=== PATIENT | female | born 1935 | race Caucasian/White ===

== ENCOUNTER 2024-07-15 11:15 | Emergency (ER) | payer MEDICARE, MEDICAID, SELFPAY ==
[2024-07-15 11:18] VITALS: BP 133/66; PULSE 74; PULSE 88; RESP 16; TEMP 36.8; O2SAT 75; O2SAT 94; BMI 16.6
--- NOTE | 2024-07-15 11:25 | EKG_ITS ---
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
--- NOTE | 2024-07-15 11:25 | PC.NURSE ---
PT HX OF COPD ON 2L O2 AT HOME BASELINE. PCP CALLED AMBULANCE DUE TO PTS O2 DROPPING TO 75% ON ROOM AIR. EMS OPLAVED ON 6L AND WAS ABLE TO GET O2 UP TO 97%. PT DOES HAVE WET COUGH.
--- NOTE | 2024-07-15 11:41 | XR_ITS ---
Examination: AP chest single view TECHNIQUE: AP portable upright chest single view Exam date and time: July 15, 2024 11:28 AM INDICATIONS: Onset chest pain today. FINDINGS: Significant hyperexpansion Normal heart size Accentuation bronchovascular markings No lobar pneumonia or pulmonary edema Prominent osteopenia IMPRESSION: COPD Bronchitis pattern
--- NOTE | 2024-07-15 11:43 | PD.EDSOB ---
ED SOB =RME/HPI General Chief Complaint: Shortness of Breath/Dyspnea Stated Complaint: SOB Time Seen by Provider: 07/15/24 11:34 Arrival date/time: 07/15/24 11:15 RME / HPI RME / HPI Narrative: 88-year-old female patient with significant history of COPD, hypertension, was brought in by EMS for evaluation regarding shortness of breath. Onset of symptoms for the last 3 to 4 days as worsening cough, shortness of breath, severity moderate. Patient usually uses 2 L nasal cannula oxygen supplementation as needed. Patient was seen in the clinic today and was noted to have O2 sat of 76. Patient was given albuterol breathing treatment by EMS on the way to the emergency room. Positive exposure to flulike symptoms last week. Denies any chest pain. Denies any fever. Denies any other complaints no medications taken prior to arrival. Related Data Home Medications ?Medication ?Instructions ?Recorded ?Confirmed alprazolam 1 mg tablet (Xanax) 1 mg PO BID PRN Anxiety ##0 03/06/13 07/02/21 alendronate 70 mg tablet 70 mg PO QWEEK 07/02/21 07/02/21 budesonide-formoterol HFA 160 2 puff inhalation BID 07/02/21 07/02/21 mcg-4.5 mcg/actuation aerosol inhaler (Symbicort) calcium 600 mg (as 1 tab PO QDAY 07/02/21 07/02/21 carbonate)-vitamin D3 10 mcg (400 unit) tablet carvedilol 25 mg tablet 25 mg PO BID 07/02/21 07/02/21 loratadine 10 mg tablet 10 mg PO QDAY 07/02/21 07/02/21 montelukast 10 mg tablet 10 mg PO QDAY 07/02/21 07/02/21 tiotropium bromide 18 mcg capsule 1 cap inhalation QDAY 07/02/21 07/02/21 with inhalation device (Spiriva with HandiHaler) Previous Rx's ?Medication ?Instructions ?Recorded pantoprazole 40 mg tablet,delayed 40 mg PO QDAY #30 tabs 07/25/23 release (Protonix) albuterol sulfate 90 mcg/actuation 2 inh inhalation QID PRN shortness 07/15/24 breath activated powder of breath or wheezing #1 ea inhaler,sensor (Proair Digihaler) prednisone 50 mg tablet 50 mg PO QDAY #7 tabs 07/15/24 Allergies Allergy/AdvReac Type Severity Reaction Status Date / Time codeine Allergy Mild Vomiting Verified 07/15/24 11:24 Review of Systems Review of Systems Narrative Review of Systems: Review of system reviewed and within normal limits except mentioned in HPI ED Exam Narrative Physical exam: VITAL SIGNS: Reviewed. GENERAL APPEARANCE: Alert and interactive, follows commands, no acute distress, HEAD AND FACE: Non-traumatic. ENT: PERRL, pink conjunctivitis, eyelid no trauma, Mucous membrane moist. NECK: Supple, nontender, no nuchal rigidity. CHEST: No tenderness, no crepitus, no paradoxical movement, no retractions. LUNGS: Symmetric, + rales, no wheezing, + ronchi, no stridor, decreased breath sounds bilaterally. HEART: Regular rate, regular rhythm, no murmur, no gallops. ABDOMEN: Soft, positive bowel sounds, nondistended, no guarding, nontender, no rebound, no masses, RECTAL: Deferred. GENITAL: Deferred. NEUROLOGICAL: Gross motor function intact sensory function intact, Appropriate for age. MUSCULOSKELETAL: low back nontender, full range of motion. EXTREMITIES: Nontender, full range of motion. SKIN: Color pink, dry, no rash, no lacerations, no abrasions, no contusions. LYMPHATICS: Deferred. Course Quality Measures none Orders Category Date Time Status EKG (ED ONLY) *Do not use* NOW Care 07/15/24 11:25 Completed EKG (ED ONLY) *Do not use* NOW Care 07/15/24 11:41 Active EKG (ED Only) Stat Exams 07/15/24 11:25 Draft EKG (ED Only) Stat Exams 07/15/24 11:41 Ordered XR chest 1V Stat Exams 07/15/24 11:41 Completed B-Type Natriuretic Peptide Stat Lab 07/15/24 11:50 Completed Blood Culture (Lab) Stat Lab 07/15/24 11:47 Received C-Reactive Protein Stat Lab 07/15/24 11:50 Completed CBC Stat Lab 07/15/24 11:50 Completed Comprehensive Metabolic Panel Stat Lab 07/15/24 11:50 Completed Lactate (Lactic Acid) Stat Lab 07/15/24 11:50 Completed Partial Thromboplastin Time Stat Lab 07/15/24 11:50 Completed Procalcitonin Stat Lab 07/15/24 11:50 Completed Prothrombin Time with INR Stat Lab 07/15/24 11:50 Completed Troponin I Stat Lab 07/15/24 11:50 Completed VBG [Venous Blood Gas] Stat Lab 07/15/24 11:50 Completed Albuterol/Ipratr Rt Lorena [Duoneb Rt Lorena] Med 07/15/24 11:42 Discontinued 3 ml INH X1 ONE MethylPREDNISolone.* [SoluMEDROL Inj] Med 07/15/24 11:43 Discontinued 125 mg IVP X1 ONE Vital Signs Vital signs: Vital Signs Temperature 98.2 F 07/15/24 11:18 Pulse Rate 88 07/15/24 11:18 Respiratory Rate 16 07/15/24 11:18 Blood Pressure 133/66 H 07/15/24 11:18 Pulse Oximetry (%) 94 L 07/15/24 11:18 Oxygen Delivery Method Nasal Cannula 07/15/24 11:18 Oxygen Flow Rate 2 07/15/24 11:18 Shortness of Breath / Dyspnea MDM Narrative MDM Narrative:: 88-year-old female patient with significant history of COPD, hypertension, was brought in by EMS for evaluation regarding shortness of breath. Onset of symptoms for the last 3 to 4 days as worsening cough, shortness of breath, severity moderate. Patient usually uses 2 L nasal cannula oxygen supplementation as needed. Patient was seen in the clinic today and was noted to have O2 sat of 76. Patient was given albuterol breathing treatment by EMS on the way to the emergency room. Positive exposure to flulike symptoms last week. Denies any chest pain. Denies any fever. Denies any other complaints no medications taken prior to arrival. Patient data External records reviewed:: EMS form Clinical information provided by:: patient and EMS Social determinants that could affect healthcare access:: none Patient has the following chronic illnesses:: Hypertension, COPD How is presenting disease/condition affected by chronic disease/condition?: exacerbated by Evaluation data The following diagnostics were reviewed and interpreted by me:: lab results, radiology exam(s) and EKG tracing(s) Lab and/or radiology exams considered but not ordered:: None Interpretation Summary: EKG as interpreted by me showed atrial fibrillation, ventricular rate of 91 bpm, no ST segment elevation or depression noted. Laboratory work came back unremarkable. Her chest x-ray also showed no infiltrates no pneumothorax no hemothorax seen for COPD pattern. Medications / Prescriptions Medications or Prescriptions considered but not ordered:: None Medication administrations:: Medication Administration History Discontinued Medications Albuterol/Ipratropium (Albuterol/Ipratropium (Duoneb) Rt [place]ore[place] 3 Ml Nebu) 3 ml INH X1 ONE Stop: 07/15/24 11:43 Methylprednisolone Sodium Succinate (Methylprednisolone Sod Succ 62.5 Mg/Ml 2ml Vial) 125 mg IVP X1 ONE Stop: 07/15/24 11:44 Last Admin: 07/15/24 12:54 Dose: 125 mg Documented By: KASHIF Solu-Medrol IV and DuoNeb breathing treatment Consultations Consultation(s) initiated? (list below): No Diagnosis Shortness of Breath Differential Diagnosis: acute exacerbation of chronic obstructive airways disease, congestive heart failure and community acquired pneumonia Most likely diagnosis given after review of the tests above:: Acute exacerbation of COPD Admission Indicated Admission indicated?: not indicated Explain why admission is indicated or not indicated:: Stable for discharge. Patient is satting 96% on 2 L. Patient is using oxygen at home 17/03. Admission Request Was there a request for admission?: No Disposition Plan Disposition Plan: Discharge Discharge Attestation Discharge Attestation: The patient and all family members were given an opportunity to ask questions and understood the discharge instructions. Discharge instructions specifically effects, indications for sooner follow up or return to the emergency department, and the expected course of current diagnosis. Patient condition: Stable Discharge Plan Plan Patient Disposition: HOME (Self Care) Disposition Comment: Stable Prescriptions/Referrals Prescriptions/Med Rec: New prednisone 50 mg tablet 50 mg PO QDAY Qty: 7 0RF Proair Digihaler 90 mcg/actuation aero powdr breath act w/sensor 2 inh inhalation QID PRN (Reason: shortness of breath or wheezing) Qty: 1 0RF No Action alprazolam [Xanax] 1 MG tablet 1 mg PO BID PRN (Reason: Anxiety) Qty: 0 carvedilol 25 mg tablet 25 mg PO BID alendronate 70 mg tablet 70 mg PO QWEEK montelukast 10 mg tablet 10 mg PO QDAY loratadine 10 mg tablet 10 mg PO QDAY Spiriva with HandiHaler 18 mcg capsule, w/inhalation device 1 cap INHALATION QDAY calcium carbonate-vitamin D3 600 mg(1,500mg) -400 unit tablet 1 tab PO QDAY budesonide-formoterol [Symbicort] 160-4.5 mcg/actuation HFA aerosol inhaler 2 puff INHALATION BID pantoprazole [Protonix] 40 mg tablet,delayed release (DR/EC) 40 mg PO QDAY Qty: 30 0RF Referrals: No Primary/Family,Physician [Primary Care Provider] - In 1 week Problem List Clinical Impression: Acute exacerbation of chronic obstructive airways disease Patient/Caregiver Discharge Instructions Discharge Activity: activity as tolerated Education Materials: COPD: Coping with Fatigue Additional Instructions: Thank you for the opportunity for serving you today. You are stable for discharged . You are advised to: Follow-up with your PCP in 1 to 2 days Return to ED for worsening of symptoms Take medication as prescribed Print Language: Estonian Stand Alone Forms: Karen Award Info., Patient Portal Info Letter PA/SHY Supervising Physician GEE/SHY Supervising Physician: MD Misty
[2024-07-15 11:59] LABS: Base Excess, Venous 12 (-3-3); Lactate (Lactic Acid) 1.1 mMol/L (0.4-2.0); O2 Saturation, Venous 46 % (96-97); PCO2, Venous 74 mmHg (36-56); PO2, Venous 25 mmHg (15-58); pH, Venous 7.35 (7.33-7.66)
[2024-07-15 12:01] LABS: Basophils # (Auto) 0.1 Thou/mm3 (0.0-0.2); Basophils % (Auto) 1 % (0-2.5); Eosinophils % (Auto) 0 % (0-10); Hematocrit 40.9 % (36.0-46.0); Hemoglobin 12.4 g/dL (12.0-16.0); Immature Granulocytes % (Auto) 0 % (0-0); Immature Granulocytes Auto 0.02 Thou/mm3 (0.00-0.00); Lymphocytes % (Auto) 15 % (10-50); Mean Corpuscular HGB Conc 30.3 g/dl (31.0-37.0); Mean Corpuscular Hemoglobin 26.7 pg (25.0-35.0); Mean Corpuscular Volume 88 fL (80-100); Monocytes # (Auto) 0.5 Thou/mm3 (0.0-0.8); Monocytes % (Auto) 7 % (0-12); Neutrophils # (Auto) 5.2 Thou/mm3 (1.8-7.7); Neutrophils % (Auto) 77 % (37-80); Nucleated Red Blood Cell % 0 /100 WBC (0); Platelet Count 264 Thou/mm3 (140-440); RDW Standard Deviation 45.6 fL (36.4-46.3); Red Blood Count 4.64 Miln/mm3 (4.00-5.20); White Blood Count 6.7 Thou/mm3 (3.6-11.0)
[2024-07-15 12:15] LABS: Partial Thromboplastin Time 24.1 Seconds (22.0-36.0); Prothrombin Time 11.2 Seconds (9.0-12.2)
[2024-07-15 12:17] LABS: B-Type Natriuretic Peptide 218 pg/mL (0-100)
[2024-07-15 12:33] LABS: Alanine Aminotransferase 11 U/L (10-49); Albumin, Serum 4.3 gm/dL (3.4-4.8); Albumin/Globulin Ratio 1.5 (1.2-2.2); Alkaline Phosphatase 121 U/L (46-116); Anion Gap 2 (7-16); Aspartate Amino Transferase 21 U/L (0-34); BUN/Creatinine Ratio 13 Ratio (12-20); Bilirubin,Total 0.9 mg/dL (0.3-1.2); Blood Urea Nitrogen 12 mg/dL (9-23); C-Reactive Protein 1.3 mg/dL (0.0-0.9); Calcium 10.3 mg/dL (8.3-10.6); Calcium (Corrected) 10.3 mg/dL (8.5-10.1); Carbon Dioxide 37.6 mMol/L (20.0-31.0); Chloride 98 mMol/L (98-107); Creatinine (Component) 0.9 mg/dL (0.6-1.3); Estimated Creatinine Clearance 27.8 mL/min (>60); Globulin 2.8 gm/dL (2.3-3.5); Glucose 106 mg/dL (74-106); Osmolality,Calculated 275 (275-295); Potassium 4.3 mMol/L (3.4-5.1); Procalcitonin 0.91 ng/ml (0.0-0.49); Sodium 138 mMol/L (136-145); Total Protein 7.1 gm/dL (5.7-8.2); Troponin I < 0.020 ng/mL (0.0-0.045); eGFR > 60 See Note
[2024-07-15] MEDS: MethylPREDNISolone SOD SUCC 62.5 MG/ML 2ML VIAL 125 MG IVP (12:54)
== END 2024-07-15 17:00 | disposition home or self-care (01) ==
PROVIDERS: Nurse Practitioner Family; Emergency Provider Emergency Medicine
DX: J44.1 Chronic obstructive pulmonary disease with (acute) exacerbation (principal); I48.91 Unspecified atrial fibrillation; I10 Essential (primary) hypertension; Z79.51 Long term (current) use of inhaled steroids
CPT/HCPCS: 36415; 71045; 80053; 82803; 83605; 83880; 84145; 84484; 85025; 85610; 85730; 86140; 87040; 93005; 96374; 99284; J2919

== ENCOUNTER → 2024-09-29 | Outpatient (CLI) | payer MEDICARE, MEDICAID, SELFPAY ==
--- NOTE | 2024-09-29 10:30 | XR_ITS ---
Examination: MRI brain without intravenous contrast. Date and time of exam: September 29, 2024 1146 hours INDICATIONS: Psychosis with dementia months Technique: Multiple axial and sagittal images of the brain obtained. Siemens high-resolution 1.5 Heather short bore scanners utilized. Sagittal sections, T1-weighted, TR 500, TE 14, are performed. Axial sections proton-density and T2-weighted have been obtained. Inversion recovery axial images, TR 9, 260, TE 111, TI 2500. Diffusion weighted images, axial sections, TR 4800, TE 128, B value 1000 Axial sections, ADC map, TR 4800, TE 128 Findings: Enlargement of the sella turcica is not present. The optic chiasm and infundibular are not remarkable. Prepontine and interpeduncular cisterns are not enlarged. There is no localized enlargement of the medulla or remberto. Fourth ventricle and cerebellar tonsils appear normal in position. No subacute area of hemorrhage density is seen. Mass in the cerebellopontine angle region is not evident. Globes symmetrical. Orbital musculature including medial lateral rectus muscles do not exhibit abnormality. Diffusion-weighted images demonstrate no focus of restricted diffusion. Increased white matter signal prominent Mass effect upon the ventricular system is not identified. Impression: Negative for acute hemorrhage, mass effect or midline shift Moderate atrophy Prominent chronic microvascular white matter change
== END | disposition home or self-care (01) ==
PROVIDERS: PCP Family Medicine; Referring Provider Nurse Practitioner Family; Visit Provider Nurse Practitioner Family
DX: G93.9 Disorder of brain, unspecified (principal); R90.82 White matter disease, unspecified
CPT/HCPCS: 70551

== ENCOUNTER → 2024-11-10 | Outpatient (CLI) | payer MEDICARE, MEDICAID, SELFPAY ==
[2024-11-10 09:56] LABS: Basophils # (Auto) 0.1 Thou/mm3 (0.0-0.2); Basophils % (Auto) 2 % (0-2.5); Eosinophils # (Auto) 0.1 Thou/mm3 (0.0-0.5); Eosinophils % (Auto) 2 % (0-10); Hematocrit 41.4 % (36.0-46.0); Hemoglobin 12.5 g/dL (12.0-16.0); Immature Granulocytes % (Auto) 0 % (0-0); Immature Granulocytes Auto 0.01 Thou/mm3 (0.00-0.00); Lymphocytes # (Auto) 1.7 Thou/mm3 (1.0-4.8); Lymphocytes % (Auto) 29 % (10-50); Mean Corpuscular HGB Conc 30.2 g/dl (31.0-37.0); Mean Corpuscular Volume 83 fL (80-100); Monocytes # (Auto) 0.4 Thou/mm3 (0.0-0.8); Monocytes % (Auto) 8 % (0-12); Neutrophils # (Auto) 3.3 Thou/mm3 (1.8-7.7); Neutrophils % (Auto) 59 % (37-80); Nucleated Red Blood Cell % 0 /100 WBC (0); Platelet Count 275 Thou/mm3 (140-440); White Blood Count 5.7 Thou/mm3 (3.6-11.0)
[2024-11-10 10:03] LABS: Glucose Estimated Average 108 mg/dL (80-131); Hemoglobin A1C 5.4 % Hgb (4.8-6.0)
[2024-11-10 10:20] LABS: Folate 13.92 ng/mL (>5.38); Vitamin B12 > 2000 pg/mL (211-911); Vitamin D 25 Hydroxy Total 39.1 ng/mL (7.3-40.2)
[2024-11-10 10:29] LABS: Alanine Aminotransferase 8 U/L (10-49); Albumin, Serum 4.4 gm/dL (3.4-4.8); Albumin/Globulin Ratio 1.7 (1.2-2.2); Alkaline Phosphatase 137 U/L (46-116); Anion Gap 8 (7-16); Aspartate Amino Transferase 27 U/L (0-34); BUN/Creatinine Ratio 13 Ratio (12-20); Bilirubin,Total 0.8 mg/dL (0.3-1.2); Blood Urea Nitrogen 13 mg/dL (9-23); Calcium 10.3 mg/dL (8.3-10.6); Calcium (Corrected) 10.3 mg/dL (8.5-10.1); Carbon Dioxide 32.3 mMol/L (20.0-31.0); Cardiac Risk Estimate 2.2 RATIO (3.7-5.6); Chloride 101 mMol/L (98-107); Cholesterol 166 mg/dL (132-200); Globulin 2.6 gm/dL (2.3-3.5); Glucose 106 mg/dL (74-106); HDL Cholesterol 74 mg/dL (40-60); LDL Cholesterol,Calculated 77 mg/dL (0-130); Magnesium 2.3 mg/dL (1.6-2.6); Osmolality,Calculated 281 (275-295); Potassium 4.8 mMol/L (3.4-5.1); Sodium 141 mMol/L (136-145); Thyroid Stimulating Hormone 2.86 uIU/mL (0.55-4.78); Triglycerides 73 mg/dL (30-150); eGFR 55 See Note
[2024-11-10 11:13] LABS: Syphilis Nonreactive (Nonreactive)
[2024-11-17 07:21] LABS: Vitamin B1 (Thiamine)* 23 nmol/L (8-30); Vitamin B6, Plasma* 19.2 ng/mL (2.1-21.7)
== END | disposition home or self-care (01) ==
LOC: COPL 08:34
PROVIDERS: PCP Family Medicine; Referring Provider Psychiatry & Neurology Neurology; Visit Provider Nurse Practitioner Family
DX: E78.5 Hyperlipidemia, unspecified (principal); E83.52 Hypercalcemia; F03.90 Unspecified dementia, unspecified severity, without behavioral disturbance, psychotic disturbance, mood disturbance, and anxiety; F41.9 Anxiety disorder, unspecified; I10 Essential (primary) hypertension; R41.3 Other amnesia; R89.1 Abnormal level of hormones in specimens from other organs, systems and tissues
CPT/HCPCS: 36415; 80053; 80061; 80307; 82306; 82607; 82746; 83036; 83735; 83880; 84207; 84425; 84443; 85025; 86703; 86780

== ENCOUNTER → 2025-05-09 | Outpatient (CLI) | payer MEDICARE, MEDICAID, SELFPAY ==
[2025-05-09 11:56] LABS: Collection Type, Urine Clean Catch
[2025-05-09 12:20] LABS: Basophils # (Auto) 0.1 Thou/mm3 (0.0-0.2); Basophils % (Auto) 2 % (0-2.5); Eosinophils # (Auto) 0.1 Thou/mm3 (0.0-0.5); Eosinophils % (Auto) 3 % (0-10); Hematocrit 39.6 % (36.0-46.0); Hemoglobin 11.9 g/dL (12.0-16.0); Immature Granulocytes Auto 0.01 Thou/mm3 (0.00-0.00); Lymphocytes # (Auto) 1.5 Thou/mm3 (1.0-4.8); Lymphocytes % (Auto) 29 % (10-50); Mean Corpuscular HGB Conc 30.1 g/dl (31.0-37.0); Mean Corpuscular Hemoglobin 26.3 pg (25.0-35.0); Mean Corpuscular Volume 88 fL (80-100); Monocytes # (Auto) 0.5 Thou/mm3 (0.0-0.8); Monocytes % (Auto) 10 % (0-12); Neutrophils # (Auto) 3.1 Thou/mm3 (1.8-7.7); Neutrophils % (Auto) 58 % (37-80); Nucleated Red Blood Cell # 0.00 Thou/mm3 (0.00-0.00); Nucleated Red Blood Cell % 0 /100 WBC (0); Platelet Count 268 Thou/mm3 (140-440); RDW Standard Deviation 47.4 fL (36.4-46.3); Red Blood Count 4.52 Miln/mm3 (4.00-5.20); White Blood Count 5.3 Thou/mm3 (3.6-11.0)
[2025-05-09 12:29] LABS: Bilirubin,Urine Negative (Negative); Blood,Urine Negative (Negative); Clarity,Urine Clear (Clear/Hazy); Color,Urine Yellow (Lt Yel-Yel); Culture Indicated,Urine Not Indicated; Glucose, Urine Negative (Negative); Ketones,Urine Negative (Negative); Leukocyte Esterase,Urine Negative (Negative); Nitrite,Urine Negative (Negative); PH,Urine 6.0 (5.0-7.0); Protein,Urine Negative (Neg - Trace); RBC,Urine 1 /hpf (0-3); Specific Gravity,Urine 1.025 (1.001-1.035); Squamous Epithelial Cell,Urine 2 /hpf (0-5); Urobilinogen,Urine Negative mg/dL (0.0-1.0); WBC,Urine 2 /hpf (0-5)
[2025-05-09 12:37] LABS: Alanine Aminotransferase 10 U/L (10-49); Albumin, Serum 4.2 gm/dL (3.4-4.8); Albumin/Globulin Ratio 1.8 (1.2-2.2); Alkaline Phosphatase 88 U/L (46-116); Anion Gap 7 (7-16); Aspartate Amino Transferase 26 U/L (0-34); BUN/Creatinine Ratio 10 Ratio (12-20); Bilirubin,Total 0.6 mg/dL (0.3-1.2); Blood Urea Nitrogen 9 mg/dL (9-23); C-Reactive Protein < 0.5 mg/dL (0.0-0.9); Calcium 10.7 mg/dL (8.3-10.6); Calcium (Corrected) 10.7 mg/dL (8.5-10.1); Carbon Dioxide 35.6 mMol/L (20.0-31.0); Cardiac Risk Estimate 2.2 RATIO (3.7-5.6); Chloride 101 mMol/L (98-107); Cholesterol 159 mg/dL (132-200); Creatinine (Component) 0.9 mg/dL (0.6-1.3); Globulin 2.3 gm/dL (2.3-3.5); Glucose 116 mg/dL (74-106); HDL Cholesterol 71 mg/dL (40-60); LDL Cholesterol,Calculated 73 mg/dL (0-130); Magnesium 2.4 mg/dL (1.6-2.6); Osmolality,Calculated 286 (275-295); Potassium 4.1 mMol/L (3.4-5.1); Sodium 144 mMol/L (136-145); Total Protein 6.5 gm/dL (5.7-8.2); Triglycerides 75 mg/dL (30-150); eGFR > 60 See Note
== END | disposition home or self-care (01) ==
LOC: COPL 11:24
PROVIDERS: PCP Family Medicine; Referring Provider Nurse Practitioner Family; Visit Provider Nurse Practitioner Family
DX: E78.5 Hyperlipidemia, unspecified (principal); I12.9 Hypertensive chronic kidney disease with stage 1 through stage 4 chronic kidney disease, or unspecified chronic kidney disease; N18.9 Chronic kidney disease, unspecified; M81.0 Age-related osteoporosis without current pathological fracture; R89.1 Abnormal level of hormones in specimens from other organs, systems and tissues
CPT/HCPCS: 36415; 80053; 80061; 81001; 82306; 83735; 83880; 85025; 86140

== ENCOUNTER → 2025-05-25 | Outpatient (CLI) | payer MEDICARE, MEDICAID, SELFPAY ==
[2025-05-25 12:21] LABS: Parathyroid Hormone Intact 190.9 pg/ml (18.5-88.0)
[2025-05-25 12:25] LABS: Vitamin D 25 Hydroxy Total 35.7 ng/mL (7.3-40.2)
[2025-05-25 12:36] LABS: Anion Gap 9 (7-16); BUN/Creatinine Ratio 11 Ratio (12-20); Blood Urea Nitrogen 10 mg/dL (9-23); Calcium 10.3 mg/dL (8.3-10.6); Carbon Dioxide 34.3 mMol/L (20.0-31.0); Chloride 100 mMol/L (98-107); Creatinine (Component) 0.9 mg/dL (0.6-1.3); Glucose 111 mg/dL (74-106); Osmolality,Calculated 284 (275-295); Potassium 4.1 mMol/L (3.4-5.1); Sodium 143 mMol/L (136-145); eGFR > 60 See Note
== END | disposition home or self-care (01) ==
PROVIDERS: PCP Nurse Practitioner Family; Referring Provider Nurse Practitioner Family; Visit Provider Nurse Practitioner Family
DX: E83.52 Hypercalcemia (principal)
CPT/HCPCS: 36415; 80048; 82306; 83970

== ENCOUNTER → 2025-06-08 | Outpatient (CLI) | payer MEDICARE, MEDICAID, SELFPAY ==
--- NOTE | 2025-06-08 10:13 | XR_ITS ---
Examination: Wrist, right 3 views Technique: Wrist AP, oblique, lateral 3 views Date and time of exam: June 08, 2025, 1020 hours INDICATIONS: Cyst on the ulnar side of the right wrist over a year FINDINGS: Severe osteopenia Mild to moderate narrowing radiocarpal intercarpal carpometacarpal joints. No erosive arthritis. No fracture. No avascular necrosis. IMPRESSION: Severe osteopenia Mild to moderate narrowing radiocarpal intercarpal and carpometacarpal joints
--- NOTE | 2025-06-08 10:13 | XR_ITS ---
Examination: Hand, right 3 views Technique: Hand AP, oblique, lateral 3 views Date and time of exam: June 08, 2025, 1002 hours INDICATIONS: Palpable mass on the ulnar side of the wrist 1 year FINDINGS: Severe osteopenia. No fracture Mild to moderate diffuse narrowing joints of the wrist and hand No erosive arthritis IMPRESSION: Severe osteopenia Mild to moderate diffuse narrowing joints of the wrist and hand
[2025-06-08 12:49] LABS: Parathyroid Hormone Intact 175.5 pg/ml (18.5-88.0)
[2025-06-08 13:01] LABS: Calcium 10.5 mg/dL (8.3-10.6); Thyroid Stimulating Hormone 2.38 uIU/mL (0.55-4.78)
[2025-06-08 16:40] LABS: Free T4 (Free Thyroxine) 1.18 ng/dL (0.89-1.76)
== END | disposition home or self-care (01) ==
LOC: CDIM 10:03
PROVIDERS: PCP Family Medicine; Referring Provider Nurse Practitioner Family; Visit Provider Nurse Practitioner Gerontology
DX: M85.88 Other specified disorders of bone density and structure, other site (principal); M25.831 Other specified joint disorders, right wrist; M25.841 Other specified joint disorders, right hand; E21.3 Hyperparathyroidism, unspecified
CPT/HCPCS: 36415; 73110; 73130; 82310; 83970; 84439; 84443

== ENCOUNTER → 2025-06-13 | Outpatient (CLI) | payer MEDICARE, MEDICAID, SELFPAY ==
--- NOTE | 2025-06-13 | XR_ITS ---
Examination: Abdomen sonogram, Limited Date and time of exam: June 13, 2025, 1124 hours INDICATIONS: Onset left lower abdominal pain beginning 1 year ago Technique: Real-time adkins scale transabdominal sonographic images of the upper abdomen obtained. Findings: No cystic or solid mass at the area of concern in the left lower abdomen IMPRESSION: Negative study
--- NOTE | 2025-06-13 11:30 | XR_ITS ---
EXAMINATION: Ultrasound soft tissue extremity right wrist TECHNIQUE: Grayscale sonographic images soft tissue right wrist Date and time: June 13, 2025, 1120 hours INDICATIONS: Palpable wrist lump and pain several years. FINDINGS: Solid mass in the right wrist at the area of concern 2.9 x 0.6 x 2.7 cm IMPRESSION: Soft tissue mass isoechoic at the area of concern in the wrist 2.9 x 0.6 x 2.7 cm which may represent lipoma, consider 6-month follow-up ultrasound soft tissue wrist
== END | disposition home or self-care (01) ==
PROVIDERS: PCP Family Medicine; Referring Provider Nurse Practitioner Family; Visit Provider Nurse Practitioner Family
DX: R22.31 Localized swelling, mass and lump, right upper limb (principal); R10.9 Unspecified abdominal pain
CPT/HCPCS: 76705; 76882

== ENCOUNTER → 2025-06-23 | Outpatient (CLI) | payer MEDICARE, MEDICAID, SELFPAY ==
--- NOTE | 2025-06-23 10:52 | XR_ITS ---
Examination: CT abdomen without intravenous contrast. Coronal 2-D reconstructions. Sagittal 2-D reconstructions. Date and time of exam: May 27, 2025, 1104 hours, comparison July 25, 2023 INDICATIONS: Epigastric mass or lump in the abdomen 1 week CTDI: vol (mGy): 3.14 DLP: (mGycm): 97 Technique: Axial images of the abdomen have been obtained, 3 mm slice thickness, without intravenous contrast 2-D sagittal coronal reconstructions Low dose protocols were performed. One or more of the following dose reduction techniques were used; automated exposure control, adjustment of the mA and/or KV according to patient size, use of iterative reconstruction technique. Findings: No focal liver or splenic lesion No definite pancreatic mass No renal or ureteral calculi, no hydronephrosis No gallstones Heavy abdominal aortic calcification Abundant stool throughout the colon Colonic diverticulosis, no diverticulitis Partial visualization 3.5 cm posterior right pelvic cyst IMPRESSION: Limited noncontrast study of the abdomen No renal or ureteral calculi, no hydronephrosis Abundant stool throughout the colon, no obstruction Colonic diverticulosis, no diverticulitis Recommend pelvic sonography to assess 3.5 cm posterior right pelvic cyst
--- NOTE | 2025-06-23 10:52 | XR_ITS ---
EXAMINATION: Lumbar spine 3 views TECHNIQUE: AP lateral, lateral lower lumbar spine 3 views Date and time: June 23, 2025, 1114 hours INDICATIONS: Low back pain several years. FINDINGS: Severe osteopenia Lumbar dextroscoliosis 15 degrees Grade 1 anterolisthesis L4 on L5, L3 on L2 Diffuse lumbar degenerative disc disease, advanced at L2-L3, L3-L4, L5-S1 Prominent facet arthropathy IMPRESSION: Diffuse lumbar degenerative disc disease, advanced at L2-L3, L3-L4, L5-S1 with spinal stenosis
== END | disposition home or self-care (01) ==
PROVIDERS: PCP Nurse Practitioner Family; Referring Provider Nurse Practitioner Family; Visit Provider Nurse Practitioner Family
DX: M51.360 Other intervertebral disc degeneration, lumbar region with discogenic back pain only (principal); M51.370 Other intervertebral disc degeneration, lumbosacral region with discogenic back pain only; M48.07 Spinal stenosis, lumbosacral region; K59.00 Constipation, unspecified; K57.30 Diverticulosis of large intestine without perforation or abscess without bleeding
CPT/HCPCS: 72100; 74150

== ENCOUNTER → 2025-07-13 | Outpatient (CLI) | payer MEDICARE, MEDICAID, SELFPAY ==
--- NOTE | 2025-07-13 13:11 | XR_ITS ---
Examination: Pelvic ultrasound, transabdominal, complete Technique: Transabdominal ultrasound of the pelvis performed using grayscale imaging Date and time of exam: July 13, 2025, 1326 hours INDICATIONS: Pelvic pain and swelling beginning 1 year ago FINDINGS: Uterus 6.6 cm free fluid in the endometrium Endometrial stripe 11 mm No solid uterine mass Calcifications throughout the uterus Right ovary 5.1 cm arterial flow, 4.7 x 3.0 cm cyst Left ovary 7.7 cm arterial flow, solid left adnexal mass 7 6.7 cm IMPRESSION: Recommend MRI pelvis follow-up pre and postcontrast to assess solid left ovarian mass 6.7 x 4.5 x 4.9 cm, differential including ovarian tumor
--- NOTE | 2025-07-13 13:18 | XR_ITS ---
Examination: CT abdomen and pelvis without contrast. Coronal 3-D reconstructions. Sagittal 2-D reconstructions. Date and time of exam: July 13, 2025: 1352 hours, comparison June 23, 2025 INDICATIONS: Mid abdominal pain beginning 2 days ago CTDI: vol (mGy): 4.40 DLP: (mGycm): 204 Technique: Axial images of the abdomen have been obtained, 3 mm slice thickness Intravenous contrast material has not been administered. Low dose protocols were performed. One or more of the following dose reduction techniques were used; automated exposure control, adjustment of the mA and/or KV according to patient size, use of iterative reconstruction technique. Findings: No visualized liver or splenic lesion Gallbladder not visualized No extrahepatic biliary tract dilatation No pancreatic mass No renal or ureteral calculi, no hydronephrosis No bowel obstruction Normal appendix Colonic diverticulosis, no diverticulitis 3.7 cm right pelvic cyst Urinary bladder intact Atrophic uterus Severe osteopenia with advanced disc narrowing L2-L3, L3-L4, L5-S1 IMPRESSION: Recommend pelvic sonography to assess 3.7 cm right pelvic cyst
--- NOTE | 2025-07-13 13:45 | XR_ITS ---
EXAMINATION: PA lateral chest 2 views TECHNIQUE: Upright PA lateral chest 2 views Date and time: July 13, 2025, 1430 hours INDICATIONS: Chronic shortness of breath COPD diagnosis FINDINGS: Prominent hyperexpansion. Opacity right upper lobe suspicious for early pneumonia Prominent central pulmonary arteries Severe osteopenia Normal heart size IMPRESSION: COPD with significant hyperexpansion Suspicious for early pneumonia in the right upper lobe
[2025-07-13 15:15] LABS: Basophils # (Auto) 0.1 Thou/mm3 (0.0-0.2); Basophils % (Auto) 2 % (0-2.5); Eosinophils # (Auto) 0.6 Thou/mm3 (0.0-0.5); Eosinophils % (Auto) 7 % (0-10); Hematocrit 40.1 % (36.0-46.0); Hemoglobin 11.9 g/dL (12.0-16.0); Immature Granulocytes Auto 0.03 Thou/mm3 (0.00-0.00); Lymphocytes # (Auto) 1.3 Thou/mm3 (1.0-4.8); Lymphocytes % (Auto) 15 % (10-50); Mean Corpuscular HGB Conc 29.7 g/dl (31.0-37.0); Mean Corpuscular Hemoglobin 25.7 pg (25.0-35.0); Mean Corpuscular Volume 87 fL (80-100); Monocytes # (Auto) 0.9 Thou/mm3 (0.0-0.8); Monocytes % (Auto) 10 % (0-12); Neutrophils # (Auto) 5.9 Thou/mm3 (1.8-7.7); Neutrophils % (Auto) 66 % (37-80); Nucleated Red Blood Cell # 0.00 Thou/mm3 (0.00-0.00); Nucleated Red Blood Cell % 0 /100 WBC (0); Platelet Count 460 Thou/mm3 (140-440); RDW Standard Deviation 45.5 fL (36.4-46.3); Red Blood Count 4.63 Miln/mm3 (4.00-5.20); White Blood Count 8.9 Thou/mm3 (3.6-11.0)
[2025-07-13 15:42] LABS: Alanine Aminotransferase < 7 U/L (10-49); Albumin, Serum 4.6 gm/dL (3.4-4.8); Albumin/Globulin Ratio 1.8 (1.2-2.2); Alkaline Phosphatase 119 U/L (46-116); Anion Gap 10 (7-16); Aspartate Amino Transferase 22 U/L (0-34); BUN/Creatinine Ratio 13 Ratio (12-20); Bilirubin,Total 0.4 mg/dL (0.3-1.2); Blood Urea Nitrogen 10 mg/dL (9-23); Calcium 10.2 mg/dL (8.3-10.6); Calcium (Corrected) 10.2 mg/dL (8.5-10.1); Carbon Dioxide 35.1 mMol/L (20.0-31.0); Chloride 98 mMol/L (98-107); Creatinine (Component) 0.8 mg/dL (0.6-1.3); Globulin 2.6 gm/dL (2.3-3.5); Glucose 111 mg/dL (74-106); Lipase 30 U/L (12-53); Osmolality,Calculated 284 (275-295); Potassium 3.3 mMol/L (3.4-5.1); Sodium 143 mMol/L (136-145); Total Protein 7.2 gm/dL (5.7-8.2); eGFR > 60 See Note
== END | disposition home or self-care (01) ==
LOC: CCTX 12:55
PROVIDERS: PCP Nurse Practitioner Family; Referring Provider Nurse Practitioner Family; Visit Provider Nurse Practitioner Family
DX: R19.00 Intra-abdominal and pelvic swelling, mass and lump, unspecified site (principal); N83.8 Other noninflammatory disorders of ovary, fallopian tube and broad ligament; J44.9 Chronic obstructive pulmonary disease, unspecified
CPT/HCPCS: 36415; 71046; 74176; 76856; 80053; 83690; 85025

== ENCOUNTER 2025-07-25 12:53 | Emergency (ER) | payer MEDICARE, MEDICAID, SELFPAY ==
[2025-07-25 12:57] VITALS: BP 125/73; PULSE 70; RESP 18; TEMP 36.3; O2SAT 96
[2025-07-25 13:07] VITALS: PULSE 88; O2SAT 96
--- NOTE | 2025-07-25 13:13 | EKG_ITS ---
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1935 Requested By: ED Temporary Provider Order Number: [id number] Reading MD: ED Temporary Provider Measurements Intervals [place] Rate: 72 P: 88 MS: 294 QRS: 68 QRSD: 93 T: 46 QT: 390 QTc: 427 Interpretive Statements SINUS RHYTHM WITH FIRST DEGREE AV BLOCK ANTERIOR MYOCARDIAL INFARCTION , PROBABLY OLD [40+ ms Q WAVE AND/OR ST/T ABNORMALITY IN V3/V4] POSSIBLE INFERIOR MYOCARDIAL INFARCTION , PROBABLY OLD [30 ms Q WAVE IN II/aVF] Compared to ECG 07/15/2024 11:34:14 First degree AV block now present Atrial fibrillation no longer present Myocardial infarct finding still present /store/S0/[id number]/[id number]
--- NOTE | 2025-07-25 13:23 | XR_ITS ---
EXAMINATION: AP chest single view TECHNIQUE: AP portable semiupright chest single view Date and time: July 25, 2025, 1337 hours, comparison July 13, 2025 INDICATION: Shortness of breath today. FINDINGS: Normal heart size Mild to moderate vascular congestion. No interval pneumonia or pulmonary edema Prominent osteopenia IMPRESSION: Mild to moderate vascular congestion
--- NOTE | 2025-07-25 13:23 | EDNOTE_ITS ---
<Statement entered by Ila You MD - 07/25/25 17:15> As co-signing physician, I was present and available for consult prn. I concur with the plan and care as documented by the midlevel provider. ED General RME/HPI General Chief complaint: Weakness Stated complaint: WEAKNESS Time Seen by Provider: 07/25/25 13:17 Arrival date/time: 07/25/25 12:53 CC: Weakness HPI patient presents to the ER via EMS with generalized weakness. Patient states her son called the ambulance. Patient is noted to be mildly tachypneic with anterior retractions while speaking to me. The patient states she no longer smoke. EMS report that she uses oxygen at nighttime however the patient states she does not use oxygen initial assessment the patient's oxygen saturations were 97% on room air. Patient currently denies chest pain. Related Data Home Medications ?Medication ?Instructions ?Recorded ?Confirmed alprazolam 1 mg tablet (Xanax) 1 mg PO BID PRN Anxiety ##0 03/06/13 07/02/21 alendronate 70 mg tablet 70 mg PO QWEEK 07/02/2104/14 budesonide-formoterol HFA 160 2 puff inhalation BID 07/02/21 mcg-4.5 mcg/actuation aerosol inhaler (Symbicort) calcium 600 mg (as 1 tab PO QDAY 07/02/2107/02 carbonate)-vitamin D3 10 mcg (400 unit) tablet carvedilol 25 mg tablet 25 mg PO BID 07/02/21 loratadine 10 mg tablet 10 mg PO QDAY 07/02/2107/02 montelukast 10 mg tablet 10 mg PO QDAY 07/02/2107/02 tiotropium bromide 18 mcg capsule 1 cap inhalation QDA Y 07/02/21 07/02/21 with inhalation device (Spiriva with HandiHaler) Previous Rx's ?Medication ?Instructions ?Recorded pantoprazole 40 mg tablet,delayed 40 mg PO QDAY #30 ta bs 07/25/23 release (Protonix) albuterol sulfate 90 mcg/actuation 2 inh inhalation QI D PRN shortness 07/15/24 breath activated powder of breath or wheezing #1 ea inhaler,sensor (Proair Digihaler) prednisone 50 mg tablet 50 mg PO QDAY #7 tabs Allergies Allergy/AdvReac Type Severity Reaction Status Date / Time codeine Allergy Mild Vomiting Verified 07/15/24 11:24 Review of Systems Review of Systems Narrative Review of Systems: GEN: No fever, no chills, no weight loss EYES: No discharge, no visual changes, no pain HEENT: No ear pain, no congestion, no sore throat PULM: No shortness of breath, no cough, no congestion CV: No chest pain, no dyspnea on exertion, no palpitations GI: No nausea, no vomiting, no diarrhea, no pain, no constipation : No frequency, no urgency, no dysuria MUSC/SKEL: No joint pain, no back pain SKIN: No rash PSYCH: No hallucinations, no depression HEME/LYMPH: No easy bleeding or bruising tendencies NEURO: + weakness, no headache Past Medical History Past Medical History CARDIAC: Positive Hypertension; Negative Cardiac Disorders or Congestive Heart Failure RESPIRATORY: Positive Asthma; Negative Chronic Obstructive Pulmonary Disease (COPD) GENITOURINARY: Negative Renal Disease ENDOCRINE: Negative Diabetes Mellitus Type 1 or Diabetes Mellitus Type 2 HEMATOLOGIC: Negative Sickle Cell Disease Social History SMOKING STATUS: Unknown if ever smoked SECOND HAND EXPOSURE: Yes ED Exam Narrative Physical exam: [General: Thin borderline emaciated appears not in any acute distress Head normocephalic HEENT: Eyes pupils are PERRLA EOMs are intact mouth [place] dry membranes uvula is midline swallow symmetrical phonation is normal. Hard of hearing. All other subsystems of HEENT are within acceptable limits Neck is supple nontender Chest equal chest rise nontender to palpation subtle base of neck retractions. Respiratory: Clear to auscultation no wheezes crackles or rubs CV: Rate rhythm is regular no murmurs rubs or clicks Abdomen is soft nontender no masses positive bowel sounds all 4 quadrants Back: No CVA tenderness no spinous process tenderness from cervical spine thoracic and lumbar spine Skin: Intact no petechiae rash induration ulceration or crepitus Extremities: Moving all extremity against resistance cap refill less than 2 seconds neurosensory intact Neuro: Awake alert oriented x2, person and place, Glascow coma 15 no focal deficits] Course Course Course Narrative: Patient remained stable on 2 L nasal cannula oxygen saturations of 96%. Review the laboratory results show that the patient has no acute finding requires emergent or immediate intervention. Sodium is mildly elevated no other acute finding other than she is positive for benzos. This may contribute to her fatigue or weakness. Chest x-ray shows the patient has some vascular congestion. But no pneumonia. Patient will be discharged home for weakness. Quality Measures none Orders Category Date Time Status EKG (ED ONLY) *Do not use* NOW Care 07/25/25 13:13 Completed In and Out Catheter X1 Care 07/25/25 13:29 Completed EKG (ED Only) Stat Exams 07/25/25 13:13 Draft XR chest 1V Stat Exams 07/25/25 13:23 Completed B-Type Natriuretic Peptide Stat Lab 07/25/25 13:56 Completed CBC Stat Lab 07/25/25 13:56 Completed Comprehensive Metabolic Panel Stat Lab 07/25/25 13:56 Completed Drug Screen,Urine Stat Lab 07/25/25 13:35 Completed LDH (Lactate Dehydrogenase) Stat Lab 07/25/25 13:56 Completed Magnesium Stat Lab 07/25/25 13:56 Completed Partial Thromboplastin Time Stat Lab 07/25/25 13:56 Completed Prothrombin Time with INR Stat Lab 07/25/25 13:56 Completed Troponin I Stat Lab 07/25/25 13:56 Completed Urinalysis, C/S if Indicated Stat Lab 07/25/25 13:35 Completed Vital Signs Vital signs: Vital Signs Temperature 97.4 F 07/25/25 12:57 Pulse Rate 70 07/25/25 12:57 Respiratory Rate 18 07/25/25 12:57 Blood Pressure 125/73 07/25/25 12:57 Pulse Oximetry (%) 96 07/25/25 12:57 Oxygen Delivery Method Nasal Cannula 07/25/25 12:57 Oxygen Flow Rate 4 07/25/25 12:57 Discharge Plan Plan Patient Disposition: HOME (Self Care) Patient condition on transfer: Stable Prescriptions/Referrals Prescriptions/Med Rec: No Action alprazolam [Xanax] 1 MG tablet 1 mg PO BID PRN (Reason: Anxiety) Qty: 0 carvedilol 25 mg tablet 25 mg PO BID alendronate 70 mg tablet 70 mg PO QWEEK montelukast 10 mg tablet 10 mg PO QDAY loratadine 10 mg tablet 10 mg PO QDAY Spiriva with HandiHaler 18 mcg capsule, w/inhalation device 1 cap INHALATION QDAY calcium carbonate-vitamin D3 600 mg(1,500mg) -400 unit tablet 1 tab PO QDAY budesonide-formoterol [Symbicort] 160-4.5 mcg/actuation HFA aerosol inhaler 2 puff INHALATION BID pantoprazole [Protonix] 40 mg tablet,delayed release (DR/EC) 40 mg PO QDAY Qty: 30 0RF prednisone 50 mg tablet 50 mg PO QDAY Qty: 7 0RF Proair Digihaler 90 mcg/actuation aero powdr breath act w/sensor 2 inh inhalation QID PRN (Reason: shortness of breath or wheezing) Qty: 1 0RF Ref[facility]: [facility] Cornell[facility]MD [Primary Care Provider, Family Practice] - In 1 week Problem List Clinical Impression: Weakness Patient/Caregiver Discharge Instructions Other Activity Instructions:: Hold off on the Xanax. Follow-up with your primary care doctor. If there is a worsening of symptoms in spite of this intervention return to the emergency room meetly for further evaluation. Education Materials: ED Weakness (Uncertain Cause) Print Language: Zimbabwean Stand Alone Forms: Source Audio Award Info., Patient Portal Info Letter PA/RIG MANAGER Supervising Physician PA/RIG MANAGER Supervising Physician: Eliezer Bond ENP [facility] Clinical Information Provided by: patient and EMS [facility] and [facility] Meds/Rx considered, not ordered None Labs/Rad/Tests considered, not ordered None Chronic Illness/Social Conditions which may negatively complicate care or outcome(s)-explain: COPD EKG Interpretation EKG #1: EKG Interpretation: EKG performed at 1320 shows a ventricular rate of 72 IA interval 294 QRS of 93 QTc of 413 sinus rhythm first-degree block. Labs Labs: interpreted by ms Lab(s) Interpretation(s): CBC shows no acute leukocytosis anemia or thrombocytopenia Coags within acceptable notes Sodium of 147 CO2 of 37.7 gap of 8 BUN of 8 glucose of 120 no other electrolyte imbalances renal impairment transaminitis or T. bili elevation Troponin is negative BNP is 309. Urine shows 1+ protein no other acute finding UDS shows patient is benzo positive.. Imaging Imaging interpretation: interpreted by ms Imaging Interpretation(s): Mild to moderate vascular congestion.
[2025-07-25 13:32] VITALS: TEMP 36.6
[2025-07-25 13:41] LABS: Collection Type, Urine Clean Catch
--- NOTE | 2025-07-25 13:48 | PC.NURSE ---
XRAY AT BEDSIDE OBTAINING IMAGES.
--- NOTE | 2025-07-25 14:06 | PC.NURSE ---
PT LISY RODRIGUEZ CELL#[phone]. STATES IF POSSIBLE TO CALL WHEN WE HAVE ANY UPDATES
[2025-07-25 14:18] LABS: Basophils # (Auto) 0.1 Thou/mm3 (0.0-0.2); Basophils % (Auto) 1 % (0-2.5); Eosinophils # (Auto) 0.1 Thou/mm3 (0.0-0.5); Eosinophils % (Auto) 1 % (0-10); Hematocrit 36.3 % (36.0-46.0); Hemoglobin 10.3 g/dL (12.0-16.0); Immature Granulocytes Auto 0.04 Thou/mm3 (0.00-0.00); Lymphocytes # (Auto) 0.6 Thou/mm3 (1.0-4.8); Lymphocytes % (Auto) 7 % (10-50); Mean Corpuscular HGB Conc 28.4 g/dl (31.0-37.0); Mean Corpuscular Hemoglobin 24.9 pg (25.0-35.0); Mean Corpuscular Volume 88 fL (80-100); Monocytes # (Auto) 0.9 Thou/mm3 (0.0-0.8); Monocytes % (Auto) 10 % (0-12); Neutrophils # (Auto) 7.8 Thou/mm3 (1.8-7.7); Neutrophils % (Auto) 82 % (37-80); Nucleated Red Blood Cell # 0.00 Thou/mm3 (0.00-0.00); Nucleated Red Blood Cell % 0 /100 WBC (0); Platelet Count 363 Thou/mm3 (140-440); RDW Standard Deviation 48.3 fL (36.4-46.3); Red Blood Count 4.13 Miln/mm3 (4.00-5.20); White Blood Count 9.6 Thou/mm3 (3.6-11.0)
[2025-07-25 14:29] LABS: Bilirubin,Urine Negative (Negative); Blood,Urine Trace (Negative); Clarity,Urine Clear (Clear/Hazy); Color,Urine Yellow (Lt Yel-Yel); Culture Indicated,Urine Not Indicated; Glucose, Urine Negative (Negative); Ketones,Urine Trace (Negative); Leukocyte Esterase,Urine Negative (Negative); Nitrite,Urine Negative (Negative); PH,Urine 5.5 (5.0-7.0); Protein,Urine 1+ (Neg - Trace); RBC,Urine 2 /hpf (0-3); Specific Gravity,Urine 1.022 (1.001-1.035); Squamous Epithelial Cell,Urine < 1 /hpf (0-5); Urobilinogen,Urine 2.0 mg/dL (0.0-1.0); WBC,Urine 1 /hpf (0-5)
[2025-07-25 14:33] LABS: INR 1.1 (0.9-1.3); Partial Thromboplastin Time 27.2 Seconds (22.0-36.0); Prothrombin Time 11.5 Seconds (9.0-12.2)
[2025-07-25 14:38] LABS: Alanine Aminotransferase < 7 U/L (10-49); Albumin, Serum 3.6 gm/dL (3.4-4.8); Albumin/Globulin Ratio 1.3 (1.2-2.2); Alkaline Phosphatase 93 U/L (46-116); Anion Gap 8 (7-16); Aspartate Amino Transferase 15 U/L (0-34); BUN/Creatinine Ratio 11 Ratio (12-20); Bilirubin,Total 0.3 mg/dL (0.3-1.2); Blood Urea Nitrogen 8 mg/dL (9-23); Calcium 9.8 mg/dL (8.3-10.6); Calcium (Corrected) 10.1 mg/dL (8.5-10.1); Carbon Dioxide 37.9 mMol/L (20.0-31.0); Chloride 101 mMol/L (98-107); Creatinine (Component) 0.7 mg/dL (0.6-1.3); Globulin 2.8 gm/dL (2.3-3.5); Glucose 120 mg/dL (74-106); LDH (Lactate Dehydrogenase) 178 U/L (120-246); Magnesium 2.1 mg/dL (1.6-2.6); Osmolality,Calculated 291 (275-295); Potassium 4.2 mMol/L (3.4-5.1); Sodium 147 mMol/L (136-145); Total Protein 6.4 gm/dL (5.7-8.2); Troponin I < 0.020 ng/mL (0.0-0.045); eGFR > 60 See Note
[2025-07-25 14:42] LABS: B-Type Natriuretic Peptide 309 pg/mL (0-100)
[2025-07-25 14:45] LABS: Amphetamine/Methamp Scrn,U Negative (Negative); Barbiturate Screen,Urine Negative (Negative); Benzodiazepines Screen,Urine Positive (Negative); Benzoylecgonine Screen, Ur Negative (Negative); Fentanyl Screen,Urine Negative (Negative); Opiate Screen,Urine Negative (Negative); THC Screen,Urine Negative (Negative)
[2025-07-25 15:25] VITALS: BP 123/56; PULSE 69; RESP 19; TEMP 36.9; O2SAT 95
[2025-07-25 17:06] VITALS: BP 121/60; PULSE 64; RESP 20; O2SAT 97
== END 2025-07-25 17:07 | disposition home or self-care (01) ==
PROVIDERS: Registered Nurse General Practice; Emergency Provider Emergency Medicine; PCP Family Medicine
DX: R53.1 Weakness (principal); R09.89 Other specified symptoms and signs involving the circulatory and respiratory systems; I44.0 Atrioventricular block, first degree; I10 Essential (primary) hypertension
CPT/HCPCS: 36415; 51701; 71045; 80053; 80307; 81001; 83615; 83735; 83880; 84484; 85025; 85610; 85730; 93005; 99283

== ENCOUNTER 2025-07-28 13:05 | Inpatient (IN) | payer MEDICARE, MEDICAID, SELFPAY ==
[2025-07-28] VITALS (9 sets, daily range): BP systolic 108–143; BP diastolic 47–66; PULSE 76–104; RESP 16–18; TEMP 36.9–38.3; O2SAT 86–100; BMI 17.9
--- NOTE | 2025-07-28 13:07 | EKG_ITS ---
[facility] Test Date: 2025-07-28 Pat Name: SUELLEN OLIVAS Department: Room: - Gender: Female Roofer Apprentice: : 1935 Requested By: Eliezer Arriola Order Number: [id number] Reading MD: Eliezer Arriola Measurements Intervals [place] Rate: 88 P: 85 FL: 305 QRS: 33 QRSD: 87 T: 39 QT: 341 QTc: 414 Interpretive Statements SINUS RHYTHM WITH FIRST DEGREE AV BLOCK WITH FREQUENT SUPRAVENTRICULAR PREMATURE COMPLEXES PROBABLE INFERIOR MYOCARDIAL INFARCTION , PROBABLY OLD [35 ms Q WAVE IN II/aVF] Compared to ECG 07/25/2025 13:20:07 No significant changes /store/S0/[id number].pdf
--- NOTE | 2025-07-28 14:21 | EDNOTE_ITS ---
ED General RME/HPI General Chief complaint: Nausea/Vomiting/Diarrhea Stated complaint: DIARRHEA Time Seen by Provider: 07/28/25 13:07 Arrival date/time: 07/28/25 13:05 CC: Weakness and diarrhea HPI patient has had diarrhea for 1 week was seen by her son who is checking in on her. Patient lives by herself, patient requires oxygen for COPD. EMS reports mildly tachycardic. Also report that the patient recently finished antibiotics for pneumonia. Patient is awake alert somewhat slow and responding to questions. But answering all questions appropriately. Has no physical pain including chest pain. Related Data Home Medications ?Medication ?Instructions ?Recorded ?Confirmed alprazolam 1 mg tablet (Xanax) 1 mg PO BID PRN Anxiety ##0 03/06/13 07/02/21 alendronate 70 mg tablet 70 mg PO QWEEK 07/02/2104/14 budesonide-formoterol HFA 160 2 puff inhalation BID 07/02/21 mcg-4.5 mcg/actuation aerosol inhaler (Symbicort) calcium 600 mg (as 1 tab PO QDAY 07/02/2107/02 carbonate)-vitamin D3 10 mcg (400 unit) tablet carvedilol 25 mg tablet 25 mg PO BID 07/02/21 loratadine 10 mg tablet 10 mg PO QDAY 07/02/2107/02 montelukast 10 mg tablet 10 mg PO QDAY 07/02/2107/02 tiotropium bromide 18 mcg capsule 1 cap inhalation QDA Y 07/02/21 07/02/21 with inhalation device (Spiriva with HandiHaler) Previous Rx's ?Medication ?Instructions ?Recorded pantoprazole 40 mg tablet,delayed 40 mg PO QDAY #30 ta bs 07/25/23 release (Protonix) albuterol sulfate 90 mcg/actuation 2 inh inhalation QI D PRN shortness 07/15/24 breath activated powder of breath or wheezing #1 ea inhaler,sensor (Proair Digihaler) prednisone 50 mg tablet 50 mg PO QDAY #7 tabs Allergies Allergy/AdvReac Type Severity Reaction Status Date / Time codeine Allergy Mild Vomiting Verified 07/28/25 13:14 Review of Systems Review of Systems Narrative Review of Systems: GEN: No fever, no chills, no weight loss EYES: No discharge, no visual changes, no pain HEENT: No ear pain, no congestion, no sore throat PULM: No shortness of breath, no cough, no congestion CV: No chest pain, no dyspnea on exertion, no palpitations GI: No nausea, no vomiting, + diarrhea, no pain, no constipation : No frequency, no urgency, no dysuria MUSC/SKEL: No joint pain, no back pain SKIN: No rash PSYCH: No hallucinations, no depression HEME/LYMPH: No easy bleeding or bruising tendencies NEURO: No weakness, no headache Past Medical History Past Medical History CARDIAC: Positive Hypertension; Negative Cardiac Disorders or Congestive Heart Failure RESPIRATORY: Positive Asthma; Negative Chronic Obstructive Pulmonary Disease (COPD) GENITOURINARY: Negative Renal Disease ENDOCRINE: Negative Diabetes Mellitus Type 1 or Diabetes Mellitus Type 2 HEMATOLOGIC: Negative Sickle Cell Disease Social History SMOKING STATUS: Current some day smoker SECOND HAND EXPOSURE: Yes ED Exam Narrative Physical exam: [General: Thin but not emaciated not in any acute distress Head normocephalic HEENT: Eyes pupils are PERRLA EOMs are intact mouth is pink and dry swallow symmetrical phonation is normal. All other subsystems of HEENT are within acceptable limits Neck is supple nontender no JVD no LAD no edema Chest equal chest rise nontender to palpation Respiratory: Clear to auscultation no wheezes crackles or rubs CV: Rate rhythm is regular no murmurs rubs or clicks Abdomen is soft nontender no masses positive bowel sounds all 4 quadrants Back: No CVA tenderness no spinous process tenderness from cervical spine thoracic and lumbar spine Skin: Intact no petechiae rash induration ulceration or crepitus Extremities: Moving all extremity against resistance cap refill less than 2 seconds neurosensory intact Neuro: Awake alert oriented x2, person and place, Glascow coma 15 no focal deficits] Course Course Course Narrative: Patient's case clinical findings laboratory results and imaging discussed with resident for Dr. Chong, who is requesting an additional liter LR. 2226 I was informed the patient will be admitted for dehydration diarrhea Quality Measures none Orders Category Date Time Status COVID-19 Screening Questionnaire NOW Care 07/28/25 22:08 Active Golf Cart Assembler STAT Care 07/28/25 16:34 Active Continuous Pulse Oximetry STAT Care 07/28/25 16:34 Completed Decision to Admit X1 Care 07/28/25 22:08 Active EKG (ED ONLY) *Do not use* NOW Care 07/28/25 13:07 Completed Brower [Urinary Catheter] QS Care 07/28/25 20:23 Active In and Out Catheter X1PRN Care 07/28/25 16:34 Completed Insert IV NOW Care 07/28/25 16:34 Active NPO STAT Care 07/28/25 16:34 Active Strict Intake and Output Routine Care 07/28/25 16:[address] chest abdomen pelvis wo Stat Exams 07/28/25 16:35 Completed EKG (ED Only) Stat Exams 07/28/25 13:07 Draft B-Type Natriuretic Peptide Stat Lab 07/28/25 14:50 Completed Blood Culture (Lab) Stat Lab 07/28/25 17:00 Received CBC Stat Lab 07/28/25 14:50 Completed Comprehensive Metabolic Panel Stat Lab 07/28/25 14:50 Completed Drug Screen,Urine Stat Lab 07/28/25 16:20 Completed LDH (Lactate Dehydrogenase) Stat Lab 07/28/25 16:55 Completed Lactate (Lactic Acid) Stat Lab 07/28/25 16:55 Completed Lipase Stat Lab 07/28/25 14:50 Completed Magnesium Stat Lab 07/28/25 14:50 Completed Magnesium Stat Lab 07/28/25 16:55 Completed Partial Thromboplastin Time Stat Lab 07/28/25 14:50 Completed Phosphorous Stat Lab 07/28/25 16:55 Completed Procalcitonin Stat Lab 07/28/25 16:55 Completed Prothrombin Time with INR Stat Lab 07/28/25 14:50 Completed Troponin I Stat Lab 07/28/25 16:55 Completed Urinalysis, C/S if Indicated Stat Lab 07/28/25 16:20 Completed c diff [Clostridium Difficile PCR] Stat Lab 07/28/25 16:20 Received Acetaminophen Ivpb [Ofirmev Inj] 60 ml Med 07/28/25 16:45 Discontinued IV X1 POTASSIUM CHL 10 mEq IVPB [Kcl Ivpb] Med 07/28/25 21:08 Active 10 meq in 100 ml IV Q1H Ringers Lactated 1000 ml [Lactated Ringers] 1,000 ml Med 07/28/25 15:25 Discontinued IV 999 mls/hr Ringers Lactated 1000 ml [Lactated Ringers] 1,000 ml Med 07/28/25 22:07 Active IV 999 mls/hr Ringers Lactated 500 ml [Lactated Ringers] 500 ml Med 07/28/25 16:35 Discontinued IV 999 mls/hr Sodium Chloride 0.9% 1000 ml [Ns] 1,000 ml Med 07/28/25 16:41 Active IV 85 mls/hr Oxygen Delivery NOW RT 07/28/25 16:34 Active Vital Signs Vital signs: Vital Signs Temperature 99.8 F 07/28/25 13:06 Pulse Rate 93 07/28/25 13:06 Respiratory Rate 16 07/28/25 13:06 Blood Pressure 117/66 07/28/25 13:06 Pulse Oximetry (%) 91 L 07/28/25 13:06 Discharge Plan Plan Patient Disposition: Other Care w/in Hosp (SDC/FRACISCO) Patient condition on transfer: Stable Prescriptions/Referrals Prescriptions/Med Rec: No Action alprazolam [Xanax] 1 MG tablet 1 mg PO BID PRN (Reason: Anxiety) Qty: 0 carvedilol 25 mg tablet 25 mg PO BID alendronate 70 mg tablet 70 mg PO QWEEK montelukast 10 mg tablet 10 mg PO QDAY loratadine 10 mg tablet 10 mg PO QDAY Spiriva with HandiHaler 18 mcg capsule, w/inhalation device 1 cap INHALATION QDAY calcium carbonate-vitamin D3 600 mg(1,500mg) -400 unit tablet 1 tab PO QDAY budesonide-formoterol [Symbicort] 160-4.5 mcg/actuation HFA aerosol inhaler 2 puff INHALATION BID pantoprazole [Protonix] 40 mg tablet,delayed release (DR/EC) 40 mg PO QDAY Qty: 30 0RF prednisone 50 mg tablet 50 mg PO QDAY Qty: 7 0RF Proair Digihaler 90 mcg/actuation aero powdr breath act w/sensor 2 inh inhalation QID PRN (Reason: shortness of breath or wheezing) Qty: 1 0RF Referrals: No Primary/Family,Physician [Primary Care Provider] - In 1 week Problem List Clinical Impression: Diarrhea, Leukocytosis, Dehydration Patient/Caregiver Discharge Instructions Print Language: Macedonian Stand Alone Forms: Karen Award Info., Patient Portal Info Letter PA/PRIMARY CARE PHYSICIAN Supervising Physician PA/PRIMARY CARE PHYSICIAN Supervising Physician: Eliezer Bond ENP [facility] Clinical Information Provided by: patient and EMS [facility] Medical Records additional comments: COPD with supplemental oxygen hypertension. Meds/Rx considered, not ordered None Labs/Rad/Tests considered, not ordered None Chronic Illness/Social Conditions Explain: COPD EKG Interpretation EKG #1: EKG Interpretation: EKG performed at 1345 shows a ventricular rate of 88 FL interval 305 QRS of 8 7 QTc of 387 this is sinus rhythm first-degree block poor quality EKG with significant artifact in most leads. Labs Labs: interpreted by me Lab(s) Interpretation(s): CBC shows leukocytosis of 18.68 hemoglobin of 10.5 platelets of 375 Coags within acceptable limits CMP shows sodium 148 potassium 3.2 glucose of 114 phosphorus of 2.2 no transaminitis T. bili is normal. LDH 294 troponin is 0.026 BNP 295. Pro-Darrel 068. Urine shows 1+ protein 1+ ketones yeast is present. UDS is positive for benzos. Imaging Imaging interpretation: interpreted by me Medication Administration(s) Medication Administration History Sodium Chloride (Ns) 1,000 mls @ 85 mls/hr IV .[id number] TANNER Stop: 08/27/25 16:40 Last Admin: 07/28/25 17:34 Dose: 85 mls/hr Documented By: MIGUEL Potassium Chloride (Kcl Ivpb) 10 meq in 100 mls @ 100 mls/hr IV Q1H TANNER Stop: 07/29/25 01:07 Last Admin: 07/28/25 21:51 Dose: 100 mls/hr Documented By: MIGUEL Lactated Ringer's (Lactated Ringers) 1,000 mls @ 999 mls/hr IV .Q1H1M ONE Stop: 07/28/25 23:07 Discontinued Medications Lactated Ringer's (Lactated Ringers) 1,000 mls @ 999 mls/hr IV .Q1H1M ONE Stop: 07/28/25 16:25 Last Infusion: 07/28/25 17:15 Dose: Infused Documented By: Admin: 07/28/25 15:30 Dose: 999 mls/hr Documented By: MIGUEL Acetaminophen (Ofirmev Inj) 60 mls @ 180 mls/hr IV X1 ONE Stop: 07/28/25 17:04 Last Infusion: 07/28/25 17:49 Dose: Infused Documented By: Admin: 07/28/25 17:29 Dose: 180 mls/hr Documented By: MIGUEL Lactated Ringer's (Lactated Ringers) 500 mls @ 999 mls/hr IV .Q31M ONE Stop: 07/28/25 17:05 Last Infusion: 07/28/25 17:33 Dose: Infused Documented By: Admin: 07/28/25 16:45 Dose: 999 mls/hr Documented By: MIGUEL
[2025-07-28 15:19] LABS: Basophils # (Auto) 0.1 Thou/mm3 (0.0-0.2); Basophils % (Auto) 0 % (0-2.5); Eosinophils # (Auto) 0.0 Thou/mm3 (0.0-0.5); Eosinophils % (Auto) 0 % (0-10); Hematocrit 36.3 % (36.0-46.0); Hemoglobin 10.5 g/dL (12.0-16.0); Immature Granulocytes Auto 0.10 Thou/mm3 (0.00-0.00); Lymphocytes # (Auto) 0.4 Thou/mm3 (1.0-4.8); Lymphocytes % (Auto) 2 % (10-50); Mean Corpuscular HGB Conc 28.9 g/dl (31.0-37.0); Mean Corpuscular Hemoglobin 24.8 pg (25.0-35.0); Mean Corpuscular Volume 86 fL (80-100); Monocytes # (Auto) 1.3 Thou/mm3 (0.0-0.8); Monocytes % (Auto) 7 % (0-12); Neutrophils # (Auto) 16.7 Thou/mm3 (1.8-7.7); Neutrophils % (Auto) 90 % (37-80); Nucleated Red Blood Cell # 0.00 Thou/mm3 (0.00-0.00); Nucleated Red Blood Cell % 0 /100 WBC (0); Platelet Count 375 Thou/mm3 (140-440); RDW Standard Deviation 47.8 fL (36.4-46.3); Red Blood Count 4.24 Miln/mm3 (4.00-5.20); White Blood Count 18.6 Thou/mm3 (3.6-11.0)
[2025-07-28] MEDS: RINGERS LACTATED 1000 ML 1,000 ML 999 ML IV (15:30)
[2025-07-28 15:48] LABS: B-Type Natriuretic Peptide 295 pg/mL (0-100)
[2025-07-28 15:55] LABS: INR 1.1 (0.9-1.3); Partial Thromboplastin Time 28.7 Seconds (22.0-36.0); Prothrombin Time 12.0 Seconds (9.0-12.2)
[2025-07-28 16:07] LABS: Alanine Aminotransferase < 7 U/L (10-49); Albumin, Serum 3.6 gm/dL (3.4-4.8); Albumin/Globulin Ratio 1.3 (1.2-2.2); Alkaline Phosphatase 91 U/L (46-116); Anion Gap 8 (7-16); Aspartate Amino Transferase 17 U/L (0-34); BUN/Creatinine Ratio 14 Ratio (12-20); Bilirubin,Total 0.4 mg/dL (0.3-1.2); Blood Urea Nitrogen 11 mg/dL (9-23); Calcium 9.3 mg/dL (8.3-10.6); Calcium (Corrected) 9.6 mg/dL (8.5-10.1); Carbon Dioxide 39.5 mMol/L (20.0-31.0); Chloride 101 mMol/L (98-107); Creatinine (Component) 0.8 mg/dL (0.6-1.3); Estimated Creatinine Clearance 31.0 mL/min (>60); Globulin 2.8 gm/dL (2.3-3.5); Glucose 114 mg/dL (74-106); Lipase 19 U/L (12-53); Magnesium 1.8 mg/dL (1.6-2.6); Osmolality,Calculated 294 (275-295); Potassium 3.2 mMol/L (3.4-5.1); Sodium 148 mMol/L (136-145); Total Protein 6.4 gm/dL (5.7-8.2); eGFR > 60 See Note
[2025-07-28 16:27] LABS: Collection Type, Urine Clean Catch
--- NOTE | 2025-07-28 16:35 | XR_ITS ---
Examination: CT chest, without intravenous contrast. CT abdomen, without intravenous contrast. CT pelvis, without intravenous contrast. 2-D sagittal and coronal reconstructions. 3-D reconstructions. Date and time of exam: July 28, 2025, 1928 hours, comparison July 13, 2025 INDICATIONS: Sepsis alert fever today CTDI vol (mgy) 6.50 DLP (MGycm) 441 Technique: Multiple CT images, 3.0 mm slice thickness, obtained chest, abdomen, pelvis, with the high-resolution 64 slice scanner.. Sagittal and coronal 2-D reconstructions are obtained. 3-D reconstructions Low dose protocols were performed. One or more of the following dose reduction techniques were used; automated exposure control, adjustment of the mA and/or KV according to patient size, use of iterative reconstruction technique. Findings: AP thoracic aortic calcification no aneurysmal dilatation No mediastinal lymphadenopathy Interstitial parenchymal disease throughout the lungs 22 mm dense consolidation versus pulmonary mass in the posterior superior segment left lower lobe Mild to moderate right and mild left pleural effusions Liver is irregular in contour, no liver lesions Gallbladder wall appears mildly thickened Spleen is not enlarged No pancreatic mass No renal or ureteral calculi Dense abdominal aortic calcification No bowel obstruction or diverticulitis 29 mm right ovarian hypodense mass Atrophic uterus Urinary bladder intact Fluid-filled rectum No pericecal inflammatory change Severe osteopenia, 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
[2025-07-28] MEDS: RINGERS LACTATED 500 ML 500 ML 999 ML IV (16:45)
[2025-07-28 16:57] LABS: Amphetamine/Methamp Scrn,U Negative (Negative); Barbiturate Screen,Urine Negative (Negative); Benzodiazepines Screen,Urine Positive (Negative); Benzoylecgonine Screen, Ur Negative (Negative); Fentanyl Screen,Urine Negative (Negative); Opiate Screen,Urine Negative (Negative); THC Screen,Urine Negative (Negative)
[2025-07-28 16:59] LABS: Bacteria,Urine Rare; Bilirubin,Urine Negative (Negative); Blood,Urine Trace (Negative); Budding Yeast,Urine Present; Clarity,Urine Clear (Clear/Hazy); Color,Urine Yellow (Lt Yel-Yel); Culture Indicated,Urine Not Indicated; Glucose, Urine Negative (Negative); Ketones,Urine 1+ (Negative); Leukocyte Esterase,Urine Negative (Negative); Nitrite,Urine Negative (Negative); PH,Urine 6.0 (5.0-7.0); Protein,Urine 1+ (Neg - Trace); RBC,Urine 1 /hpf (0-3); Specific Gravity,Urine 1.024 (1.001-1.035); Squamous Epithelial Cell,Urine < 1 /hpf (0-5); Urobilinogen,Urine 2.0 mg/dL (0.0-1.0); WBC,Urine 1 /hpf (0-5)
[2025-07-28 17:15] LABS: Lactate (Lactic Acid) 1.8 mMol/L (0.4-2.0)
[2025-07-28] MEDS: SODIUM CHLORIDE 0.9% 1000 ML 1,000 ML 85 ML IV (17:34)
[2025-07-28 17:53] LABS: LDH (Lactate Dehydrogenase) 294 U/L (120-246); Magnesium 1.7 mg/dL (1.6-2.6); Phosphorous 2.2 mg/dL (2.4-5.1); Procalcitonin 0.68 ng/ml (0.0-0.49); Troponin I 0.026 ng/mL (0.0-0.045)
--- NOTE | 2025-07-28 20:44 | PC.NURSE ---
Patient's son Gregory called for updates regarding patient and inquiring if patient was going to be admitted to the hospital. This Nurse informed gregory that as of now patient has not been admitted to the hospital but a message will be given to patient's Nurse to call Gregory if patient will be admitted.
[2025-07-28] MEDS: POTASSIUM CHL 10 mEq IVPB 10 MEQ/100 ML BAG 100 MEQ IV ×2 (21:51→22:55)
--- NOTE | 2025-07-28 22:19 | ESHP_ITS ---
<Statement entered by Barron Santa MD - 08/02/25 02:32> I have personally seen and examined the patient, agree with residents assessment and plan Patient plan of care was discussed with the attending physician, Dr. 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 Patient was admitted for management of gastroenteritis with C. difficile rule out. According to patient, this diarrhea has been ongoing for about a week. She does not know how many episodes of diarrhea she has in a day however, the patient states that she is having watery diarrhea all throughout the day. Per nursing staff in the ED, the patient had 4 moderate watery bowel movements since the patient was in the ED from early afternoon, with a fifth bowel movement right before the patient's admission to medical floors. According to the patient, she recently completed a weeklong course of oral antibiotics, though she does not sure what she took. Per outside records, the patient was prescribed a weeklong course of Augmentin and 5-day course of azithromycin that was filled on 07/19/2025. The patient denies any febrile episodes at home, however the patient was noted to have a fever of 101 ?F in the ED and was noted to have abdominal pain in the suprapubic and left upper and lower abdominal quadrants. Patient denies chills, headaches, chest pain, shortness of breath, dysuria, and polyuria. ED course: Initial vitals were significant for O2 saturation of 91%. Patient did have temperature of 101 ?F at 16:20. Initial labs significant for WBC 18.6, hemoglobin 10.5, sodium 148, potassium 3.2, bicarb 39.5, phosphorus 2.2, BNP 295, and procalcitonin 0.68. Urine toxicology positive for benzodiazepines. CT chest/abdomen/pelvis positive for diffuse bilateral pneumonia, submillimeter dense consolidation versus pulmonary mass in posterior superior segment left lower lobe, moderate pleural effusions, cirrhosis versus primary palisading disease, gallbladder wall thickening, and 30 mm hypodense right ovarian mass. Patient received 1.5 L of LR and started on potassium repletion. Past Surgical History: Patient denies Current Medication(s): Patient takes blood pressure medication and medication for her breathing, but is not sure what those medications are. Allergies (w/ Reactions): NKDA, codeine per chart review Family History: Noncontributory Alcohol Intake: Patient denies Tobacco/Vape Use: Patient smokes maybe 1 cigarette every other day since she was 41 years old Other Drug Use: Patient denies Recent Travel History: Patient denies Recent Sick Contacts: Patient denies Exam Vital Signs Temp Pulse Resp BP Pulse Ox O2 Del Method O2 Flow Rate 98.6 F 76 17 108/66 99 Nasal Cannula 2 07/28/25 20:30 07/28/25 20:30 07/28/25 20:30 07/28/25 20:30 07/28/25 20:30 07/28/25 20:30 07/28/25 20:30 Narrative Exam Physical Exam: General: Alert, no acute distress. Slow to respond. Skin: Warm, dry, intact. Head: Normocephalic, atraumatic. Eye: Normal conjunctiva, PERRL. Throat: Oral mucosa dry. No obvious lesions in oropharynx. Cardiovascular: Regular rate and rhythm, no murmur, +S1/S2. Respiratory: Lungs are clear to auscultation, respirations unlabored, no crackles, no wheezing. Gastrointestinal: Soft, non-distended. Tenderness to light palpation in suprapubic region, LUQ, and LLQ. No guarding or rebound tenderness. Extremities: No edema, no cyanosis, no clubbing. 2+ radial pulse bilaterally, 2+ pedal pulse bilaterally. Neuro: No focal deficits observed. Conversant, moving all extremities. No overt cerebellar signs/incoordination. Psychiatric: Cooperative, flat affect. Results: Labs 07/30/25 05:25 07/30/25 05:25 Labs: Short CBC 07/28/25 Range/Units 14:50 WBC 18.6 H D (3.6-11.0) Thou/mm3 Hgb 10.5 L (12.0-16.0) g/dL Hct 36.3 (36.0-46.0) % Plt Count 375 (140-440) Thou/mm3 BMP 07/28/25 14:50 Sodium 148 H Potassium 3.2 L Chloride 101 Carbon Dioxide 39.5 H BUN 11 Creatinine 0.8 Glucose 114 H Calcium 9.3 Cardiac Enzymes 07/28/25 Range/Units 16:55 Troponin I 0.026 (0.0-0.045) ng/mL Liver Function 07/28/25 Range/Units 14:50 Total Bilirubin 0.4 (0.3-1.2) mg/dL AST 17 (0-34) U/L ALT < 7 L (10-49) U/L Alkaline Phosphatase 91 (46-116) U/L Albumin 3.6 (3.4-4.8) gm/dL Urine 07/28/25 Range/Units 16:20 Urine Color Yellow (Lt Yel-Yel) Urine Clarity Clear (Clear/Hazy) Urine pH 6.0 (5.0-7.0) Ur Specific [place] 1.024 (1.001-1.035) Urine Protein 1+ A (Neg - Trace) Urine Glucose (UA) Negative (Negative) Quality Measures Quality Measures VTE prophylaxis Advance care planning discussed with:: patient Medications Home Medications and Allergies Home Medications ?Medication ?Instructions ?Recorded ?Confirmed ?Type alprazolam 1 mg tablet (Xanax) 1 mg PO BID PRN Anxiety ##0 03/06/13 07/02/21 History alendronate 70 mg tablet 70 mg PO QWEEK 07/02/2104/14 History budesonide-formoterol HFA 160 2 puff inhalation BID 07/02/21 History mcg-4.5 mcg/actuation aerosol inhaler (Symbicort) calcium 600 mg (as 1 tab PO QDAY 07/02/2107/02 History carbonate)-vitamin D3 10 mcg (400 unit) tablet carvedilol 25 mg tablet 25 mg PO BID 07/02/21 History loratadine 10 mg tablet 10 mg PO QDAY 07/02/2107/02 History montelukast 10 mg tablet 10 mg PO QDAY 07/02/2107/02 History tiotropium bromide 18 mcg capsule 1 cap inhalation QDA Y 07/02/21 07/02/21 History with inhalation device (Spiriva with HandiHaler) Allergies Allergy/AdvReac Type Severity Reaction Status Date / Time codeine Allergy Mild Vomiting Verified 07/28/25 13:14 Visit Medications Sodium Chloride (Ns) 1,000 mls @ 85 mls/hr IV .[id number] TANNER Stop: 08/27/25 16:40 Last Admin: 07/28/25 17:34 Dose: 85 mls/hr Potassium Chloride (Kcl Ivpb) 10 meq in 100 mls @ 100 mls/hr IV Q1H TANNER Stop: 07/29/25 01:07 Last Admin: 07/28/25 21:51 Dose: 100 mls/hr Lactated Ringer's (Lactated Ringers) 1,000 mls @ 999 mls/hr IV .Q1H1M ONE Stop: 07/28/25 23:07 Discontinued Medications Lactated Ringer's (Lactated Ringers) 1,000 mls @ 999 mls/hr IV .Q1H1M ONE Stop: 07/28/25 16:25 Last Infusion: 07/28/25 17:15 Dose: Infused Acetaminophen (Ofirmev Inj) 60 mls @ 180 mls/hr IV X1 ONE Stop: 07/28/25 17:04 Last Infusion: 07/28/25 17:49 Dose: Infused Lactated Ringer's (Lactated Ringers) 500 mls @ 999 mls/hr IV .Q31M ONE Stop: 07/28/25 17:05 Last Infusion: 07/28/25 17:33 Dose: Infused Assessment & Plan Plan This patient is an 89-year-old female with a history of COPD (2 L O2 at night) and hypertension who presented to [facility] ED on 07/28 for frequent watery diarrhea. Patient was admitted for management of gastroenteritis with C. difficile rule out. #Acute diarrhea #C. difficile? #Gastroenteritis #Leukocytosis DDx: C. difficile, bacterial gastroenteritis, viral gastroenteritis, drug- induced gastroenteritis, Giardia Patient complaining of weeklong diarrhea last throughout the day. Noted to be watery, moderate volume, and foul-smelling per ED nursing staff. Patient is unsure how many bowel movements she has daily, however patient did have 5 watery bowel movements in ED from early afternoon prior to admission on 07/28 in the evening. Diarrhea does coincide with the patient starting a weeklong course of Augmentin and azithromycin for pneumonia, to which the patient has completed. Diagnostic: Patient noted to have fever of 101 ?F in ED WBC 18.6 and procalcitonin 0.68 in ED, lactic acid within normal limits in ED Treatment: Will hold off on antibiotics for now as patient has not had any episodes of fever at home and only 1 febrile episode in the ED, low threshold to start antibiotics C. difficile PCR ordered, pending Stool studies ordered, pending Stool calprotectin and WBC ordered, pending Blood cultures collected 07/28, pending #Electrolyte abnormalities #Hypernatremia #Hypokalemia #Metabolic alkalosis Diagnostic: Sodium 148, potassium 3.2, and bicarb 39.5 in ED Hypernatremia likely secondary to dehydration from diarrhea Hypokalemia possibly chronic condition as patient has been prescribed potassium chloride previously Metabolic alkalosis possibly secondary to calcium carbonate-vitamin D3 that has been prescribed to the patient Treatment: Consider urine chloride to further work up metabolic alkalosis Pending med rec Replete potassium as indicated s/p 2.5 L of IVF given in ED #Pulmonary mass versus consolidation, posterior superior left lower lobe #Bilateral pleural effusions, mild to moderate Patient noted to have pulmonary mass in the posterior superior left lower lobe on CT chest/abdomen/pelvis. Not identified on chest x-ray. Patient has not had any previous imaging of the chest with CT, so unclear of the evolution of this mass. Patient was noted to have pneumonia in the past per the patient and was recently given antibiotics that she completed. Diagnostic: CT chest/abdomen/pelvis on 07/28 shows 22 mm dense consolidation versus pulmonary mass in posterior superior left lower lobe with mild to moderate bilateral pleural effusions Treatment: Patient to follow-up outpatient for monitoring Cocci serology ordered, pending #Thickened gallbladder wall As shown on CT chest/abdomen/pelvis. Low suspicion for acute cholecystitis given lack of right upper quadrant pain. Treatment: Patient to follow-up outpatient #Irregular liver contour Possibly cirrhosis versus primary palisading disease. LFTs within normal limits. Patient denies any history of cirrhosis and denies extensive alcohol history. Treatment: Patient to follow-up outpatient #Right ovarian mass Diagnostic: CT chest/abdomen/pelvis on 07/28 shows 30 mm hypodense right ovarian mass CT abdomen/pelvis on 07/13/2025 shows 37 mm right pelvic cyst Pelvic ultrasound on 07/13/2025 shows solid left ovarian mass measuring 6.7 x 5.5 x 4.9 cm Treatment: CA125 ordered, pending Imaging studies not fully consistent, could consider repeat pelvic ultrasound Patient to follow-up outpatient #Anemia, normocytic Diagnostic: Patient noted to have hemoglobin of 10.5 with MCV of 86 on admission Treatment: Possibly anemia of chronic disease Patient to follow-up outpatient #History of COPD Patient previously diagnosed with COPD, however the patient herself stated that she does not know if she has any official testing done. Per chart review, the patient has been using 2 L of supplemental oxygen at night for at least 10 years. Patient saturating 96 to 98% on 2 L of oxygen in ED, no increased work of breathing noted. Treatment: Duonebs as needed Oxygen via nasal cannula as needed Pending med rec #History of hypertension Patient noted to have a history of hypertension, does take antihypertensive at home, but does not know which medication doses. Treatment: Pending med rec DVT Prophylaxis: Lovenox GI Prophylaxis: N/A Bowel: N/A Diet: Regular Brower: Yes Lines: PIV Antibiotics: N/A Code Status: FULL Reason for Hospitalization: Gastroenteritis w/ C. diff rule out Other Barriers to Discharge: C. diff results Patient plan of care was discussed with the senior resident Dr. Santa (PGY-2) and attending physician Dr. Damon Garcia, PGY1 Attending Provider Attestation/Addendum After examination of the patient and review of the clinical data I feel that this patient needs admission to the hospital for further treatment/evaluation. Plan of care discussed with patient and is in agreement. I Liborio Jose MD, attest that I was physically present for agustin portions of evaluation, and examined patient, labs and imagings and plan of care were discussed with IM residents team, and I agree with the findings and plans documented above.
[2025-07-29] VITALS (9 sets, daily range): BP systolic 115–154; BP diastolic 53–87; PULSE 71–92; RESP 16–26; TEMP 36.2–36.6; O2SAT 87–99; BMI 19.1; BMI 19.0; BMI 13.0
[2025-07-29 00:06] LABS: COVID-19 Antigen (In-House) Negative (Negative)
[2025-07-29] MEDS: POTASSIUM CHL 10 mEq IVPB 10 MEQ/100 ML BAG 100 MEQ IV ×2 (00:20→01:37)
--- NOTE | 2025-07-29 01:01 | PC.NURSE ---
Med rec not completed. ERNIE Hilliard told patient to contact a family member to bring medications to the hospital.
[2025-07-29] MEDS: RINGERS LACTATED 1000 ML 1,000 ML 999 ML IV (02:45)
[2025-07-29] MEDS: SODIUM CHLORIDE 0.9% 1000 ML 1,000 ML 85 ML IV ×2 (05:16→17:56)
[2025-07-29 05:55] LABS: Basophils # (Auto) 0.1 Thou/mm3 (0.0-0.2); Basophils % (Auto) 1 % (0-2.5); Eosinophils # (Auto) 0.1 Thou/mm3 (0.0-0.5); Eosinophils % (Auto) 0 % (0-10); Hematocrit 37.6 % (36.0-46.0); Hemoglobin 10.8 g/dL (12.0-16.0); Immature Granulocytes Auto 0.08 Thou/mm3 (0.00-0.00); Lymphocytes # (Auto) 0.8 Thou/mm3 (1.0-4.8); Lymphocytes % (Auto) 4 % (10-50); Mean Corpuscular HGB Conc 28.7 g/dl (31.0-37.0); Mean Corpuscular Hemoglobin 24.9 pg (25.0-35.0); Mean Corpuscular Volume 87 fL (80-100); Monocytes # (Auto) 0.9 Thou/mm3 (0.0-0.8); Monocytes % (Auto) 5 % (0-12); Neutrophils # (Auto) 15.8 Thou/mm3 (1.8-7.7); Neutrophils % (Auto) 89 % (37-80); Nucleated Red Blood Cell # 0.00 Thou/mm3 (0.00-0.00); Nucleated Red Blood Cell % 0 /100 WBC (0); Platelet Count 350 Thou/mm3 (140-440); RDW Standard Deviation 49.0 fL (36.4-46.3); Red Blood Count 4.34 Miln/mm3 (4.00-5.20); White Blood Count 17.7 Thou/mm3 (3.6-11.0)
[2025-07-29 06:29] LABS: CA 125 41.0 U/mL (<30.2)
[2025-07-29 06:32] LABS: Alanine Aminotransferase < 7 U/L (10-49); Albumin, Serum 3.2 gm/dL (3.4-4.8); Albumin/Globulin Ratio 1.2 (1.2-2.2); Alkaline Phosphatase 96 U/L (46-116); Anion Gap 11 (7-16); Aspartate Amino Transferase 23 U/L (0-34); BUN/Creatinine Ratio 12 Ratio (12-20); Bilirubin,Total 0.5 mg/dL (0.3-1.2); Blood Urea Nitrogen 7 mg/dL (9-23); Calcium 8.7 mg/dL (8.3-10.6); Calcium (Corrected) 9.3 mg/dL (8.5-10.1); Carbon Dioxide 30.2 mMol/L (20.0-31.0); Chloride 104 mMol/L (98-107); Creatinine (Component) 0.6 mg/dL (0.6-1.3); Estimated Creatinine Clearance 43.8 mL/min (>60); Globulin 2.7 gm/dL (2.3-3.5); Glucose 72 mg/dL (74-106); Magnesium 1.6 mg/dL (1.6-2.6); Osmolality,Calculated 285 (275-295); Phosphorous 2.3 mg/dL (2.4-5.1); Potassium 4.0 mMol/L (3.4-5.1); Sodium 145 mMol/L (136-145); Total Protein 5.9 gm/dL (5.7-8.2); eGFR > 60 See Note
[2025-07-29] MEDS: ENOXAPARIN SOD INJ 40 MG/0.4 ML SYRINGE SC (08:43)
--- NOTE | 2025-07-29 09:12 | PC.NURSE ---
Patient unable to remember home medications, calls to genie Cruz went unanswered.
[2025-07-29 10:23] LABS: Clostridium Difficile PCR Positive (Negative)
[2025-07-29 11:05] LABS: Stool for WBCs Negative (Negative)
[2025-07-29] MEDS: NAPH,KPH MBDB 1 PACKET (1.5 GM) PO (11:51)
[2025-07-29] MEDS: FIDAXOMICIN 200 MG TABLET (NON-FORMULARY) PO ×2 (12:24→20:14)
[2025-07-29 12:44] LABS: Cocci Serology, IgM Negative (Negative)
--- NOTE | 2025-07-29 13:06 | ESPR_ITS ---
<Statement entered by Grayson Reinoso MD - 08/08/25 09:19> I reviewed above note and agree with findings and plans. I have also personally examined the patient with medicine team and went over assessment and plan with medical team including internet e commerce specialist and resident physician. <Statement entered by Josué Drake MD - 07/29/25 14:59> Patient was examined and case was reviewed with team including attending physician. Note reviewed, I agree with most of its contents and agree with the patient's care as documented by Dr. Al Patient seen today at bedside found awake, alert, oriented x 3. Vitals and labs reviewed. Patient was admitted for acute gastroenteritis after completing antibiotic therapy. Patient was found to be C. difficile positive with appropriate isolation and measures placed. And was started on oral fidaxomicin. Patient has masses in the pelvis which can be followed as outpatient considering her age and acute illness at this time. Patient can possibly be discharged in the next 24-48 hours if patient continues to clinically improve. Case discussed with my attending Dr. Arleth Drake MD PGY-2 Disclaimer: Despite multiple revisions, due to the dictation software being used, the document bellow may not be free of grammatical errors including phonetic/typographic errors. However, this does not deter from our commitment to providing health care in the patient's best interest in mind. Documentation for date of: 07/29/25 Subjective Subjective Interval history: Patient reports feeling better overall today. No nausea or vomiting. Last BM at 8 AM (watery); at 9:30 AM she felt she was about to have another. No blood in stool but mucus noted in the most recent episode. No abdominal pain this morning. No fever, chills, chest pain, or dyspnea. Mentions dentures need to be swapped; son will bring her replacement set. No other complaints. Exam Vital Signs Temp Pulse Resp BP Pulse Ox O2 Del Method O2 Flow Rate 97.9 F 83 26 H 148/87 H 87 L Room Air 2 07/29/25 12:00 07/29/25 12:00 07/29/25 12:00 07/29/25 12:00 07/29/25 12:00 07/29/25 12:00 07/29/25 00:00 Narrative Exam Physical Exam: General: Alert, no acute distress. Slow to respond. Skin: Warm, dry, intact. Head: Normocephalic, atraumatic. Eye: Normal conjunctiva, PERRL. Throat: Oral mucosa dry. No obvious lesions in oropharynx. Cardiovascular: Regular rate and rhythm, no murmur, +S1/S2. Respiratory: Lungs are clear to auscultation, respirations unlabored, no crackles, no wheezing. Gastrointestinal: Soft, non-distended. Tenderness to light palpation in suprapubic region, LUQ, and LLQ. No guarding or rebound tenderness. Extremities: No edema, no cyanosis, no clubbing. 2+ radial pulse bilaterally, 2+ pedal pulse bilaterally. Neuro: No focal deficits observed. Conversant, moving all extremities. No overt cerebellar signs/incoordination. Psychiatric: Cooperative, flat affect. Objective Labs 07/29/25 04:48 07/29/25 04:48 Labs: Laboratory Results - last 24 hr 07/28/25 07/28/25 07/28/25 14:50 16:20 16:55 WBC 18.6 H D RBC 4.24 Hgb 10.5 L Hct 36.3 MCV 86 MCH 24.8 L MCHC 28.9 L RDW Std Deviation 47.8 H Plt Count 375 Neut % (Auto) 90 H Lymph % (Auto) 2 L [place] % (Auto) 7 Eos % (Auto) 0 Baso % (Auto) 0 Neut # (Auto) 16.7 H Lymph # (Auto) 0.4 L [place] # (Auto) 1.3 H Eos # (Auto) 0.0 Baso # (Auto) 0.1 Immature Gran # (Auto) 0.10 H Absolute Nucleated RBC 0.00 Immature Gran % 1 H Nucleated RBC % 0 PT 12.0 INR 1.1 APTT 28.7 Sodium 148 H Potassium 3.2 L Chloride 101 Carbon Dioxide 39.5 H Anion Gap 8 BUN 11 Creatinine 0.8 Estim Creat Clear Calc 31.0 L eGFR > 60 BUN/Creatinine Ratio 14 Glucose 114 H Calculated Osmolality 294 Lactic Acid 1.8 Calcium 9.3 Corrected Calcium 9.6 Phosphorus 2.2 L Magnesium 1.8 1.7 Total Bilirubin 0.4 AST 17 ALT < 7 L Alkaline Phosphatase 91 Lactate Dehydrogenase 294 H Troponin I 0.026 B-Natriuretic Peptide 295 H Total Protein 6.4 Albumin 3.6 Globulin 2.8 Albumin/Globulin Ratio 1.3 Lipase 19 CA 125 Antigen Procalcitonin 0.68 H Ur Collection Type Clean Catch Urine Color Yellow Urine Clarity Clear Urine pH 6.0 Ur Specific [place] 1.024 Urine Protein 1+ A Urine Glucose (UA) Negative Urine Ketones 1+ A Urine Blood Trace Urine Nitrite Negative Urine Bilirubin Negative Urine Urobilinogen (Auto) 2.0 Ur Leukocyte Esterase Negative Urine RBC 1 Urine WBC 1 Ur Squamous Epith Cells < 1 Urine Bacteria Rare Urine Yeast (Budding) Present A Ur Culture Indicated? Not Indicated Stool for White Cells Stl C. diff Tox B Gene Positive A Urine Opiates Screen Negative Urine Fentanyl Screen Negative Ur Barbiturates Screen Negative U Amphetamin/Meth Scrn Negative U Benzodiazepines Scrn Positive A U Cocaine Metab Screen Negative U Marijuana (THC) Screen Negative Coccidioides IgM Ab SARS-CoV-2 Ag (Rapid) 07/28/25 07/29/25 07/29/25 23:23 04:48 07:37 WBC 17.7 H RBC 4.34 Hgb 10.8 L Hct 37.6 MCV 87 MCH 24.9 L MCHC 28.7 L RDW Std Deviation 49.0 H Plt Count 350 Neut % (Auto) 89 H Lymph % (Auto) 4 L [place] % (Auto) 5 Eos % (Auto) 0 Baso % (Auto) 1 Neut # (Auto) 15.8 H Lymph # (Auto) 0.8 L [place] # (Auto) 0.9 H Eos # (Auto) 0.1 Baso # (Auto) 0.1 Immature Gran # (Auto) 0.08 H Absolute Nucleated RBC 0.00 Immature Gran % 1 H Nucleated RBC % 0 PT INR APTT Sodium 145 Potassium 4.0 D Chloride 104 Carbon Dioxide 30.2 Anion Gap 11 BUN 7 L Creatinine 0.6 Estim Creat Clear Calc 43.8 L eGFR > 60 BUN/Creatinine Ratio 12 Glucose 72 L Calculated Osmolality 285 Lactic Acid Calcium 8.7 Corrected Calcium 9.3 Phosphorus 2.3 L Magnesium 1.6 Total Bilirubin 0.5 AST 23 ALT < 7 L Alkaline Phosphatase 96 Lactate Dehydrogenase Troponin I B-Natriuretic Peptide Total Protein 5.9 Albumin 3.2 L Globulin 2.7 Albumin/Globulin Ratio 1.2 Lipase CA 125 Antigen 41.0 H Procalcitonin Ur Collection Type Urine Color Urine Clarity Urine pH Ur Specific [place] Urine Protein Urine Glucose (UA) Urine Ketones Urine Blood Urine Nitrite Urine Bilirubin Urine Urobilinogen (Auto) Ur Leukocyte Esterase Urine RBC Urine WBC Ur Squamous Epith Cells Urine Bacteria Urine Yeast (Budding) Ur Culture Indicated? Stool for White Cells Negative Stl C. diff Tox B Gene Urine Opiates Screen Urine Fentanyl Screen Ur Barbiturates Screen U Amphetamin/Meth Scrn U Benzodiazepines Scrn U Cocaine Metab Screen U Marijuana (THC) Screen Coccidioides IgM Ab Negative SARS-CoV-2 Ag (Rapid) Negative Quality Measures Quality Measures VTE prophylaxis Advance care planning discussed with:: patient Assessment & Plan Assessment Current Active Medications: Generic Name Dose Route Start Last Admin Trade Name Freq PRN Reason Stop Dose Admin Acetaminophen 650 mg 07/28/25 22:20 Acetaminophen 325 Mg Tablet PO 08/27/25 22:19 Q6H PRN Fever >101.5 or pain 1-3 Albuterol/Ipratropium 3 ml 07/28/25 22:25 Albuterol/Ipratropium (Duoneb) Rt Lorena 3 Ml Nebu INH 08/27/25 22:24 Q2HR PRN SHORTNESS OF BREATH OR WHEEZE Alprazolam 0.5 mg 07/28/25 23:03 Alprazolam 0.25 Mg Tablet PO 08/02/25 23:02 BID PRN ANXIETY Enoxaparin Sodium 40 mg 07/29/25 09:00 07/29/25 08:43 Enoxaparin Sod Inj 40 Mg/0.4 Ml Syringe SC 08/12/25 08:59 40 mg QDAY TANNER Administration Fidaxomicin 200 mg 07/29/25 11:00 07/29/25 12:24 Fidaxomicin 200 Mg Tablet (Non-Formulary) PO 08/05/25 10:59 200 mg BID TANNER Administration Sodium Chloride 1,000 mls @ 85 mls/hr 07/28/25 16:41 07/29/25 05:16 Ns IV 08/27/25 16:40 85 mls/hr .[id number] TANNER Administration Ondansetron HCl 4 mg 07/28/25 22:20 Ondansetron Inj 2 Mg/Ml Inj 2 Ml IVP 08/27/25 22:19 Q6H PRN NAUSEA OR VOMITING Protocol Plan 89F with COPD on 2L nocturnal O2 and HTN admitted for acute watery diarrhea, now confirmed C. difficile infection, starting fidaxomicin; also with diffuse bilateral pneumonia and incidental pulmonary & ovarian masses. # Severe C. difficile colitis, WBC > 15 # Leukocytosis Patient complaining of weeklong diarrhea last throughout the day. Noted to be watery, moderate volume, and foul-smelling per ED nursing staff. Patient is unsure how many bowel movements she has daily, however patient did have 5 watery bowel movements in ED from early afternoon prior to admission on 07/28 in the evening. Diarrhea does coincide with the patient starting a weeklong course of Augmentin and azithromycin for pneumonia, to which the patient has completed. Diagnostic: Patient noted to have fever of 101 ?F in ED WBC 18.6 and procalcitonin 0.68 in ED, lactic acid within normal limits in ED 07/29: Positive C. difficile antigen. Meets ACG/IDSA criteria for severe CDI given: * WBC >15,000 -> patient WBC 17.7 * Creatinine normal (0.6), but only one criterion is required for classification Patient has frequent watery stools, mucus present, no blood. Hemodynamically stable, no ileus, no abdominal distension, and no evidence of fulminant disease (no shock, no megacolon). Lactate normal at 1.8. Thus appropriately classified as severe CDI, not fulminant. Plan: * Start Fidaxomicin 200 mg PO BID x 10 days (first-line therapy for severe CDI) * Maintain contact precautions * Strict monitoring of stool output & daily abdominal exams * Trend CBC, BMP, lactate * Continue hydration; maintain euvolemia * Avoid antimotility agents * Low threshold to escalate to ICU evaluation if any signs of fulminant disease: * Hypotension, shock * Ileus (no stool, abdominal distension) * Toxic megacolon symptoms #Electrolyte abnormalities #Hypernatremia #Hypokalemia #Metabolic alkalosis Diagnostic: Sodium 148, potassium 3.2, and bicarb 39.5 in ED Hypernatremia likely secondary to dehydration from diarrhea Hypokalemia possibly chronic condition as patient has been prescribed potassium chloride previously Metabolic alkalosis possibly secondary to calcium carbonate-vitamin D3 that has been prescribed to the patient 07/29: Na now 145 (from 148), K normalized, CO2 30. Likely from diarrhea losses + prior supplementation. Treatment: Monitor BMP daily Replete potassium magnesium phosphate as needed #Pulmonary mass versus consolidation, posterior superior left lower lobe #Bilateral pleural effusions, mild to moderate Patient noted to have pulmonary mass in the posterior superior left lower lobe on CT chest/abdomen/pelvis. Not identified on chest x-ray. Patient has not had any previous imaging of the chest with CT, so unclear of the evolution of this mass. Patient was noted to have pneumonia in the past per the patient and was recently given antibiotics that she completed. Diagnostic: CT chest/abdomen/pelvis on 07/28 shows 22 mm dense consolidation versus pulmonary mass in posterior superior left lower lobe with mild to moderate bilateral pleural effusions Treatment: Patient to follow-up outpatient for monitoring Cocci serology ordered, negative #Thickened gallbladder wall As shown on CT chest/abdomen/pelvis. Low suspicion for acute cholecystitis given lack of right upper quadrant pain. Treatment: Patient to follow-up outpatient #Irregular liver contour Possibly cirrhosis versus primary palisading disease. LFTs within normal limits. Patient denies any history of cirrhosis and denies extensive alcohol history. Treatment: Patient to follow-up outpatient #Right ovarian mass Diagnostic: CT chest/abdomen/pelvis on 07/28 shows 30 mm hypodense right ovarian mass CT abdomen/pelvis on 07/13/2025 shows 37 mm right pelvic cyst Pelvic ultrasound on 07/13/2025 shows solid left ovarian mass measuring 6.7 x 5.5 x 4.9 cm CA125 elevated. Treatment: Patient to follow-up outpatient for possible biopsy of the mass. #Anemia, normocytic Diagnostic: Hemoglobin of 10.8 with MCV of 87 Treatment: Possibly anemia of chronic disease Patient to follow-up outpatient #History of COPD Patient previously diagnosed with COPD, however the patient herself stated that she does not know if she has any official testing done. Per chart review, the patient has been using 2 L of supplemental oxygen at night for at least 10 years. Patient saturating 96 to 98% on 2 L of oxygen in ED, no increased work of breathing noted. Treatment: Duonebs as needed Oxygen via nasal cannula as needed Pending med rec #History of hypertension Patient noted to have a history of hypertension, does take antihypertensive at home, but does not know which medication doses. Treatment: Pending med rec Health maintenance: DVT Prophylaxis: Lovenox GI Prophylaxis: N/A Bowel: 2 since this morning Diet: Regular Brower: Yes Lines: PIV Antibiotics: Fidaxomicin 200 mg twice daily for 10 days. ----- Plan discussed with attending physician Dr. Reinoso and senior resident Dr. Donaldo Al MD PGY-1 Internal Medicine
--- NOTE | 2025-07-29 13:39 | PC.SS ---
Angelina Rebolledo is a 89 year-old female admitted to Med Surg for Gatronenteritis. SS conducted bedside contact with the patient to complete initial assessment and to discuss discharge planning. Role and reason explained. Patient confirmed demographic information. Patient identifies son Anthony Sandoval [phone] as her surrogate decision maker. Pt states she is able to complete all ADL?s independently. Pt has a rollator walker. Pts PCP is Dr. Michele Jay (last visit 3 months ago). Pharmacy of choice is [facility]. Discharge options discussed and the pt wishes to return home.? Family will provide transportation upon DC. No further intervention required at this time, social insurance adviser would be available to address any further concerns. DC Plan: Home Contact: Anthony Cornelius Address: Confirmed on face sheet PCP: Michele Jay
--- NOTE | 2025-07-29 17:15 | PC.PT ---
Patient is safe to ambulate to the bathroom with 1 staff and a FWW. RN made aware.
[2025-07-29] MEDS: ALBUTEROL/IPRATROPIUM (Duoneb) RT SOL 3 ML NEBU INH (19:44)
[2025-07-30] VITALS: BP 142/94; PULSE 89; RESP 18; TEMP 36.3; O2SAT 99
[2025-07-30 04:00] VITALS: BP 153/90; PULSE 98; RESP 18; TEMP 36.6; O2SAT 96
[2025-07-30 05:59] LABS: Basophils # (Auto) 0.1 Thou/mm3 (0.0-0.2); Basophils % (Auto) 1 % (0-2.5); Eosinophils # (Auto) 0.3 Thou/mm3 (0.0-0.5); Eosinophils % (Auto) 2 % (0-10); Hematocrit 33.6 % (36.0-46.0); Hemoglobin 10.0 g/dL (12.0-16.0); Immature Granulocytes Auto 0.05 Thou/mm3 (0.00-0.00); Lymphocytes # (Auto) 0.9 Thou/mm3 (1.0-4.8); Lymphocytes % (Auto) 7 % (10-50); Mean Corpuscular HGB Conc 29.8 g/dl (31.0-37.0); Mean Corpuscular Hemoglobin 24.8 pg (25.0-35.0); Mean Corpuscular Volume 83 fL (80-100); Monocytes # (Auto) 0.8 Thou/mm3 (0.0-0.8); Monocytes % (Auto) 6 % (0-12); Neutrophils # (Auto) 11.3 Thou/mm3 (1.8-7.7); Neutrophils % (Auto) 84 % (37-80); Nucleated Red Blood Cell # 0.00 Thou/mm3 (0.00-0.00); Nucleated Red Blood Cell % 0 /100 WBC (0); Platelet Count 357 Thou/mm3 (140-440); RDW Standard Deviation 46.5 fL (36.4-46.3); Red Blood Count 4.03 Miln/mm3 (4.00-5.20); White Blood Count 13.5 Thou/mm3 (3.6-11.0)
[2025-07-30 06:31] LABS: Alanine Aminotransferase < 7 U/L (10-49); Albumin, Serum 2.9 gm/dL (3.4-4.8); Albumin/Globulin Ratio 1.3 (1.2-2.2); Alkaline Phosphatase 83 U/L (46-116); Anion Gap 10 (7-16); Aspartate Amino Transferase 21 U/L (0-34); BUN/Creatinine Ratio 13 Ratio (12-20); Bilirubin,Total 0.4 mg/dL (0.3-1.2); Blood Urea Nitrogen 8 mg/dL (9-23); Calcium 8.3 mg/dL (8.3-10.6); Calcium (Corrected) 9.2 mg/dL (8.5-10.1); Carbon Dioxide 33.3 mMol/L (20.0-31.0); Chloride 101 mMol/L (98-107); Creatinine (Component) 0.6 mg/dL (0.6-1.3); Estimated Creatinine Clearance 43.8 mL/min (>60); Globulin 2.3 gm/dL (2.3-3.5); Glucose 81 mg/dL (74-106); Magnesium 1.5 mg/dL (1.6-2.6); Osmolality,Calculated 284 (275-295); Phosphorous 1.9 mg/dL (2.4-5.1); Potassium 3.1 mMol/L (3.4-5.1); Sodium 144 mMol/L (136-145); Total Protein 5.2 gm/dL (5.7-8.2); eGFR > 60 See Note
[2025-07-30 08:00] VITALS: BP 137/88; PULSE 91; RESP 16; TEMP 36.1; O2SAT 98
[2025-07-30] MEDS: SODIUM CHLORIDE 0.9% 1000 ML 1,000 ML 85 ML IV (08:14)
[2025-07-30] MEDS: ENOXAPARIN SOD INJ 40 MG/0.4 ML SYRINGE SC (08:16)
[2025-07-30] MEDS: Magnesium Sulfate 4 GM Ivpb 4 GM/50 ML BAG IV (08:16)
[2025-07-30] MEDS: FIDAXOMICIN 200 MG TABLET (NON-FORMULARY) PO (08:17)
[2025-07-30 09:42] VITALS: PULSE 76; RESP 19; O2SAT 98
[2025-07-30] MEDS: POT PHOS 15 mMol in NS 250 ML 15 MMOL/250 ML BAG 62.5 MMOL IV (10:01)
--- NOTE | 2025-07-30 10:46 | ESDS_ITS ---
<Statement entered by Grayson Reinoso MD - 08/08/25 09:20> I reviewed above note and agree with findings and plans. I have also personally examined the patient with medicine team and went over assessment and plan with medical team including editing intern and resident physician. Planned Discharge Date 07/30/25 DS: Providers Provider Date of admission: 07/28/25 22:20 Primary care physician: Physician No Primary/Family Admitting Provider: Liborio Jose MD Attending Provider on Admission: Liborio Jose MD Consults: 07/29/25 00:53 Referral Infection Control Routine Comment: Reason for Infection Control Referral: Readmitted within 30 days Admitted with Diarrhea 07/29/25 00:54 Referral Physical Therapy Routine Comment: Physician Instructions: Referral Respiratory Therapy Routine Comment: 07/29/25 11:12 Consult to Infectious Diseases Urgent Comment: FIDAXOMICIN ORDER IN CDIFF, RESTRICTED ABX Consulting Provider: Cody Johnston Attending Provider on DC: Grayson Reinoso MD Discharging Provider: Josué Drake MD Anticipated date of discharge: 07/30/25 DS: Diagnosis Problem List Completed Was Problem List Reviewed/Reconciled?: Yes Hospital Course Hospital Course Hospital course: 89-year-old female with a history of COPD (2 L O2 at night) and hypertension who presented to [facility] ED on 07/28 for frequent watery diarrhea. Patient was admitted for management of gastroenteritis with C. difficile rule out. During hospital stay patient underwent workup for C. difficile which was found to be positive considering patient's WBCs and kidney function were appropriate and symptomatic improvement with Fidaxomicin patient can continue fidaxomicin therapy at home with strict return precautions.As patient finished her antibiotic course prior to admission there was no need to change her original antibiotic therapy and will only require Fidaxomicin.Patient was encouraged to increase fluid intake p.o. to avoid dehydration. Follow up with primary care physician within 1 week of discharge Instructions have been explained to the patient with regards to their medications and how to take them. Patient was able to explain back to physician and nursing staff how to take their medications. Patient expressed understanding with instructions. Please drink a lot of fluids to avoid dehydration New Medications: Fidaxomicin 200mg twice a day for a total of 10 days for your C. Dificile Diarrhea Continue to take the rest of your medications as prescribed by your primary care physician. Patient has been explained that should any symptoms recur or worsen patient is instructed to return to the Emergency Department. Problem List: #Severe C. difficile colitis, WBC > 15 #Leukocytosis #Electrolyte abnormalities #Hypernatremia #Hypokalemia #Metabolic alkalosis #Pulmonary mass versus consolidation, posterior superior left lower lobe #Bilateral pleural effusions, mild to moderate #Thickened gallbladder wall #Irregular liver contour #Right ovarian mass #Anemia, normocytic #History of COPD #History of hypertension Case discussed with my attending Dr. Arleth Drake MD PGY-2 Disclaimer: Despite multiple revisions, due to the dictation software being used, the document bellow may not be free of grammatical errors including phonetic/typographic errors. However, this does not deter from our commitment to providing health care in the patient's best interest in mind. Status at Discharge Functional status at discharge: independent ambulation Overall status at discharge: patient is back to baseline Time Spent with Patient Time attestation: Total time spent providing and/or coordinating discharge services: Time spent: Greater than 30 minutes Exam Vital Signs Temp Pulse Resp BP Pulse Ox O2 Del Method O2 Flow Rate 97.0 F 76 19 137/88 H 98 Nasal Cannula 2 07/30/25 08:00 07/30/25 09:42 07/30/25 09:42 07/30/25 08:00 07/30/25 09:42 07/30/25 08:00 07/30/25 09:42 Narrative Exam General: Alert, no acute distress. Slow to respond. Skin: Warm, dry, intact. Head: Normocephalic, atraumatic. Eye: Normal conjunctiva, PERRL. Throat: Oral mucosa dry. No obvious lesions in oropharynx. Cardiovascular: Regular rate and rhythm, no murmur, +S1/S2. Respiratory: Lungs are clear to auscultation, respirations unlabored, no crackles, no wheezing. Gastrointestinal: Soft, non-distended. Tenderness to light palpation in suprapubic region, LUQ, and LLQ. No guarding or rebound tenderness. Extremities: No edema, no cyanosis, no clubbing. 2+ radial pulse bilaterally, 2+ pedal pulse bilaterally. Neuro: No focal deficits observed. Conversant, moving all extremities. No overt cerebellar signs/incoordination. Psychiatric: Cooperative, flat affect. Discharge Plan Plan Patient Disposition: HOME (Self Care) Patient condition on transfer: Stable Care Plan Goals: Follow up with primary care physician within 1 week of discharge Instructions have been explained to the patient with regards to their medications and how to take them. Patient was able to explain back to physician and nursing staff how to take their medications. Patient expressed understanding with instructions. Please drink a lot of fluids to avoid dehydration New Medications: Fidaxomicin 200mg twice a day for a total of 10 days for your C. Dificile Diarrhea Continue to take the rest of your medications as prescribed by your primary care physician. Patient has been explained that should any symptoms recur or worsen patient is instructed to return to the Emergency Department. Prescriptions/Referrals Prescriptions/Med Rec: New fidaxomicin 200 mg tablet 200 mg PO Q12H 10 Days Qty: 20 0RF Continued alprazolam [Xanax] 1 MG tablet 1 mg PO BID PRN (Reason: Anxiety) Qty: 0 carvedilol 25 mg tablet 25 mg PO BID alendronate 70 mg tablet 70 mg PO QWEEK montelukast 10 mg tablet 10 mg PO QDAY loratadine 10 mg tablet 10 mg PO QDAY Spiriva with HandiHaler 18 mcg capsule, w/inhalation device 1 cap INHALATION QDAY calcium carbonate-vitamin D3 600 mg(1,500mg) -400 unit tablet 1 tab PO QDAY budesonide-formoterol [Symbicort] 160-4.5 mcg/actuation HFA aerosol inhaler 2 puff INHALATION BID pantoprazole [Protonix] 40 mg tablet,delayed release (DR/EC) 40 mg PO QDAY Qty: 30 0RF prednisone 50 mg tablet 50 mg PO QDAY Qty: 7 0RF Proair Digihaler 90 mcg/actuation aero powdr breath act w/sensor 2 inh inhalation QID PRN (Reason: shortness of breath or wheezing) Qty: 1 0RF Referrals: [facility] [Outside] No Primary/Family,Physician [Primary Care Provider] Patient/Caregiver Discharge Instructions Education Materials: Clostridium Difficile Infection, What Is C. Diff? Print Language: Bhutanese Stand Alone Forms: Karen Award Info., Patient Portal Info Letter Discharge Order Discharge Orders: Discharge (Routine); Ordered 12/06/25 Ordered By: Josué Drake Quality Discharge Quality Measures VTE prophylaxis
[2025-07-30 12:00] VITALS: BP 147/80; PULSE 76; RESP 19; TEMP 36.3; O2SAT 96
--- NOTE | 2025-07-30 12:58 | PC.NURSE ---
Pt has a Brower catheter. Called to get an order to remove. Will have patient post void then discharge.
[2025-07-30 14:33] LABS: Cocci Serology, IgG Negative (Negative)
--- NOTE | 2025-07-30 15:29 | PC.NURSE ---
Pt urinated. Ready for discharge. Pt would like her son Anthony to be present for discharge instructions. Anthony is also her ride home. Contacted Anthony. He is unable to come bead picker patient until around 17:30-18:00.
--- NOTE | 2025-07-30 15:40 | ESDS_ITS ---
<Statement entered by Grayson Reinoso MD - 08/13/25 09:22> I reviewed above note and agree with findings and plans. I have also personally examined the patient with medicine team and went over assessment and plan with medical team including director internal audit and resident physician. Planned Discharge Date 07/30/25 DS: Providers Provider Date of admission: 07/28/25 22:20 Primary care physician: Physician No Primary/Family Admitting Provider: Liborio Jose MD Attending Provider on Admission: Liborio Jose MD Consults: 07/29/25 00:53 Referral Infection Control Routine Comment: Reason for Infection Control Referral: Readmitted within 30 days Admitted with Diarrhea 07/29/25 00:54 Referral Physical Therapy Routine Comment: Physician Instructions: Referral Respiratory Therapy Routine Comment: 07/29/25 11:12 Consult to Infectious Diseases Urgent Comment: FIDAXOMICIN ORDER IN CDIFF, RESTRICTED ABX Consulting Provider: Cody Johnston Attending Provider on DC: Hannah Lebron MD Discharging Provider: Hannah Lebron MD DS: Diagnosis Problem List Completed Was Problem List Reviewed/Reconciled?: Yes Hospital Course Hospital Course Hospital course: 89-year-old female with a history of COPD (2 L O2 at night) and hypertension who presented to [facility] ED on 07/28 for frequent watery diarrhea. Patient was admitted for management of gastroenteritis with C. difficile rule out. During hospital stay patient underwent workup for C. difficile which was found to be positive considering patient's WBCs and kidney function were appropriate and symptomatic improvement with Fidaxomicin patient can continue fidaxomicin therapy at home with strict return precautions.As patient finished her a ntibiotic course prior to admission there was no need to change her original antibiotic therapy and will only require Fidaxomicin.Patient was encouraged to increase fluid intake p.o. to avoid dehydration. Follow up with primary care physician within 1 week of discharge Instructions have been explained to the patient with regards to their medications and how to take them. Patient was able to explain back to physician and nursing staff how to take their medications. Patient expressed understanding with instructions. Please drink a lot of fluids to avoid dehydration New Medications: Fidaxomicin 200mg twice a day for a total of 10 days for your C. Dificile Diarrhea Continue to take the rest of your medications as prescribed by your primary care physician. Patient has been explained that should any symptoms recur or worsen patient is instructed to return to the Emergency Department. Problem List: #Severe C. difficile colitis, WBC > 15 #Leukocytosis #Electrolyte abnormalities #Hypernatremia #Hypokalemia #Metabolic alkalosis #Pulmonary mass versus consolidation, posterior superior left lower lobe #Bilateral pleural effusions, mild to moderate #Thickened gallbladder wall #Irregular liver contour #Right ovarian mass #Anemia, normocytic #History of COPD #History of hypertension Case discussed with my attending Dr. Arleth Drake MD PGY-2 Disclaimer: Despite multiple revisions, due to the dictation software being used, the document bellow may not be free of grammatical errors including phonetic/typographic errors. However, this does not deter from our commitment to providing health care in the patient's best interest in mind. Time Spent with Patient Time attestation: Total time spent providing and/or coordinating discharge services: Time spent: Greater than 30 minutes Exam Vital Signs Temp Pulse Resp BP Pulse Ox O2 Del Method O2 Flow Rate 97.3 F 76 19 147/80 H 96 Nasal Cannula 2 07/30/25 12:07/30/25 12:07/30/25 12:00 07/30/25 12:00 07/30/25 12:00 07/30/25 12:00 07/30/25 12:00 Discharge Plan Plan Patient Disposition: HOME (Self Care) Patient condition on transfer: Stable Care Plan Goals: Follow up with primary care physician within 1 week of discharge Instructions have been explained to the patient with regards to their medications and how to take them. Patient was able to explain back to physician and nursing staff how to take their medications. Patient expressed understanding with instructions. Please drink a lot of fluids to avoid dehydration New Medications: Fidaxomicin 200mg twice a day for a total of 10 days for your C. Dificile Diarrhea Continue to take the rest of your medications as prescribed by your primary care physician. Patient has been explained that should any symptoms recur or worsen patient is instructed to return to the Emergency Department. Prescriptions/Referrals Prescriptions/Med Rec: New fidaxomicin 200 mg tablet 200 mg PO Q12H 10 Days Qty: 20 0RF Continued alprazolam [Xanax] 1 MG tablet 1 mg PO BID PRN (Reason: Anxiety) Qty: 0 carvedilol 25 mg tablet 25 mg PO BID alendronate 70 mg tablet 70 mg PO QWEEK montelukast 10 mg tablet 10 mg PO QDAY loratadine 10 mg tablet 10 mg PO QDAY Spiriva with HandiHaler 18 mcg capsule, w/inhalation device 1 cap INHALATION QDAY calcium carbonate-vitamin D3 600 mg(1,500mg) -400 unit tablet 1 tab PO QDAY budesonide-formoterol [Symbicort] 160-4.5 mcg/actuation HFA aerosol inhaler 2 puff INHALATION BID pantoprazole [Protonix] 40 mg tablet,delayed release (DR/EC) 40 mg PO QDAY Qty: 30 0RF prednisone 50 mg tablet 50 mg PO QDAY Qty: 7 0RF Proair Digihaler 90 mcg/actuation aero powdr breath act w/sensor 2 inh inhalation QID PRN (Reason: shortness of breath or wheezing) Qty: 1 0RF Referrals: [facility] [Outside] No Primary/Family,Physician [Primary Care Provider] Patient/Caregiver Discharge Instructions Education Materials: Clostridium Difficile Infection, What Is C. Diff? Print Language: Czech Stand Alone Forms: Karen Award Info., Patient Portal Info Letter Discharge Order Discharge Orders: Discharge (Routine); Ordered 07/30/25 Ordered By: Josué Drake Quality Discharge Quality Measures VTE prophylaxis
[2025-07-30 16:00] VITALS: BP 128/77; PULSE 82; RESP 18; TEMP 36.4; O2SAT 93
--- NOTE | 2025-07-30 19:15 | PC.NURSE ---
Pt is alert and oriented, 2 brothers here to pick her up with private vehicle. Pt sent down per wheelchair by LATESHA Werner.
[2025-08-02 07:43] LABS: Giardia Result NOT DETECTED; Norovirus, EIA (Stool)* NOT DETECTED
[2025-08-02 23:34] LABS: Source STOOL
[2025-08-03 06:31] LABS: Helicobacter pylori Ag, Stool* NOT DETECTED (NOT DETECTED)
[2025-08-05 06:26] LABS: Calprotectin, Stool* 655 mcg/g
== END 2025-07-30 19:15 | disposition home or self-care (01) | DRG 371 ==
LOC: SERX 22:28 → SERHOLD 22:54 → S3NX 07-29 00:35
PROVIDERS: Registered Nurse General Practice; Admitting Provider Student in an Organized Health Care Education/Training Program; Emergency Provider Family Medicine; Visit Provider Student in an Organized Health Care Education/Training Program
DX: A04.72 Enterocolitis due to Clostridium difficile, not specified as recurrent (principal); J18.9 Pneumonia, unspecified organism; J90 Pleural effusion, not elsewhere classified; E87.0 Hyperosmolality and hypernatremia; J44.0 Chronic obstructive pulmonary disease with (acute) lower respiratory infection; K56.7 Ileus, unspecified; E87.3 Alkalosis; I10 Essential (primary) hypertension; D64.9 Anemia, unspecified; E87.6 Hypokalemia; E86.0 Dehydration; N83.9 Noninflammatory disorder of ovary, fallopian tube and broad ligament, unspecified; F17.210 Nicotine dependence, cigarettes, uncomplicated; Z99.81 Dependence on supplemental oxygen; F17.200 Nicotine dependence, unspecified, uncomplicated; Z79.83 Long term (current) use of bisphosphonates; Z79.899 Other long term (current) drug therapy; R19.00 Intra-abdominal and pelvic swelling, mass and lump, unspecified site
CPT/HCPCS: 36415; 51701; 51702; 71250; 74176; 80053; 80307; 81001; 83605; 83615; 83690; 83735; 83880; 83993; 84100; 84145; 84484; 85025; 85610; 85730; 86304; 86331; 86635; 87040; 87081; 87177; 87205; 87209; 87329; 87338; 87449; 87493; 87635; 87811; 93005; 94640; 94664; 96361; 96365; 97163; 99285; A4314; A9270; J0131; J1650; J3475; J3480; J7030; J7120; J7999

== ENCOUNTER 2025-08-01 13:09 | Inpatient (IN) | payer MEDICARE, MEDICAID, SELFPAY ==
[2025-08-01] VITALS (7 sets, daily range): BP systolic 144–155; BP diastolic 52–88; PULSE 70–90; RESP 18–20; TEMP 36.3–37.1; O2SAT 92–97; BMI 17.4; BMI 18.2
--- NOTE | 2025-08-01 13:21 | XR_ITS ---
Examination: Bilateral hips, AP pelvis, 5 views Technique: AP, lateral views both hips, AP pelvis, 5 views Exam date and time: August 01, 2025, 1330 hours INDICATIONS: Injury of the right hip today, right hip pain. FINDINGS: Suspicious for acute right subcapital hip fracture with mild impaction Left hip bones of the pelvis intact IMPRESSION: Recommend CT scan right hip follow-up to confirm acute right subcapital hip fracture
--- NOTE | 2025-08-01 13:23 | PD.EDADULT ---
ED General RME/HPI General Chief complaint: Fall Stated complaint: RT HIP PAIN Time Seen by Provider: 08/01/25 13:10 Arrival date/time: 08/01/25 13:09 Related Data Home Medications ?Medication ?Instructions ?Recorded ?Confirmed alprazolam 1 mg tablet (Xanax) 1 mg PO BID PRN Anxiety ##0 03/06/13 07/02/21 alendronate 70 mg tablet 70 mg PO QWEEK 07/02/21 07/02/21 budesonide-formoterol HFA 160 2 puff inhalation BID 07/02/21 07/02/21 mcg-4.5 mcg/actuation aerosol inhaler (Symbicort) calcium 600 mg (as 1 tab PO QDAY 07/02/21 07/02/21 carbonate)-vitamin D3 10 mcg (400 unit) tablet carvedilol 25 mg tablet 25 mg PO BID 07/02/21 07/02/21 loratadine 10 mg tablet 10 mg PO QDAY 07/02/21 07/02/21 montelukast 10 mg tablet 10 mg PO QDAY 07/02/21 07/02/21 tiotropium bromide 18 mcg capsule 1 cap inhalation QDAY 07/02/21 07/02/21 with inhalation device (Spiriva with HandiHaler) Previous Rx's ?Medication ?Instructions ?Recorded pantoprazole 40 mg tablet,delayed 40 mg PO QDAY #30 tabs 07/25/23 release (Protonix) albuterol sulfate 90 mcg/actuation 2 inh inhalation QID PRN shortness 07/15/24 breath activated powder of breath or wheezing #1 ea inhaler,sensor (Proair Digihaler) prednisone 50 mg tablet 50 mg PO QDAY #7 tabs 07/15/24 fidaxomicin 200 mg tablet 200 mg PO Q12H 10 days #20 tabs 07/30/25 Allergies Allergy/AdvReac Type Severity Reaction Status Date / Time codeine Allergy Mild Vomiting Verified 07/28/25 13:14 ED Exam Narrative Physical exam: Physical Exam: GENERAL: Awake, answering questions appropriately, appears stated age HEENT: NC/AT. Moist mucosa. PERRLA/EOMI. CARDIO: Heart RRR, no obvious murmurs, no JVD. PULM: No coughing or visible SOB. Lungs CTA B/L. Sporadic wheezing noted GI: Abdomen soft, NT/ND, +BS. SKIN/MSK/EXT: Tenderness on palpation of the right hip. No wounds/discoloration/rashes/edema/amputations. +Pedal pulses present B/L. NEURO: Oriented x3, no focal neurologic deficits noted. Able to wiggle toes. And sensations grossly intact. Course Quality Measures none Orders Category Date Time Status COVID-19 Screening Questionnaire NOW Care 08/01/25 14:55 Active Consult Granite Worker NOW Care 08/01/25 14:46 Active Decision to Admit X1 Care 08/01/25 14:55 Active Insert IV NOW Care 08/01/25 13:20 Active NPO after Midnight ONCE Care 08/01/25 16:52 Active Consult to Orthopedic Stat Cons 08/01/25 14:54 Ordered Diet NPO after Midnight Diet 08/02/25 00:01 Active XR hip BI w pelvis 2V Stat Exams 08/01/25 13:21 Completed XR hip RT 1V Stat Exams 08/01/25 14:17 Completed CBC Stat Lab 08/01/25 15:38 Completed CMP [Comprehensive Metabolic Panel] Stat Lab 08/01/25 15:38 Completed Potassium Chloride [K-Dur] Med 08/01/25 16:52 Discontinued 40 meq PO X1 ONE Oxygen Delivery NOW RT 08/01/25 13:20 Active Vital Signs Vital signs: Vital Signs Temperature 98.5 F 08/01/25 13:29 Pulse Rate 90 08/01/25 13:29 Respiratory Rate 18 08/01/25 13:29 Blood Pressure 148/88 H 08/01/25 13:29 Pulse Oximetry (%) 94 L 08/01/25 13:29 Oxygen Delivery Method Nasal Cannula 08/01/25 13:29 Oxygen Flow Rate 2 08/01/25 13:29 Discharge Plan Plan Patient Disposition: Admit Acute Care w/in Hospital Patient condition on transfer: Stable Problem List Clinical Impression: Hip fracture MDM Narrative MDM hospital course (for use when minimal MDM required): HPI: 89-year-old female with past medical history of COPD on 2 L home oxygen at night, hypertension presenting to the ED on 08/01 due to an episode of a fall on her right hip. Patient states that she was tying her shoes in front of her 2 sons when she lost her balance and fell on her right side. Patient did not lose consciousness during this episode and denies having any chest pain, shortness of breath or any dizziness. Per son's bedside, patient has been more forgetful recently and apparently has decided to wean off her alprazolam. The sons are worried that she possibly might of fallen prior to this episode. She currently lives alone and her sons live in [place] and visit her about once or twice a week. On examination please refer to the physical exam above; patient is presented mildly hypertensive blood pressure 148 over 88, heart rate 90, respiratory rate 18, afebrile satting 94 on 2 L nasal cannula. Pertinent lab findings included normocytic anemia, CMP largely unremarkable other than hypokalemia at 3.0, mild LFT elevation with AST 35, ALT 16, Hip pelvis x-ray shows acute right subcapital hip fracture with mild impaction Called orthopedic surgeon on-call who has agreed to take the patient to the OR tomorrow #Right hip fracture As noted above based on physical exam, labs and imaging findings Orthopedic surgery on board Hospitalist team has agreed to admit the patient Plan: Pain management Keep n.p.o. after midnight for tentatively scheduled operation Patient seen and assessed with attending Dr. Zoran Jarvis, DO PGY-2 Internal Medicine - GME Medication Administration(s) Medication Administration History Acetaminophen (Acetaminophen 325 Mg Tablet) 650 mg PO Q6H PRN PRN Reason: Fever >100 Stop: 08/31/25 17:56 Acetaminophen (Acetaminophen 325 Mg Tablet) 650 mg PO Q6H PRN PRN Reason: PAIN SCALE 1-3 (mild Stop: 08/31/25 17:56 Hydrocodone Bitart/Acetaminophen (Hydrocodone/Apap 5/325 Tablet) 1 tab PO Q4HR PRN PRN Reason: PAIN SCALE 4-10(Mod-Sev Stop: 08/06/25 17:56 Fidaxomicin (Fidaxomicin 200 Mg Tablet (Non-Formulary)) 200 mg PO BID TANNER Stop: 08/08/25 20:59 Heparin Sodium (Porcine) (Heparin Sod Inj 5000 Unit/Ml Vial) 5,000 unit SC X1 ONE Stop: 08/01/25 20:01 Hydralazine HCl (Hydralazine Inj 20 Mg/Ml Vial) 5 mg IVP Q4H PRN PRN Reason: SBP > 170 Stop: 08/31/25 18:01 Ondansetron HCl (Ondansetron Inj 2 Mg/Ml Inj 2 Ml) 4 mg IVP Q6H PRN; Protocol PRN Reason: NAUSEA OR VOMITING Stop: 08/31/25 17:56 Discontinued Medications Potassium Chloride (Potassium Chloride 20 Meq Tabcr) 40 meq PO X1 ONE Stop: 08/01/25 16:53 Last Admin: 08/01/25 17:50 Dose: 40 meq Documented By: ANNALISA
--- NOTE | 2025-08-01 14:17 | XR_ITS ---
EXAMINATION: Crosstable lateral right hip TECHNIQUE: Right hip crosstable lateral Date and time: July,, 1422 hours INDICATIONS: Patient fell today with injury of the hip, hip pain. FINDINGS: Acute appearing impacted right subcapital hip fracture No hip dislocation IMPRESSION: Acute appearing impacted right subcapital hip fracture
--- NOTE | 2025-08-01 15:17 | PC.SS ---
Patient Angelina Rebolledo is a 89 year-old female admitted for Hip Pain. SS conducted bedside contact with patient and patient's son Anthony to complete initial assessment and to discuss discharge planning. Role and reason explained. Patients son confirmed demographic information. son Anthony Sandoval [phone] has listed himself as surrogate decision maker [phone] or [phone]. Anthony reports patient was able to complete all ADL?s independently prior to the fall. Pt has a rollator walker. Pts PCP is Dr. Michele Jay. Pharmacy of choice is [facility]. Discharge options discussed and Anthony reports he would like patient to discharge to SNF. SS will need to follow up with Discharge plan. DC Plan: SNF Contact: Anthony Cornelius PCP: Michele Jay
[2025-08-01 15:46] LABS: Basophils # (Auto) 0.1 Thou/mm3 (0.0-0.2); Basophils % (Auto) 1 % (0-2.5); Eosinophils # (Auto) 0.0 Thou/mm3 (0.0-0.5); Eosinophils % (Auto) 0 % (0-10); Hematocrit 38.3 % (36.0-46.0); Hemoglobin 11.2 g/dL (12.0-16.0); Immature Granulocytes Auto 0.06 Thou/mm3 (0.00-0.00); Lymphocytes # (Auto) 0.6 Thou/mm3 (1.0-4.8); Lymphocytes % (Auto) 6 % (10-50); Mean Corpuscular HGB Conc 29.2 g/dl (31.0-37.0); Mean Corpuscular Hemoglobin 24.3 pg (25.0-35.0); Mean Corpuscular Volume 83 fL (80-100); Monocytes # (Auto) 0.9 Thou/mm3 (0.0-0.8); Monocytes % (Auto) 9 % (0-12); Neutrophils # (Auto) 8.7 Thou/mm3 (1.8-7.7); Neutrophils % (Auto) 84 % (37-80); Nucleated Red Blood Cell # 0.00 Thou/mm3 (0.00-0.00); Nucleated Red Blood Cell % 0 /100 WBC (0); Platelet Count 342 Thou/mm3 (140-440); RDW Standard Deviation 45.7 fL (36.4-46.3); Red Blood Count 4.60 Miln/mm3 (4.00-5.20); White Blood Count 10.4 Thou/mm3 (3.6-11.0)
[2025-08-01 16:19] LABS: Alanine Aminotransferase 16 U/L (10-49); Albumin, Serum 3.5 gm/dL (3.4-4.8); Albumin/Globulin Ratio 1.1 (1.2-2.2); Alkaline Phosphatase 90 U/L (46-116); Anion Gap 9 (7-16); Aspartate Amino Transferase 35 U/L (0-34); BUN/Creatinine Ratio 8 Ratio (12-20); Bilirubin,Total 0.5 mg/dL (0.3-1.2); Blood Urea Nitrogen 5 mg/dL (9-23); Calcium 9.1 mg/dL (8.3-10.6); Calcium (Corrected) 9.5 mg/dL (8.5-10.1); Carbon Dioxide 37.5 mMol/L (20.0-31.0); Chloride 97 mMol/L (98-107); Creatinine (Component) 0.6 mg/dL (0.6-1.3); Globulin 3.1 gm/dL (2.3-3.5); Glucose 136 mg/dL (74-106); Osmolality,Calculated 284 (275-295); Potassium 3.0 mMol/L (3.4-5.1); Sodium 143 mMol/L (136-145); Total Protein 6.6 gm/dL (5.7-8.2); eGFR > 60 See Note
--- NOTE | 2025-08-01 17:57 | PC.NURSE ---
Pt BIBA due to a fall from a chair while she was tying her shoes. States that she slid to the floor but is having right hip pain when ambulating. Denies hitting her head, LOC, or pain anywhere else. Pt was just discharged yesterday after being in the hospital for a stomach infection . States that some doctors say she has COPD while others state she does not. She states that she uses 2L of O2 via NC at night only. VS currently stable and pt states that she is not in pain if she is not moving. EMS states that pt was walking prior to them picking her up
--- NOTE | 2025-08-01 18:03 | PC.NURSE ---
Pt sent to ED by [facility] for a blood transfusion. Pt typically gets dialysis M/W/F but the last few times she was not able to get the full tx due to symptomatic anemia. Pt is receiving two units of blood and dialysis prior to being DC'd.
--- NOTE | 2025-08-01 18:04 | ESHP_ITS ---
<Statement entered by Mayank Gaxiola MD - 08/01/25 18:16> I saw and examined patient personally and supervised PGY 1 resident, Dr. Fry with formulating a management plan. I agree with the documentation with the exceptions as listed below. Patient is an 89-year-old female with past medical history significant for COPD on 2L home O2 as needed at night, pulmonary mass for investigation, MASLD, right ovarian mass, chronic normocytic anemia and recent history of C. difficile infection who presented today following a ground-level fall and was found to have a right subcapital hip fracture. Problem list: 1. Right subcapital hip fracture s/p mechanical fall 2. COPD on home O2 as needed 3. History of C. difficile infection 4. Chronic normocytic anemia 5. Osteoporosis Patient will be admitted for treatment and management of right subcapital hip fracture. Only gave heparin 5000 units SC x 1 for DVT prophylaxis. Patient will be placed n.p.o. after midnight for surgery by Dr. Pinedo tomorrow. Also resumed fidaxomicin 200 mg p.o. twice daily for treatment of C.Diff to complete a total of 10-day course which she was taking at home. Plan of care discussed with Attending Dr. Isabel Gaxiola MD PGY 2 Disclaimer: This note was dictated by speech recognition. Minor errors in regional account director may be present due to voice recognition software. Documentation for date of: 08/01/25 HPI History of Present Illness Chief complaint: Diarrhea History of present illness: This patient is an 89-year-old female with a history of COPD (2 L O2 at night) and hypertension who presented to [facility] ED on 08/01 for ground-level fall. Patient recollects that earlier in the day while seated and tying her shoes, she slid off of her chair while trying to get up and falls to the ground. She was accompanied by her 2 sons. She subsequently develops constant pain at the right hip rated 5/10 which prompted the family to seek emergency care for concerns of acute fracture. Patient states that while she is able to walk on her own, uses a walker too at times. She states that she carries out her ADLs independently including grocery shopping, and drives a car. Patient denies lightheadedness, dizziness. patient has some degree of cognitive impairment, and the rest of the history is collected from nurse at bedside and by chart review. Patient was recently hospitalized for chronic diarrhea and found to have C. difficile infection. She states that her diarrhea has improved and stools look firmer in texture. Patient denies chills, headaches, chest pain, shortness of breath, dysuria, and polyuria. ED course: Initial vitals were BP 148/88, HR 90, HR 18, T98.5, O2 94% on 2 L via NC Initial labs significant for WBC 10.4, Hgb 11.2, MCV 83,K+ 3.0, bicarb 37.5, CR 0.6, BUN 5, eGFR >6 Hip and pelvis x-ray was suspicious for acute right subcapital hip fracture with mild impaction. Left hip bones of the pelvis intact. Follow-up hip x-ray, showed acute impacted appearing impacted right subcapital hip fracture without dislocation. EKG showed sinus rhythm with first-degree AV block Patient was given potassium chloride PO x1. Past Surgical History: Patient denies Current Medication(s): Patient takes blood pressure medication and medication for her breathing, but is not sure what those medications are. Allergies (w/ Reactions): NKDA, codeine per chart review Family History: Noncontributory Alcohol Intake: Patient denies Tobacco/Vape Use: Patient smokes maybe 1 cigarette every other day since she was 41 years old Other Drug Use: Patient denies Recent Travel History: Patient denies Recent Sick Contacts: Patient denies Review of Systems Constitutional Comments: General: Alert and oriented x3, No apparent distress. Skin: Intact, Warm, no rashes. HEENT: Normocephalic, Atraumatic. Normal neck range of motion, Supple. Trachea midline. Respiratory: Lungs are clear to auscultation. Breath sounds are equal bilaterally with good, symmetric chest expansion. Cardiovascular: RRR, normal S1, S2, No murmurs. Distal pulses 2+ Abdomen: Abdomen non-distended, without erythema, or lesions. Normotensive bowel sounds x4. Percussion tympanic. Palpation soft, nontender in all four quadrants. No organomagely. Absent rigidity, guarding, or rebound. Musculoskeletal/Extremities: No erythema, swelling, tenderness of any joints. No edema of BLE. DP pulses +2/3 b/l. There is marked tenderness to palpation of the right hip, though no bruising, erythema, or open lesions noted about the joint, contralateral hip, knee or the back. right hip ROM is restricted secondary to pain. Strength at the same joint is severely impaired. Left hip strength 5/5 and full ROM preserved. Neurologic: NEURO: Oriented x3, cranial nerves II to XII grossly intact. Sensation intact to gross touch along C6-T1 and L2-S1 dermatomes. No focal neurologic deficits noted Psych: Thoughts linear and responses appropriate. Exam Vital Signs Temp Pulse Resp BP Pulse Ox O2 Del Method O2 Flow Rate 98.7 F 75 19 155/78 H 95 Nasal Cannula 2 08/01/25 15:38 08/01/25 15:38 08/01/25 15:38 08/01/25 15:38 08/01/25 15:38 08/01/25 15:38 08/01/25 15:38 Narrative Exam Physical Exam: General: Alert, no acute distress. Slow to respond. Skin: Warm, dry, intact. Head: Normocephalic, atraumatic. Eye: Normal conjunctiva, PERRL. Throat: Oral mucosa dry. No obvious lesions in oropharynx. Cardiovascular: Regular rate and rhythm, no murmur, +S1/S2. Respiratory: Lungs are clear to auscultation, respirations unlabored, no crackles, no wheezing. Gastrointestinal: Soft, non-distended. Tenderness to light palpation in suprapubic region, LUQ, and LLQ. No guarding or rebound tenderness. Extremities: No edema, no cyanosis, no clubbing. 2+ radial pulse bilaterally, 2+ pedal pulse bilaterally. Neuro: No focal deficits observed. Conversant, moving all extremities. No overt cerebellar signs/incoordination. Psychiatric: Cooperative, flat affect. Results: Labs 08/03/25 05:19 08/03/25 05:19 Labs: Short CBC 08/01/25 Range/Units 15:38 WBC 10.4 (3.6-11.0) Thou/mm3 Hgb 11.2 L (12.0-16.0) g/dL Hct 38.3 (36.0-46.0) % Plt Count 342 (140-440) Thou/mm3 BMP 08/01/25 15:38 Sodium 143 Potassium 3.0 L Chloride 97 L Carbon Dioxide 37.5 H BUN 5 L Creatinine 0.6 Glucose 136 H D Calcium 9.1 Liver Function 08/01/25 Range/Units 15:38 Total Bilirubin 0.5 (0.3-1.2) mg/dL AST 35 H (0-34) U/L ALT 16 (10-49) U/L Alkaline Phosphatase 90 (46-116) U/L Albumin 3.5 D (3.4-4.8) gm/dL Quality Measures Quality Measures VTE prophylaxis Advance care planning discussed with:: patient Medications Home Medications and Allergies Home Medications ?Medication ?Instructions ?Recorded ?Confirmed ?Type alprazolam 1 mg tablet (Xanax) 1 mg PO BID PRN Anxiety ##0 03/06/13 07/02/21 History alendronate 70 mg tablet 70 mg PO QWEEK 07/02/2104/14 History budesonide-formoterol HFA 160 2 puff inhalation BID 07/02/21 History mcg-4.5 mcg/actuation aerosol inhaler (Symbicort) calcium 600 mg (as 1 tab PO QDAY 07/02/2107/02 History carbonate)-vitamin D3 10 mcg (400 unit) tablet carvedilol 25 mg tablet 25 mg PO BID 07/02/21 History loratadine 10 mg tablet 10 mg PO QDAY 07/02/2107/02 History montelukast 10 mg tablet 10 mg PO QDAY 07/02/2107/02 History tiotropium bromide 18 mcg capsule 1 cap inhalation QDA Y 07/02/21 07/02/21 History with inhalation device (Spiriva with HandiHaler) Allergies Allergy/AdvReac Type Severity Reaction Status Date / Time codeine Allergy Mild Vomiting Verified 07/28/25 13:14 Visit Medications Acetaminophen (Acetaminophen 325 Mg Tablet) 650 mg PO Q6H PRN PRN Reason: Fever >100 Stop: 08/31/25 17:56 Acetaminophen (Acetaminophen 325 Mg Tablet) 650 mg PO Q6H PRN PRN Reason: PAIN SCALE 1-3 (mild Stop: 08/31/25 17:56 Hydrocodone Bitart/Acetaminophen (Hydrocodone/Apap 5/325 Tablet) 1 tab PO Q4HR PRN PRN Reason: PAIN SCALE 4-10(Mod-Sev Stop: 08/06/25 17:56 Fidaxomicin (Fidaxomicin 200 Mg Tablet (Non-Formulary)) 200 mg PO BID TANNER Stop: 08/08/25 20:59 Heparin Sodium (Porcine) (Heparin Sod Inj 5000 Unit/Ml Vial) 5,000 unit SC X1 ONE Stop: 08/01/25 20:01 Hydralazine HCl (Hydralazine Inj 20 Mg/Ml Vial) 5 mg IVP Q4H PRN PRN Reason: SBP > 170 Stop: 08/31/25 18:01 Ondansetron HCl (Ondansetron Inj 2 Mg/Ml Inj 2 Ml) 4 mg IVP Q6H PRN; Protocol PRN Reason: NAUSEA OR VOMITING Stop: 08/31/25 17:56 Discontinued Medications Potassium Chloride (Potassium Chloride 20 Meq Tabcr) 40 meq PO X1 ONE Stop: 08/01/25 16:53 Last Admin: 08/01/25 17:50 Dose: 40 meq Assessment & Plan Plan Patient is an 89-year-old female with past medical history significant for COPD on 2L home O2 as needed at night, pulmonary mass for investigation, MASLD, right ovarian mass, chronic normocytic anemia and recent history of C. difficile infection who presented to [facility] ED on 08/01 for assessment of Rt hip injury after she slid off her chair while to trying to stand up. She was admitted for surgical mgmt of subcapital hip fracture. #Right subcapital hip fracture s/p Ground-level mechanical fall #Osteoporosis Patient fell onto her Rt hip while trying to get from her chair. Hip XR showed acute impacted Rt subcapital hip fracture. Plan: -Surgery, Dr Pinedo, on board: plan for hip repair surgery tomorrow -Multimodal pain management with APAP (-11/01) and [place] (-10) -Given heparin SC 5000u x1 for PPx DVT; One dose only as patient will undergo surgery tomorrow. -Keep NPO after midnight. #hx of C. difficile colitis Patient was hospitalized recently for a weeklong watery diarrhea, fever, and leukocytosis after starting a weeklong course of Augmentin and azithromycin for pneumonia, which the patient had completed. 07/29: Positive C. difficile antigen. WBC 17.7 on previous admission meeting IDSA criteria for severe CDI. She was started on fidaxomicin on 07/29. * Continue Fidaxomicin 200 mg PO BID x 10 days (07/29 -) * Maintain contact precautions * Strict monitoring of stool output & daily abdominal exams * Trend CBC, BMP, lactate * Continue hydration; maintain euvolemia * Avoid antimotility agents * Low threshold to escalate to ICU evaluation if any signs of fulminant disease: * Hypotension, shock * Ileus (no stool, abdominal distension) * Toxic megacolon symptoms #Electrolyte abnormalities #Hypokalemia #Metabolic alkalosis Diagnostic: Sodium 143, potassium 3.0, and bicarb 37.5 in ED Hypokalemia possibly chronic condition as patient has been prescribed potassium chloride previously as well as diarrhea and losses. Metabolic alkalosis possibly secondary to calcium carbonate-vitamin D3 that has been prescribed to the patient Treatment: Monitor BMP daily Replete potassium magnesium phosphate as needed PO KCl 40mEq x1 #Pulmonary mass versus consolidation, posterior superior left lower lobe #Bilateral pleural effusions, mild to moderate Patient noted to have pulmonary mass in the posterior superior left lower lobe on CT chest/abdomen/pelvis. Not identified on chest x-ray. Patient has not had any previous imaging of the chest with CT, so unclear of the evolution of this mass. Patient was noted to have pneumonia in the past per the patient and was recently given antibiotics that she completed. Diagnostic: CT chest/abdomen/pelvis on 07/28 showed 22 mm dense consolidation versus pulmonary mass in posterior superior left lower lobe with mild to moderate bilateral pleural effusions Treatment: Patient to follow-up outpatient for monitoring Cocci serology ordered, negative #Right ovarian mass Diagnostic: CT chest/abdomen/pelvis on 07/28 shows 30 mm hypodense right ovarian mass CT abdomen/pelvis on 07/13/2025 shows 37 mm right pelvic cyst Pelvic ultrasound on 07/13/2025 shows solid left ovarian mass measuring 6.7 x 5.5 x 4.9 cm CA125 elevated. Treatment: Patient to follow-up outpatient for possible biopsy of the mass. #Anemia, normocytic Diagnostic: Hemoglobin of 11.2 with MCV of 83 Treatment: Possibly anemia of chronic disease Patient to follow-up outpatient #Thickened gallbladder wall #?Cirrhoses As shown on CT chest/abdomen/pelvis. Low suspicion for acute cholecystitis given lack of right upper quadrant pain. Treatment: Patient to follow-up outpatient #History of COPD Patient previously diagnosed with COPD, however the patient herself stated that she does not know if she has any official testing done. Per chart review, the patient has been using 2 L of supplemental oxygen at night for at least 10 years. Patient saturating 96 to 98% on 2 L of oxygen in ED, no increased work of breathing noted. Treatment: Duonebs as needed Oxygen via nasal cannula as needed resumed budesonide-formoterol #History of hypertension Patient noted to have a history of hypertension, does take antihypertensive at home, but does not know which medication doses. Treatment: Hydralazine IV 5mg PRN SBP >170 Health Maintenance: Disposition: Med Tele Diet: Regular, NPO after midnight PPx DVT: heparin SC 5000u x1 Code Status: Routine This case was discussed with my attending physician, Dr. Hall, and senior resident, Dr Gaxiola. Even though this this note was carefully revised there may still be minor errors in regional account director due to voice recognition software. Lindsey Fry DO PGY I Attending Provider Attestation/Addendum I or my resident physicians have discussed care with the ED physician and I have made the decision to admit. I have discussed and was present for the essential components of the history, physical examination, diagnosis, and treatment plan with the resident. I agree with the patient's care as documented by the resident and amended herein by me. Duncan Hall DO. Although this document has been carefully reviewed, there may still be some phonetic and other typographical errors. These errors are purely grammatical due to imperfections in the software program and should not be construed in any way to compromise the substance of the patient's medical care during this visit.
--- NOTE | 2025-08-01 20:00 | XR_ITS ---
CT of both hips, attention to the right hip:, Without contrast, with axial coronal and sagittal imaging sequences with bone and soft tissue windows Study is performed on 08/02/2025 at 6:28 a.m. CLINICAL INDICATION: Traumatic fall yesterday with right hip pain. CTDI is 4.66, DLP is 140 FINDINGS: There is multilocular very extensive osteoporosis involving the femoral head on both right and left sides. Considering the patient's very advanced age, the hip joint space is only very minimally narrowed on both right and left hips. No traumatic abnormalities are seen anywhere involving the sacrum bony pelvis or left proximal femur. On the right there is an exceedingly minimal but definite subcapital fracture. There is no major displacement although there is slight definite impaction along the lateral margin of the fracture with minimal overlapping of the lateral margin of the femoral head with the lateral femoral neck. In the lower lumbosacral spine at L4-5 there is prominent facet joint DJD on the right, there is major abnormal thickening of the ligamentum flavum, these findings produce severe spinal canal stenosis. At L5-S1 there is complete narrowing of the disc space with vacuum phenomenon. The spinal canal is normal at this level. In the lower abdomen and pelvis there is a large oval soft tissue density mass appearing to arise off the left posterior aspect of the uterine fundus, it measures 5.8 cm in maximum diameter. Its etiology cannot be determined with certainty but it is almost certainly related to a very large uterine fibroid In the right iliac fossa just below the cecum and appendix there is a large oval sharply circumscribed fluid density mass measuring a maximum of 4.6 cm in diameter and this is located farther away from the right ovary strongly suggesting that it is not of ovarian etiology. The loops of small large bowel appear all right. IMPRESSION: 1. There is a linear subcapital fracture of the right proximal femur with no major malalignment. There is slight impaction of the lateral portion of the femoral head in relationship to the femoral neck, classic for this type fracture 2. There is severe multiloculated osteoporosis involving both right and left femoral heads. 3. In the pelvis there is a large sharply circumscribed slightly lobulated mass arising off the left posterior aspect of the uterine fundus. This almost certainly relates to a uterine fibroid but I cannot be entirely certain. Therefore pelvic ultrasound is very strongly recommended. 4 in addition there is a sharply circumscribed oval fluid density mass located in the right iliac fossa just below the cecum and appendix. This is of uncertain etiology, and again, this area requires either MRI or pelvic ultrasound for further characterization
--- NOTE | 2025-08-01 20:09 | PD.ORTHCON ---
HPI Consult details Reason for consultation narrative: right hip pain History of present illness: Patient is a 89 yo female who is a baseline ambulator with walker who had a ground level fall today. She has a history of copd and is on 2 liters. She has multiple medical comorbidities. She lives at home. SHe was able to ambulate after the fall and reports the pain did not really start until they obtained xrays. Meds Home Medications and Allergies Home Medications ?Medication ?Instructions ?Recorded ?Confirmed ?Type alprazolam 1 mg tablet (Xanax) 1 mg PO BID PRN Anxiety ##0 03/06/13 07/02/21 History alendronate 70 mg tablet 70 mg PO QWEEK 07/02/21 07/02/21 History budesonide-formoterol HFA 160 2 puff inhalation BID 07/02/21 07/02/21 History mcg-4.5 mcg/actuation aerosol inhaler (Symbicort) calcium 600 mg (as 1 tab PO QDAY 07/02/21 07/02/21 History carbonate)-vitamin D3 10 mcg (400 unit) tablet carvedilol 25 mg tablet 25 mg PO BID 07/02/21 07/02/21 History loratadine 10 mg tablet 10 mg PO QDAY 07/02/21 07/02/21 History montelukast 10 mg tablet 10 mg PO QDAY 07/02/21 07/02/21 History tiotropium bromide 18 mcg capsule 1 cap inhalation QDAY 07/02/21 07/02/21 History with inhalation device (Spiriva with HandiHaler) Allergies Allergy/AdvReac Type Severity Reaction Status Date / Time codeine Allergy Mild Vomiting Verified 07/28/25 13:14 Exam Vital Signs Temp Pulse Resp BP Pulse Ox O2 Del Method O2 Flow Rate 98.5 F 70 18 144/52 H 97 Room Air 2 08/01/25 18:40 08/01/25 19:32 08/01/25 19:32 08/01/25 18:40 08/01/25 19:32 08/01/25 18:40 08/01/25 19:32 Additional findings Additional findings: Patient is in no acute distress and is cooperative with the examination today. Breathing is nonlabored. In no respiratory distress. Bilateral extremities were evaluated and demonstrates sensation intact to light touch. Palpable pedal pulses are present. No significant edema is present. No paraspinal tenderness is present. The left hip demonstrates no pain with logroll. Patient has flexion to 90 degrees, internal rotation to 20 degrees, external rotation to 20 degrees, abduction of 40 degrees, and adduction of 20 degrees. Patient has a negative stinchfield. The patient is nontender to palpation R hip is tender to palpation. Leg lengths are even. Positive logroll Results - Ortho Labs 08/01/25 15:38 08/01/25 15:38 Labs: Short CBC 08/01/25 Range/Units 15:38 WBC 10.4 (3.6-11.0) Thou/mm3 Hgb 11.2 L (12.0-16.0) g/dL Hct 38.3 (36.0-46.0) % Plt Count 342 (140-440) Thou/mm3 BMP 08/01/25 15:38 Sodium 143 Potassium 3.0 L Chloride 97 L Carbon Dioxide 37.5 H BUN 5 L Creatinine 0.6 Glucose 136 H D Calcium 9.1 Liver Function 08/01/25 Range/Units 15:38 Total Bilirubin 0.5 (0.3-1.2) mg/dL AST 35 H (0-34) U/L ALT 16 (10-49) U/L Alkaline Phosphatase 90 (46-116) U/L Albumin 3.5 D (3.4-4.8) gm/dL Imaging Xray: Additional comments: Hip xrays include ap pelvis and crosstable demonstrte a subcapital valgus impacted femoral head fracture Assessment & Plan Problem List (1) Hip fracture: Status: Acute Assessment and plan: Patient is a 89yo female with COPD and a subcapital femoral neck fracture in a baseline ambulator with walker. We will obtain a CT to confirm a fracture. We discussed
[2025-08-01] MEDS: FIDAXOMICIN 200 MG TABLET (NON-FORMULARY) PO (22:17)
[2025-08-01] MEDS: HEPARIN SOD INJ 5000 UNIT/ML VIAL SC (22:18)
[2025-08-01] MEDS: HYDROcodone/APAP 5/325 TABLET 1 TAB PO (22:24)
[2025-08-02] VITALS (12 sets, daily range): BP systolic 105–160; BP diastolic 55–87; PULSE 55–98; RESP 15–24; TEMP 36.1–36.7; O2SAT 90–100; BMI 18.1
[2025-08-02 05:31] LABS: Basophils # (Auto) 0.0 Thou/mm3 (0.0-0.2); Basophils % (Auto) 0 % (0-2.5); Eosinophils # (Auto) 0.1 Thou/mm3 (0.0-0.5); Eosinophils % (Auto) 1 % (0-10); Hematocrit 35.5 % (36.0-46.0); Hemoglobin 10.1 g/dL (12.0-16.0); Immature Granulocytes Auto 0.07 Thou/mm3 (0.00-0.00); Lymphocytes # (Auto) 1.1 Thou/mm3 (1.0-4.8); Lymphocytes % (Auto) 10 % (10-50); Mean Corpuscular HGB Conc 28.5 g/dl (31.0-37.0); Mean Corpuscular Hemoglobin 24.0 pg (25.0-35.0); Mean Corpuscular Volume 84 fL (80-100); Monocytes # (Auto) 0.9 Thou/mm3 (0.0-0.8); Monocytes % (Auto) 8 % (0-12); Neutrophils # (Auto) 8.8 Thou/mm3 (1.8-7.7); Neutrophils % (Auto) 80 % (37-80); Nucleated Red Blood Cell # 0.00 Thou/mm3 (0.00-0.00); Nucleated Red Blood Cell % 0 /100 WBC (0); Platelet Count 334 Thou/mm3 (140-440); RDW Standard Deviation 47.1 fL (36.4-46.3); Red Blood Count 4.21 Miln/mm3 (4.00-5.20); White Blood Count 10.9 Thou/mm3 (3.6-11.0)
[2025-08-02 05:41] LABS: INR 1.1 (0.9-1.3); Partial Thromboplastin Time 29.2 Seconds (22.0-36.0); Prothrombin Time 11.4 Seconds (9.0-12.2)
[2025-08-02 05:43] LABS: Alanine Aminotransferase 14 U/L (10-49); Albumin, Serum 3.2 gm/dL (3.4-4.8); Albumin/Globulin Ratio 1.1 (1.2-2.2); Alkaline Phosphatase 83 U/L (46-116); Anion Gap 7 (7-16); Aspartate Amino Transferase 27 U/L (0-34); BUN/Creatinine Ratio 10 Ratio (12-20); Bilirubin,Total 0.4 mg/dL (0.3-1.2); Blood Urea Nitrogen 6 mg/dL (9-23); Calcium 9.2 mg/dL (8.3-10.6); Calcium (Corrected) 9.8 mg/dL (8.5-10.1); Carbon Dioxide 38.9 mMol/L (20.0-31.0); Chloride 99 mMol/L (98-107); Creatinine (Component) 0.6 mg/dL (0.6-1.3); Estimated Creatinine Clearance 41.9 mL/min (>60); Globulin 2.9 gm/dL (2.3-3.5); Glucose 136 mg/dL (74-106); Magnesium 1.9 mg/dL (1.6-2.6); Osmolality,Calculated 288 (275-295); Phosphorous 2.2 mg/dL (2.4-5.1); Potassium 3.6 mMol/L (3.4-5.1); Sodium 145 mMol/L (136-145); Total Protein 6.1 gm/dL (5.7-8.2); eGFR > 60 See Note
[2025-08-02] MEDS: BUDESONIDE RT 0.25 MG/2 ML NEBU INH (07:31)
--- NOTE | 2025-08-02 10:00 | EKG_ITS ---
[facility] Test Date: 2025-08-02 Pat Name: SUELLEN OLIVAS [facility] Installation Engineer: BARB : [id number] Requested By: Sara Green Order Number: [id number] Reading MD: Sara Green Measurements Intervals [place] Rate: 89 P: 83 IA: 253 QRS: 68 QRSD: 89 T: 33 QT: 362 QTc: 441 Interpretive Statements POSSIBLE LEFT ATRIAL ENLARGEMENT POSSIBLE ANTERIOR MYOCARDIAL INFARCTION , OF INDETERMINATE AGE Compared to ECG 07/28/2025 13:45:19 Sinus rhythm no longer present First degree AV block no longer present Myocardial infarct finding still present /store/[id number]
--- NOTE | 2025-08-02 10:44 | ECHO_ITS ---
Patient Info Name: Angelina Gentile Age: 89 years : 1935 Gender: Female Ht: 150 cm Wt: 41 kg BSA: 1.30 m2 BP: 160 / 67 mmHg HR: 88 bpm Exam Date: 08/02/2025 11:38 AM Admit Date: 08/01/2025 Site: [facility] Room Number: [id number] Patient Status: I Exam Type: CA echo doppler complete Superior Court Judge: Ignacia Rodriguez Ordering Physician: Mahesh Webster Study Info Indications Cardiac clearance prior to surgery - Primary Location: [id number] Left Ventricular Outflow Tract Name Value Normal LVOT 2D LVOT Diameter 1.5 cm LVOT Doppler LVOT Peak Velocity 179 cm/s LVOT Mean Gradient 7 mmHg LVOT VTI 39 cm LVOT VTI/AV VTI Ratio 0.8 LVOT Stroke Volume 68 ml Pulmonic Valve Name Value Normal PV Doppler PV Peak Velocity 84 cm/s Mitral Valve Name Value Normal MV Doppler MV Decel Howell 870 cm/s2 MV PHT 41 ms MV Area (PHT) 5.4 cm2 4.0-5.0 MV Diastolic Function MV E Peak Velocity 123 cm/s MV A Peak Velocity 108 cm/s MV E/A 1.1 MV Annular TDI MV Septal e' Velocity 7.7 cm/s MV E/e' (Septal) 15.9 MV Lateral e' Velocity 13.3 cm/s MV E/e' (Lateral) 9.2 MV e' Average 10.51 cm/s MV E/e' (Average) 12.6 Tricuspid Valve Name Value Normal TV Regurgitation Doppler TR Peak Velocity 350 cm/s Estimated PAP/RSVP RA Pressure 8 mmHg <=5 PA Systolic Pressure 57 mmHg <36 RV Systolic Pressure 57 mmHg <36 TV Annular TDI TV Lateral Adriana s' Velocity 16.5 cm/s >=9.5 Aortic Valve Name Value Normal AV 2D/MM AV Cusp Sep (MM) 1.5 cm AV Doppler AV Peak Velocity 191 cm/s AV Mean Gradient 10 mmHg AV VTI 51 cm AV Area (Cont Eq VTI) 1.3 cm2 >=3.0 AV Area (Cont Eq Enmanuel) 1.7 cm2 AV DI (Enmanuel) 0.94 AV Regurgitation 2D LVOT Area 1.8 cm2 Ventricles Name Value Normal LV Dimensions 2D/MM IVS Diastolic Thickness (2D) 0.8 cm 0.6-0.9 LVID Diastole (2D) 3.3 cm 3.8-5.2 LVIW Diastolic Thickness (2D) 0.8 cm 0.6-0.9 LVID Systole (2D) 2.4 cm 2.2-3.5 LVOT Diameter 1.5 cm LV Mass (2D Cubed) 68.58 g 67.00-162.00 LV Mass Index (2D Cubed) 53 g/m2 43-95 Relative Wall Thickness (2D) 0.48 <=0.42 IVS/LVIW Diastolic Thickness (2D) 1.00 0.00-1.50 LV Fractional Shortening/Ejection Fraction 2D/MM LV Fractional Shortening (2D) 27 % 27-45 LV EF (2D Teichholz) 54 % RV Dimensions 2D/MM TV Lateral Adriana s' Velocity 16.5 cm/s >=9.5 Atria Name Value Normal LA Dimensions LA Volume (4C A-L) 26 ml LA Volume (BP A-L) 32 ml Left Ventricle Left ventricular chamber dimension is normal. Left ventricular systolic function is hyperdynamic with visually estimated ejection fraction of 60-65%. There is concentric remodeling noted in the left ventricle. Left ventricular segmental wall motion is normal. There is normal diastolic function in the left ventricle. Right Ventricle Right ventricular chamber dimension is normal. Right ventricular systolic function is normal. Left Atrium Left atrial chamber dimension is normal. Right Atrium Right atrial chamber dimension is normal. Aortic Valve The aortic valve is trileaflet. There is no aortic valve sclerosis. There is no aortic valve stenosis with a peak velocity of 191 cm/s, mean gradient of 10 mmHg, and aortic valve area of 1.3 cm2. There is no aortic valve regurgitation. Pulmonic Valve The pulmonic valve is normal. There is no pulmonic valve stenosis. There is no pulmonic regurgitation. Mitral Valve The mitral valve has normal leaflets. There is no mitral valve stenosis. There is trace mitral valve regurgitation. Tricuspid Valve The tricuspid valve leaflets are normal. There is no tricuspid valve stenosis. There is mild to moderate tricuspid valve regurgitation. Pulmonary hypertension, estimated pulmonary arterial systolic pressure is 57 mmHg and systemic blood pressure of 160 mmHg in systole. Pericardium/Pleural The pericardium appears normal. There is no pericardial effusion. No pleural effusion visualized. Inferior Vena Cava Normal inferior vena cava with >50% collapse upon inspiration consistent with normal right atrial pressure, 8 mmHg. Aorta The aortic measurements are indexed to age and body surface area. The aortic root at the sinus of Valsalva is not well visualized. The prox ascending aorta is not well visualized. Summary 1. Left ventricle size is normal and systolic function is hyperdynamic. Estimated ejection fraction is 60-65%. There is normal diastolic function. 2. Right ventricle chamber size is normal and systolic function is normal. 3. There is trace mitral valve regurgitation. 4. There is mild to moderate tricuspid valve regurgitation. There is mild chordal RICKY. 5. The left atrium is normal. The right atrium is normal. 6. Normal IVC with estimated RA pressure 8 mmHg. 7. Prior study from 07/03/2021. Recommendations * Based normal LV function low cardiac risk for surgery. Report Signatures Finalized by Markus Peace on 08/02/2025 12:53 PM
--- NOTE | 2025-08-02 11:40 | PC.SS ---
PASRR assessment initiated. Level 2 is has not been closed.
--- NOTE | 2025-08-02 12:07 | PD.RESCONSUL ---
HPI Data of Consult Requesting Physician: Braden Hall DO Admitting Provider: Braden Hall DO Attending Provider: Braden Hall DO Primary Care Provider: Thu Jay Consult Narrative cc:: cc: Braden Hall DO Exam Vital Signs Temp Pulse Resp BP Pulse Ox O2 Del Method O2 Flow Rate 97.2 F 77 18 160/67 H 90 L Nasal Cannula 2 08/02/25 08:00 08/02/25 08:00 08/02/25 08:00 08/02/25 08:00 08/02/25 08:00 08/02/25 04:00 08/02/25 04:00 Results Labs 08/02/25 04:57 08/02/25 04:57 Labs: Short CBC 08/01/25 08/02/25 Range/Units 15:38 04:57 WBC 10.4 10.9 (3.6-11.0) Thou/mm3 Hgb 11.2 L 10.1 L (12.0-16.0) g/dL Hct 38.3 35.5 L (36.0-46.0) % Plt Count 342 334 (140-440) Thou/mm3 BMP 08/01/25 08/02/25 15:38 04:57 Sodium 143 145 Potassium 3.0 L 3.6 D Chloride 97 L 99 Carbon Dioxide 37.5 H 38.9 H BUN 5 L 6 L Creatinine 0.6 0.6 Glucose 136 H D 136 H Calcium 9.1 9.2 Liver Function 08/01/25 08/02/25 Range/Units 15:38 04:57 Total Bilirubin 0.5 0.4 (0.3-1.2) mg/dL AST 35 H 27 (0-34) U/L ALT 16 14 (10-49) U/L Alkaline Phosphatase 90 83 (46-116) U/L Albumin 3.5 D 3.2 L (3.4-4.8) gm/dL Quality Measures Quality Measures VTE prophylaxis Medications Home Medications and Allergies Home Medications ?Medication ?Instructions ?Recorded ?Confirmed ?Type alprazolam 1 mg tablet (Xanax) 1 mg PO BID PRN Anxiety ##0 03/06/13 07/02/21 History alendronate 70 mg tablet 70 mg PO QWEEK 07/02/21 07/02/21 History budesonide-formoterol HFA 160 2 puff inhalation BID 07/02/21 07/02/21 History mcg-4.5 mcg/actuation aerosol inhaler (Symbicort) calcium 600 mg (as 1 tab PO QDAY 07/02/21 07/02/21 History carbonate)-vitamin D3 10 mcg (400 unit) tablet carvedilol 25 mg tablet 25 mg PO BID 07/02/21 07/02/21 History loratadine 10 mg tablet 10 mg PO QDAY 07/02/21 07/02/21 History montelukast 10 mg tablet 10 mg PO QDAY 07/02/21 07/02/21 History tiotropium bromide 18 mcg capsule 1 cap inhalation QDAY 07/02/21 07/02/21 History with inhalation device (Spiriva with HandiHaler) Allergies Allergy/AdvReac Type Severity Reaction Status Date / Time codeine Allergy Mild Vomiting Verified 07/28/25 13:14 Visit Medications Acetaminophen (Acetaminophen 325 Mg Tablet) 650 mg PO Q6H PRN PRN Reason: Fever >100 Stop: 08/31/25 17:56 Acetaminophen (Acetaminophen 325 Mg Tablet) 650 mg PO Q6H PRN PRN Reason: PAIN SCALE 1-3 (mild Stop: 08/31/25 17:56 Hydrocodone Bitart/Acetaminophen (Hydrocodone/Apap 5/325 Tablet) 1 tab PO Q4HR PRN PRN Reason: PAIN SCALE 4-10(Mod-Sev Stop: 08/06/25 17:56 Last Admin: 08/01/25 22:24 Dose: 1 tab Budesonide (Budesonide Rt 0.25 Mg/2 Ml Nebu) 0.25 mg INH BIDRT [facility] Stop: 09/01/25 06:59 Last Admin: 08/02/25 07:31 Dose: 0.25 mg Fidaxomicin (Fidaxomicin 200 Mg Tablet (Non-Formulary)) 200 mg PO BID [facility] Stop: 08/08/25 20:59 Last Admin: 08/02/25 08:12 Dose: Not Given Hydralazine HCl (Hydralazine Inj 20 Mg/Ml Vial) 5 mg IVP Q4H PRN PRN Reason: SBP > 170 Stop: 08/31/25 18:01 Magnesium Sulfate (Magnesium Sulfate Ivpb) 4 gm in 50 mls @ 12.5 mls/hr IV X1 ONE Stop: 08/02/25 15:53 Potassium Chloride (Kcl Ivpb) 10 meq in 100 mls @ 100 mls/hr IV Q1H TANNER Stop: 08/02/25 15:53 Ondansetron HCl (Ondansetron Inj 2 Mg/Ml Inj 2 Ml) 4 mg IVP Q6H PRN; Protocol PRN Reason: NAUSEA OR VOMITING Stop: 08/31/25 17:56 Discontinued Medications Heparin Sodium (Porcine) (Heparin Sod Inj 5000 Unit/Ml Vial) 5,000 unit SC X1 ONE Stop: 08/01/25 20:01 Last Admin: 08/01/25 22:18 Dose: 5,000 unit Potassium Chloride (Potassium Chloride 20 Meq Tabcr) 40 meq PO X1 ONE Stop: 08/01/25 16:53 Last Admin: 08/01/25 17:50 Dose: 40 meq
[2025-08-02] MEDS: POTASSIUM CHL 10 mEq IVPB 10 MEQ/100 ML BAG 100 MEQ IV ×2 (12:52→14:15)
[2025-08-02] MEDS: Magnesium Sulfate 4 GM Ivpb 4 GM/50 ML BAG IV (12:52)
--- NOTE | 2025-08-02 13:55 | PC.SS ---
SS has sent inquiry to the local SNF using [facility] and son Anthony is aware.
--- NOTE | 2025-08-02 14:24 | XR_ITS ---
EXAMINATION: Right hip AP and lateral 2 views Fluoroscopy Date and time: August 02, 2025, 1751 hours INDICATIONS: Operative reduction internal fixation hip fracture, acute subcapital hip fracture on films today FINDINGS: Operative reduction internal fixation right subcapital hip fracture Satisfactory alignment Fluoroscopy 30 seconds radiation dose 3.18 mGy IMPRESSION: Operative reduction internal fixation right subcapital hip fracture with satisfactory alignment
--- NOTE | 2025-08-02 14:44 | PD.ORTHCON ---
HPI Consult details History of present illness: Patient is a 89 yo female who is a baseline ambulator with walker who had a ground level fall today. She has a history of copd and is on 2 liters. She has multiple medical comorbidities. She lives at home. SHe was able to ambulate after the fall and reports the pain did not really start until they obtained xrays. She obtained a ct overnight Meds Home Medications and Allergies Home Medications ?Medication ?Instructions ?Recorded ?Confirmed ?Type alprazolam 1 mg tablet (Xanax) 1 mg PO BID PRN Anxiety ##0 03/06/13 07/02/21 History alendronate 70 mg tablet 70 mg PO QWEEK 07/02/21 07/02/21 History budesonide-formoterol HFA 160 2 puff inhalation BID 07/02/21 07/02/21 History mcg-4.5 mcg/actuation aerosol inhaler (Symbicort) calcium 600 mg (as 1 tab PO QDAY 07/02/21 07/02/21 History carbonate)-vitamin D3 10 mcg (400 unit) tablet carvedilol 25 mg tablet 25 mg PO BID 07/02/21 07/02/21 History loratadine 10 mg tablet 10 mg PO QDAY 07/02/21 07/02/21 History montelukast 10 mg tablet 10 mg PO QDAY 07/02/21 07/02/21 History tiotropium bromide 18 mcg capsule 1 cap inhalation QDAY 07/02/21 07/02/21 History with inhalation device (Spiriva with HandiHaler) Allergies Allergy/AdvReac Type Severity Reaction Status Date / Time codeine Allergy Mild Vomiting Verified 07/28/25 13:14 Exam Vital Signs Temp Pulse Resp BP Pulse Ox O2 Del Method O2 Flow Rate 97.5 F 91 17 133/87 H 90 L Room Air 2 08/02/25 12:00 08/02/25 12:00 08/02/25 12:00 08/02/25 12:00 08/02/25 12:00 08/02/25 12:00 08/02/25 04:00 Additional findings Additional findings: Patient is in no acute distress and is cooperative with the examination today. Breathing is nonlabored. In no respiratory distress. Bilateral extremities were evaluated and demonstrates sensation intact to light touch. Palpable pedal pulses are present. No significant edema is present. No paraspinal tenderness is present. The left hip demonstrates no pain with logroll. Patient has flexion to 90 degrees, internal rotation to 20 degrees, external rotation to 20 degrees, abduction of 40 degrees, and adduction of 20 degrees. Patient has a negative stinchfield. The patient is nontender to palpation R hip is tender to palpation. Leg lengths are even. Positive logroll Results - Ortho Labs 08/02/25 04:57 08/02/25 04:57 Labs: Short CBC 08/01/25 08/02/25 Range/Units 15:38 04:57 WBC 10.4 10.9 (3.6-11.0) Thou/mm3 Hgb 11.2 L 10.1 L (12.0-16.0) g/dL Hct 38.3 35.5 L (36.0-46.0) % Plt Count 342 334 (140-440) Thou/mm3 BMP 08/01/25 08/02/25 15:38 04:57 Sodium 143 145 Potassium 3.0 L 3.6 D Chloride 97 L 99 Carbon Dioxide 37.5 H 38.9 H BUN 5 L 6 L Creatinine 0.6 0.6 Glucose 136 H D 136 H Calcium 9.1 9.2 Liver Function 08/01/25 08/02/25 Range/Units 15:38 04:57 Total Bilirubin 0.5 0.4 (0.3-1.2) mg/dL AST 35 H 27 (0-34) U/L ALT 16 14 (10-49) U/L Alkaline Phosphatase 90 83 (46-116) U/L Albumin 3.5 D 3.2 L (3.4-4.8) gm/dL Imaging CT: Additional comments: Xrays and a ct demosntrate a valgus impacted femoral neck fracture on the right Assessment & Plan Problem List (1) Hip fracture: Status: Acute Assessment and plan: Patient is a 89yo female with COPD and a subcapital femoral neck fracture in a baseline ambulator with walker. CT and a xray both confirmed a valgus impacted femoral neck fracture. We discussed the risk of surgery clued infection, nonunion, malunion, hardware failure including screw cut out, and medical complications of surgery in general. I discussed the surgery with both the patient and her 3 sons. They would like to proceed with surgery. We would do percutaneous hip screws as fracture is not displaced - Plan for percutaneous x-rays today -N.p.o.
--- NOTE | 2025-08-02 15:06 | ESCONSULT_ITS ---
RE: SUELLEN OLIVAS : 1935 DATE OF CONSULTATION: 08/02/2025 CONSULTING PHYSICIAN: Pete Pinedo MD REASON FOR CONSULTATION: Evaluation of patient for cardiac clearance for surgery. HISTORY OF PRESENT ILLNESS: Patient is an 89-year-old female who is well known to me, who has a history of hypertension, osteoporosis, chronic obstructive lung disease, and chronic anemia. Has been doing fairly well until 08/01/2025, patient fell, and suffered a right subcapital hip fracture. Cardiac clearance was recommended. Patient has longstanding history of chronic obstructive lung disease and 2 L of nasal cannula at night, hypertension. She fell on right side of the hip when she was trying her shoes in front of her 2 sons. She lost her balance and fell on the right side. Did not lose any consciousness. No syncopal episode. Patient is clinically stable. I did evaluate her only recently in my office who underwent a complete cardiac workup because of shortness of breath. Underwent cardiac echocardiogram. Doppler study showed normal left ventricular function. Ejection fraction 70%. Nuclear scan was also normal. There was a question of atrial fibrillation, but did not have any atrial fibrillation. She already had echocardiogram during this admission which appears to have normal left ventricular function as well. She is not complaining of chest pain, shortness of breath, orthopnea, PND, allergies. Her EKG on admission showed that she has sinus rhythm, nonspecific ST changes, occasional PVCs. MEDICATIONS AT HOME: She is on: 1. Xanax p.r.n. 2. Symbicort inhaler. 3. Carvedilol 25 b.i.d. 4. Home oxygen. 5. Loratadine for allergies. 6. Montelukast 10 mg for allergies. 7. Pantoprazole 40 daily. 8. Spiriva HandiHaler. PAST MEDICAL HISTORY: Severe chronic obstructive lung disease, mild to moderate hypertension. REVIEW OF SYSTEMS: CARDIOVASCULAR: No chest pain or shortness of breath. GASTROINTESTINAL: No nausea or vomiting. CENTRAL NERVOUS SYSTEM: No neurologic symptoms. PHYSICAL EXAMINATION: GENERAL: Well nourished, thin built elderly female, alert, awake, and in no acute distress. Her weight is about 90 pounds only. Height 4 feet 11 inches. She is thin built and frail. Alert, awake, and in no acute distress. VITAL SIGNS: Blood pressure 130/80, pulse is 90, respirations 18, temperature normal. HEAD: Atraumatic and normocephalic. NECK: Supple, no JVD. CHEST AND LUNGS: Decreased breath sounds at the bases. No rales, rhonchi. Occasional wheezes. HEART: S1 and S2 regular. Sinus rhythm. ABDOMEN: Thin and soft. EXTREMITIES: No edema. GENITOURINARY: Not performed. RECTAL: Not performed. BOAT DETAILER: Normal. IMAGING DATA: The x-ray of the pelvis showed evidence of a right hip fracture with acute right subcapital fracture. CT of abdomen, chest, and pelvis was also performed that showed that the patient has a possible consolidation or mass in the posterior segment left lower lobe. A small pleural effusion seen. Liver disease also detected. Incidentally there was a 30 mm hypodense right ovarian mass also seen. Cardiac echocardiogram showed normal left ventricular function. IMPRESSION: 1. Intertrochanteric subcapital fracture of the right hip, requesting cardiac clearance. 2. Severe chronic obstructive pulmonary disease requiring oxygen. 3. Negative cardiac workup, normal cardiac echocardiogram, nuclear stress test in 08/2024. RECOMMENDATION: Based on today's clinical assessment, she has low cardiac risk for surgery. She does have COPD requiring oxygen, pulmonary precautions, otherwise giving cardiac clearance for surgery. DT: 14:36:17 TT: 15:05:00 Ref: [id number] - TID: [id number]
--- NOTE | 2025-08-02 15:33 | PC.SS ---
SS met with sons regarding patient's d/c plan. Pt is alert/oriented. Pt was admitted for Right Hip Fracture 2/2 Mechanical Fall. Son confirmed demographic and contact information is correct on facesheet. Pt resides alone. Pt ambulates using a walker. Pt was ok with ADLs. Pt was followed by Rossy PARKER prior to being hospitalized. Sons are requesting pt d/c to SNF for short term rehab and they do not have preference. SS [facility] sons [facility], [facility], and [facility]. SS also provided them with [facility] List which contains names of the SNF. Sons are aware pt requires to meet 3 midnights as in patient for Medicare. son, Anthony Sandoval is [facility] medical decision maker if she is unable. Pt followed up with PCP 2 weeks ago. D/C plan: SNF Next of Kin: Anthony Sandoval, son, phone# [phone] or [phone] or Chadd Melinda, son, phone# [phone] PCP: Dr. Misael Jay from [facility] Address: Correct on facesheet
--- NOTE | 2025-08-02 15:57 | PC.SS ---
SS received call from Zara, patient's son who states they have chosen [facility]. SS has spoken to Tulio Stearns and informed her patient's sons are requesting [facility]. Per Rae Voss, they can accept pt on .
--- NOTE | 2025-08-02 16:01 | ESOP_ITS ---
Date of Procedure 08/02/25 Pre Op Diagnosis right hip femoral neck fracture Post Op Diagnosis right hip femoral neck fracture Procedure right hip percutaneous hip screws Findings valgus impacted femoral neck fracture Procedure Description Indications: Patient is an 87-year-old female with a displaced valgus impacted femoral neck fracture on the right. She had pain after ground-level fall. We discussed the risks of the procedure including infection, screw cut out, hardware failure, conversion to a total hip replacement. He consented to son's and agreeable with the procedure. We thus recommended a right hip percutaneous hip screws Procedure in detail: The patient was prepped and draped in the usual sterile fashion. A surgical rodney eout was performed. We verified the right side was the correct side. We first obtain cafeteria assistant films. We then prepped and draped the hip on the usual sterile fashion with the Adkins table. We ensured that we padded all bony prominences. Using fluoroscopy, we inserted Steinmann pins into the hip. We first used a inverted triangle and able to do the calcar screw. We ensured that our starting point was just at the level of the lesser or above. We ensured that we had a good tip apex distance and that the screw was not out of the femoral head. We then placed 2 more Steinmann pins in an inverted triangle fashion anterior and posterior as well as superior to the initial Calcar screw. Gillian measured for the adequate screw lengths and placed each screw sequentially and ensure that we had a tight fit. We were happy With the depth of each screw And obtained final AP and lateral films to ensure no penetration of the screws Anesthesia GETA Implants Implants comments: [place] Cannulatedscrews Pathology / specimen None Pathology comment: none Estimated Blood Loss 10 Condition Stable Disposition floor Surgeon Pete Pinedo MD Surgical Staff Operation Date: 08/02/25 15:45 Case Staff ACCOUNTS PAYABLE SUPERVISOR: Sara Manriquez RN First Assistant: Angelique Palumbo
--- NOTE | 2025-08-02 16:07 | XR_ITS ---
Examination: Right hip AP, lateral, AP pelvis 3 views Technique: Hip AP lateral, AP pelvis, 3 views Exam date and time: August 02, 2025, 1738 hours INDICATIONS: Postop reduction internal fixation right hip fracture FINDINGS: Postop reduction internal fixation right subcapital hip fracture Satisfactory alignment Orthopedic hardware satisfactory position IMPRESSION: Postop reduction internal fixation right subcapital hip fracture.
--- NOTE | 2025-08-02 16:15 | SUR.PHASEI ---
1615 Patient arrived to recovery resting comfortably in bed, on oxygen 8L via oxy mask, breathing unlabored, vital signs stable, denies pain and nausea, dressing intact to right hip; chris vazquez, segundo tape, no bleeding noted, bilateral dorsalis pedis pulses present when palpated, report received from Johnie KLEIN and Sara CHOUDHURY
--- NOTE | 2025-08-02 16:58 | SUR.PHASEI ---
1658 patient transported via be to room 352 without incident, Ciera RN awaiting in room and remained at bedside with patient
[2025-08-02] MEDS: POTASSIUM CHL 10 mEq IVPB 10 MEQ/100 ML BAG 75 MEQ IV ×3 (17:30→20:28)
--- NOTE | 2025-08-02 17:50 | ESPR_ITS ---
<Statement entered by Mayank Gaxiola MD - 08/03/25 17:08> I saw and examined patient personally and supervised PGY 1 resident, Dr. Richard edwards with formulating a management plan. I agree with the documentation with the exceptions as listed below. Patient scheduled for right hip ORIF by orthopedics today. Cardiology, Dr. Richard Peace cleared patient for surgery. Plan of care discussed with Attending Dr. Ulices Gaxiola MD PGY 2 Disclaimer: This note was dictated by speech recognition. Minor errors in industrial radiographer may be present due to voice recognition software. Documentation for date of: 08/02/25 Subjective Subjective Interval history: Patient was seen and examined at bedside. No acute events took place overnight. Patient received 1 dose of [place] overnight, and her pain has stayed controlled. Plan to take the patient to CT hip for confirmation of the fracture and proceed with surgery at 3 PM Exam Vital Signs Temp Pulse Resp BP Pulse Ox O2 Del Method O2 Flow Rate 98.1 F 80 20 141/62 H 100 Room Air 2 08/02/25 16:45 08/02/25 16:45 08/02/25 16:45 08/02/25 16:45 08/02/25 16:45 08/02/25 12:00 08/02/25 16:45 Narrative Exam General: Alert, no acute distress. Slow to respond. Skin: Warm, dry, intact. Head: Normocephalic, atraumatic. Eye: Normal conjunctiva, PERRL. Throat: Oral mucosa dry. No obvious lesions in oropharynx. Cardiovascular: Regular rate and rhythm, no murmur, +S1/S2. Respiratory: Lungs are clear to auscultation, respirations unlabored, no crackles, no wheezing. Gastrointestinal: Soft, non-distended, non tender to palpation throughout. No guarding or rebound tenderness. Extremities: No edema, no cyanosis, no clubbing. 2+ radial pulse bilaterally, 2+ pedal pulse bilaterally. Tenderness noted around the Rt hip, no bruising, erythema, or open lesions noted about the Rt hip, Lt hip, Rt knee, or lower back. ROM is restricted at the Rt hip, and patient has almost no strength to move her Rt leg. Neuro: No focal deficits observed. Conversant, moving all extremities. No overt cerebellar signs/incoordination. Psychiatric: Cooperative, flat affect. Objective Labs 08/04/25 06:10 08/04/25 12:46 Labs: Laboratory Results - last 24 hr 08/02/25 04:57 WBC 10.9 RBC 4.21 Hgb 10.1 L Hct 35.5 L MCV 84 MCH 24.0 L MCHC 28.5 L RDW Std Deviation 47.1 H Plt Count 334 Neut % (Auto) 80 Lymph % (Auto) 10 Millard % (Auto) 8 Eos % (Auto) 1 Baso % (Auto) 0 Neut # (Auto) 8.8 H Lymph # (Auto) 1.1 Millard # (Auto) 0.9 H Eos # (Auto) 0.1 Baso # (Auto) 0.0 Immature Gran # (Auto) 0.07 H Absolute Nucleated RBC 0.00 Immature Gran % 1 H Nucleated RBC % 0 PT 11.4 INR 1.1 APTT 29.2 Sodium 145 Potassium 3.6 D Chloride 99 Carbon Dioxide 38.9 H Anion Gap 7 BUN 6 L Creatinine 0.6 Estim Creat Clear Calc 41.9 L eGFR > 60 BUN/Creatinine Ratio 10 L Glucose 136 H Calculated Osmolality 288 Calcium 9.2 Corrected Calcium 9.8 Phosphorus 2.2 L Magnesium 1.9 Total Bilirubin 0.4 AST 27 ALT 14 Alkaline Phosphatase 83 Total Protein 6.1 Albumin 3.2 L Globulin 2.9 Albumin/Globulin Ratio 1.1 L Quality Measures Quality Measures VTE prophylaxis Advance care planning discussed with:: patient Assessment & Plan Assessment Current Active Medications: Generic Name Dose Route Start Last Admin Trade Name Freq PRN Reason Stop Dose Admin Acetaminophen 650 mg 08/01/25 17:57 Acetaminophen 325 Mg Tablet PO 08/31/25 17:56 Q6H PRN Fever >100 Acetaminophen 650 mg 08/01/25 17:57 Acetaminophen 325 Mg Tablet PO 08/31/25 17:56 Q6H PRN PAIN SCALE 1-3 (mild Hydrocodone Bitart/Acetaminophen 1 tab 08/01/25 17:57 08/01/25 22:24 Hydrocodone/Apap 5/325 Tablet PO 08/06/25 17:56 1 tab Q4HR PRN Administration PAIN SCALE 4-10(Mod-Sev Albuterol 2 puff 08/02/25 17:06 Albuterol Inh 8 Gm INH QID PRN shortness of breath or wheezing Alendronate Sodium 70 mg 08/09/25 09:00 Alendronate Sodium 70 Mg Tablet PO 09/08/25 08:59 QWEEK TANNER Alprazolam 1 mg 08/02/25 17:06 Alprazolam 0.25 Mg Tablet PO 08/07/25 17:05 BID PRN ANXIETY Budesonide 0.25 mg 08/02/25 07:00 08/02/25 07:31 Budesonide Rt 0.25 Mg/2 Ml Nebu INH 09/01/25 06:59 0.25 mg BIDRT TANNER Administration Calcium Carbonate 600 mg 08/03/25 09:00 Calcium Carbonate 600 Mg Tablet PO 09/02/25 08:59 QDAY TANNER Carvedilol 25 mg 08/02/25 21:00 Carvedilol 12.5 Mg Tablet PO 09/01/25 20:59 BID TANNER Fidaxomicin 200 mg 08/01/25 21:00 08/02/25 08:12 Fidaxomicin 200 Mg Tablet (Non-Formulary) PO 08/08/25 20:59 Not Given BID TANNER Hydralazine HCl 5 mg 08/01/25 18:02 Hydralazine Inj 20 Mg/Ml Vial IVP 08/31/25 18:01 Q4H PRN SBP > 170 Potassium Chloride 10 meq in 100 mls @ 100 mls/hr 08/02/25 17:30 08/02/25 17:30 Kcl Ivpb IV 08/02/25 20:29 75 mls/hr Q1H TANNER Administration Loratadine 10 mg 08/03/25 09:00 Loratadine 10 Mg Tablet PO 09/02/25 08:59 QDAY TANNER Montelukast Sodium 10 mg 08/03/25 21:00 Montelukast Sodium 10 Mg Tablet PO 09/02/25 20:59 QDAY@2100 TANNER Ondansetron HCl 4 mg 08/01/25 17:57 Ondansetron Inj 2 Mg/Ml Inj 2 Ml IVP 08/31/25 17:56 Q6H PRN NAUSEA OR VOMITING Protocol Pantoprazole Sodium 40 mg 08/03/25 09:00 Pantoprazole 40 Mg Tablet PO 09/02/25 08:59 QDAY TANNER Prednisone 40 mg/ Prednisone 50 mg 08/03/25 09:00 10 mg PO 09/02/25 08:59 QDAY TANNER Fluticasone/Salmeterol 1 puff 08/02/25 21:00 Fluticasone/Salmeterol 250/50 14 Dose Inh INH 09/01/25 20:59 BID TANNER Tiotropium [place] 2 puff 08/03/25 09:00 Tiotropium Br 2.5 Mcg 120 Puff/4 Gm Inhaler INH 09/02/25 08:59 QDAY TANNER Vitamin D 400 iu 08/03/25 09:00 Cholecalciferol (Vitamin D3) 400 Iu Tablet PO 09/02/25 08:59 QDAY TANNER Plan Patient is an 89-year-old female with past medical history significant for COPD on 2L home O2 as needed at night, pulmonary mass for investigation, MASLD, right ovarian mass, chronic normocytic anemia and recent history of C. difficile infection who presented to [facility] ED on 08/01 for assessment of Rt hip injury after she slid off her chair while to trying to stand up. She was admitted for surgical mgmt of subcapital hip fracture. #Right subcapital hip fracture s/p mechanical fall #s/p orthopaedic repair surgery 08/02 #Osteoporosis Patient fell onto her Rt hip while trying to get from her chair. Hip XR showed acute impacted Rt subcapital hip fracture. Hip CT showed (1) linear subcapital fracture of the right proximal femur with no major malalignment. (2) severe multiloculated osteoporosis involving both femoral heads. (3) a large sharply circumscribed lobulated mass arising off the left posterior aspect of the uterine fundus, likely a uterine fibroid. (4) a sharply circumscribed oval fluid density mass located in the right iliac fossa, MRI or pelvic ultrasound for further characterization Echo (08/02) normal LV and RV size and fx. EF 60-65%. Moderate TR. Plan: -Surgery, Dr Pinedo, on board; patient underwent orthopedic repair of the fracture with placement of Steimann pins and Calcar screw. -Multimodal pain management with APAP (1-310) and Turin (4-10) -Given heparin SC 5000u x1 for PPx DVT; One dose only as patient will undergo surgery tomorrow. -Keep NPO after midnight. #hx of C. difficile colitis Patient was hospitalized recently for a weeklong watery diarrhea, fever, and leukocytosis after starting a weeklong course of Augmentin and azithromycin for pneumonia, which the patient had completed. 07/29: Positive C. difficile antigen. WBC 17.7 on previous admission meeting IDSA criteria for severe CDI. She was started on fidaxomicin on 07/29. * Continue Fidaxomicin 200 mg PO BID x 10 days (07/29 -) * Maintain contact precautions * Strict monitoring of stool output & daily abdominal exams * Trend CBC, BMP, lactate * Continue hydration; maintain euvolemia * Avoid antimotility agents * Low threshold to escalate to ICU evaluation if any signs of fulminant disease: * Hypotension, shock * Ileus (no stool, abdominal distension) * Toxic megacolon symptoms #History of COPD Patient previously diagnosed with COPD, however the patient herself stated that she does not know if she has any official testing done. Per chart review, the patient has been using 2 L of supplemental oxygen at night for at least 10 years. Patient saturating 96 to 98% on 2 L of oxygen in ED, no increased work of breathing noted. Treatment: Duonebs as needed Oxygen via nasal cannula as needed resumed budesonide-formoterol #Electrolyte abnormalities #Hypokalemia #Metabolic alkalosis 09/26 #COPD, hx of Diagnostic: Sodium 143, potassium 3.0, and bicarb 37.5 in ED Hypokalemia possibly chronic condition as patient has been prescribed potassium chloride previously as well as diarrhea and losses. Metabolic alkalosis possibly secondary to calcium carbonate-vitamin D3 that has been prescribed to the patient Treatment: Monitor BMP daily Replete potassium magnesium phosphate as needed PO KCl 40mEq x1 #Anemia, normocytic Diagnostic: Hemoglobin of 11.2 with MCV of 83 downtrended to 10.1. Treatment: Possibly anemia of chronic disease compounded by closed articular bleeding CTM CBC and transfuse if Hgb <7 #History of hypertension Patient noted to have a history of hypertension, does take antihypertensive at home, but does not know which medication doses. Treatment: Hydralazine IV 5mg PRN SBP >170 #Pulmonary mass versus consolidation, posterior superior left lower lobe #Bilateral pleural effusions, mild to moderate Patient noted to have pulmonary mass in the posterior superior left lower lobe on CT chest/abdomen/pelvis. Not identified on chest x-ray. Patient has not had any previous imaging of the chest with CT, so unclear of the evolution of this mass. Patient was noted to have pneumonia in the past per the patient and was recently given antibiotics that she completed. Diagnostic: CT chest/abdomen/pelvis on 07/28 showed 22 mm dense consolidation versus pulmonary mass in posterior superior left lower lobe with mild to moderate bilateral pleural effusions Treatment: Patient to follow-up outpatient for monitoring Cocci serology ordered, negative #Thickened gallbladder wall As shown on CT chest/abdomen/pelvis. Low suspicion for acute cholecystitis given lack of right upper quadrant pain. Treatment: Patient to follow-up outpatient #Irregular liver contour Possibly cirrhosis versus primary palisading disease. LFTs within normal limits. Patient denies any history of cirrhosis and denies extensive alcohol history. Treatment: Patient to follow-up outpatient #Right ovarian mass Diagnostic: CT chest/abdomen/pelvis on 07/28 shows 30 mm hypodense right ovarian mass CT abdomen/pelvis on 07/13/2025 shows 37 mm right pelvic cyst Pelvic ultrasound on 07/13/2025 shows solid left ovarian mass measuring 6.7 x 5.5 x 4.9 cm CA125 elevated. Treatment: Patient to follow-up outpatient for possible biopsy of the mass. #Anemia, normocytic Diagnostic: Hemoglobin of 11.2 with MCV of 83 downtrended to 10.1. Treatment: Possibly anemia of chronic disease compounded by closed articular bleeding CTM CBC and transfuse if Hgb <7 Health Maintenance: Disposition: Med Tele Diet: Regular, NPO after midnight PPx DVT: heparin SC 5000u x1 Code Status: Routine This case was discussed with my attending physician, Dr. Ornelas, and senior resident, Dr Gaxiola. Even though this this note was carefully revised there may still be minor errors in industrial radiographer due to voice recognition software. Lindsey Fry DO PGY I Attending Provider Attestation/Addendum 89 yr old female with COPD, hx of C diff infection, pulmonary mass, anemia, electrolyte abn, osteoporosis admitted for right hip fracture, pt had ORIF with Dr. Pinedo. Need sfollow up as outpatient for pulmoanry mass, may need repeat imaging in 1 month to check for persistent lung findings and possible biopsy, Discussed with housestaff.
[2025-08-02] MEDS: FIDAXOMICIN 200 MG TABLET (NON-FORMULARY) PO (20:46)
[2025-08-03] VITALS (14 sets, daily range): BP systolic 86–112; BP diastolic 39–70; PULSE 51–88; RESP 16–20; TEMP 36.1–36.8; O2SAT 94–100
[2025-08-03 06:13] LABS: Basophils # (Auto) 0.0 Thou/mm3 (0.0-0.2); Basophils % (Auto) 0 % (0-2.5); Eosinophils # (Auto) 0.0 Thou/mm3 (0.0-0.5); Eosinophils % (Auto) 0 % (0-10); Hematocrit 34.5 % (36.0-46.0); Hemoglobin 9.8 g/dL (12.0-16.0); Immature Granulocytes Auto 0.05 Thou/mm3 (0.00-0.00); Lymphocytes # (Auto) 0.5 Thou/mm3 (1.0-4.8); Lymphocytes % (Auto) 6 % (10-50); Mean Corpuscular HGB Conc 28.4 g/dl (31.0-37.0); Mean Corpuscular Hemoglobin 24.6 pg (25.0-35.0); Mean Corpuscular Volume 87 fL (80-100); Monocytes # (Auto) 0.1 Thou/mm3 (0.0-0.8); Monocytes % (Auto) 1 % (0-12); Neutrophils # (Auto) 7.5 Thou/mm3 (1.8-7.7); Neutrophils % (Auto) 92 % (37-80); Nucleated Red Blood Cell # 0.00 Thou/mm3 (0.00-0.00); Nucleated Red Blood Cell % 0 /100 WBC (0); Platelet Count 277 Thou/mm3 (140-440); RDW Standard Deviation 49.5 fL (36.4-46.3); Red Blood Count 3.98 Miln/mm3 (4.00-5.20); White Blood Count 8.2 Thou/mm3 (3.6-11.0)
[2025-08-03 06:46] LABS: Alanine Aminotransferase 7 U/L (10-49); Albumin, Serum 2.8 gm/dL (3.4-4.8); Albumin/Globulin Ratio 1.2 (1.2-2.2); Alkaline Phosphatase 69 U/L (46-116); Anion Gap 7 (7-16); Aspartate Amino Transferase 18 U/L (0-34); BUN/Creatinine Ratio 10 Ratio (12-20); Bilirubin,Total 0.2 mg/dL (0.3-1.2); Blood Urea Nitrogen 8 mg/dL (9-23); Calcium 8.3 mg/dL (8.3-10.6); Calcium (Corrected) 9.3 mg/dL (8.5-10.1); Carbon Dioxide 34.3 mMol/L (20.0-31.0); Chloride 101 mMol/L (98-107); Creatinine (Component) 0.8 mg/dL (0.6-1.3); Estimated Creatinine Clearance 31.4 mL/min (>60); Globulin 2.4 gm/dL (2.3-3.5); Glucose 164 mg/dL (74-106); Magnesium 2.4 mg/dL (1.6-2.6); Osmolality,Calculated 285 (275-295); Phosphorous 4.1 mg/dL (2.4-5.1); Potassium 5.3 mMol/L (3.4-5.1); Sodium 142 mMol/L (136-145); Total Protein 5.2 gm/dL (5.7-8.2); eGFR > 60 See Note
[2025-08-03] MEDS: BUDESONIDE RT 0.25 MG/2 ML NEBU INH ×2 (07:00→19:38)
[2025-08-03] MEDS: TIOTROPIUM BR 2.5 MCG 120 PUFF/4 GM INHALER INH (07:01)
[2025-08-03] MEDS: FLUTICASONE/SALMETEROL 250/50 14 DOSE INH 1 PUFF INH ×2 (07:01→19:59)
[2025-08-03] MEDS: CHOLECALCIFEROL (Vitamin D3) 400 IU TABLET PO (08:43)
[2025-08-03] MEDS: predniSONE 40 MG, predniSONE 10 MG 50 MG PO (08:43)
[2025-08-03] MEDS: FIDAXOMICIN 200 MG TABLET (NON-FORMULARY) PO ×2 (08:43→20:22)
[2025-08-03] MEDS: PANTOPRAZOLE 40 MG TABLET PO (08:44)
[2025-08-03] MEDS: ALBUTEROL RT 2.5 MG/0.5 ML NEBU INH (08:45)
[2025-08-03] MEDS: CALCIUM CARBONATE 600 MG TABLET PO (08:45)
[2025-08-03] MEDS: RINGERS LACTATED 1000 ML 1,000 ML 999 ML IV (08:47)
--- NOTE | 2025-08-03 09:55 | PC.SS ---
Follow up note: Pt had hip surgery yesterday. Pending Dr. Pinedo's recommendation. [facility] will accept pt on . Son's choice is to [facility]
[2025-08-03] MEDS: SODIUM CHLORIDE 0.9% 500 ML 500 ML 999 ML IV (11:59)
[2025-08-03] MEDS: MIDODRINE 5 MG TABLET 10 MG PO ×2 (12:00→20:00)
--- NOTE | 2025-08-03 12:09 | ESPR_ITS ---
<Statement entered by Mayank Gaxiola MD - 08/03/25 20:32> I saw and examined patient personally and supervised PGY 1 resident, Dr. Fry with formulating a management plan. I agree with the documentation with the exceptions as listed below. Patient is day 1 postoperatively ORIF with screws by orthopedics for right hip fracture. Will start on anticoagulation with [facility]. Patient will work with physical therapy today and anticipate discharge to SNF tomorrow. Plan of care discussed with Attending Dr. Fuad Gaxiola MD PGY 2 Disclaimer: This note was dictated by speech recognition. Minor errors in financial assistance specialist may be present due to voice recognition software. Documentation for date of: 08/03/25 Subjective Subjective Interval history: Patient was seen and examined at bedside. No acute events took place overnight. Pain has been controlled with Dennis overnight. Patient underwent orthopedic surgical repair of the right subcapital hip fracture successfully yesterday and is minimally symptomatic. Her strength already improving on the right side. Exam Vital Signs Temp Pulse Resp BP Pulse Ox O2 Del Method O2 Flow Rate 97.1 F 60 18 86/59 L 100 Room Air 2 08/03/25 08:00 08/03/25 12:00 08/03/25 08:48 08/03/25 12:00 08/03/25 08:48 08/03/25 08:00 08/03/25 08:48 Narrative Exam General: Alert, no acute distress. Slow to respond. Skin: Warm, dry, intact. Head: Normocephalic, atraumatic. Eye: Normal conjunctiva, PERRL. Throat: Oral mucosa dry. No obvious lesions in oropharynx. Cardiovascular: Regular rate and rhythm, no murmur, +S1/S2. Respiratory: Lungs are clear to auscultation, respirations unlabored, no crackles, no wheezing. Gastrointestinal: Soft, non-distended, non tender to palpation throughout. No guarding or rebound tenderness. Extremities: No edema, no cyanosis, no clubbing. 2+ radial pulse bilaterally, 2+ pedal pulse bilaterally. Tenderness noted around the Rt hip, no bruising, erythema, or open lesions noted about the Rt hip, Lt hip, Rt knee, or lower back. ROM is restricted at the Rt hip, and patient has improved strength 4/5 to move her Rt leg. Sensation intact to gross touch in BLE dermatomes. DP and PT pulses +2/3 b/l. Neuro: No focal deficits observed. Conversant, moving all extremities. No overt cerebellar signs/incoordination. Psychiatric: Cooperative, flat affect. Objective Labs 08/04/25 06:10 08/04/25 06:10 Labs: Laboratory Results - last 24 hr 08/03/25 05:19 WBC 8.2 RBC 3.98 L Hgb 9.8 L Hct 34.5 L MCV 87 MCH 24.6 L MCHC 28.4 L RDW Std Deviation 49.5 H Plt Count 277 D Neut % (Auto) 92 H Lymph % (Auto) 6 L [place] % (Auto) 1 Eos % (Auto) 0 Baso % (Auto) 0 Neut # (Auto) 7.5 Lymph # (Auto) 0.5 L [place] # (Auto) 0.1 Eos # (Auto) 0.0 Baso # (Auto) 0.0 Immature Gran # (Auto) 0.05 H Absolute Nucleated RBC 0.00 Immature Gran % 1 H Nucleated RBC % 0 Sodium 142 Potassium 5.3 H D Chloride 101 Carbon Dioxide 34.3 H Anion Gap 7 BUN 8 L Creatinine 0.8 Estim Creat Clear Calc 31.4 L eGFR > 60 BUN/Creatinine Ratio 10 L Glucose 164 H Calculated Osmolality 285 Calcium 8.3 Corrected Calcium 9.3 Phosphorus 4.1 Magnesium 2.4 Total Bilirubin 0.2 L AST 18 ALT 7 L Alkaline Phosphatase 69 Total Protein 5.2 L Albumin 2.8 L Globulin 2.4 Albumin/Globulin Ratio 1.2 Quality Measures Quality Measures VTE prophylaxis Advance care planning discussed with:: patient Assessment & Plan Assessment Current Active Medications: Generic Name Dose Route Start Last Admin Trade Name Freq PRN Reason Stop Dose Admin Acetaminophen 650 mg 08/01/25 17:57 Acetaminophen 325 Mg Tablet PO 08/31/25 17:56 Q6H PRN Fever >100 Acetaminophen 650 mg 08/01/25 17:57 Acetaminophen 325 Mg Tablet PO 08/31/25 17:56 Q6H PRN PAIN SCALE 1-3 (mild Hydrocodone Bitart/Acetaminophen 1 tab 08/01/25 17:57 08/01/25 22:24 Hydrocodone/Apap 5/325 Tablet PO 08/06/25 17:56 1 tab Q4HR PRN Administration PAIN SCALE 4-10(Mod-Sev Albuterol 2 puff 08/02/25 17:06 Albuterol Inh 8 Gm INH QID PRN shortness of breath or wheezing Alendronate Sodium 70 mg 08/09/25 09:00 Alendronate Sodium 70 Mg Tablet PO 09/08/25 08:59 QWEEK TANNER Alprazolam 1 mg 08/02/25 17:06 Alprazolam 0.25 Mg Tablet PO 08/07/25 17:05 BID PRN ANXIETY Budesonide 0.25 mg 08/02/25 07:00 08/03/25 07:00 Budesonide Rt 0.25 Mg/2 Ml Nebu INH 09/01/25 06:59 0.25 mg BIDRT TANNER Administration Calcium Carbonate 600 mg 08/03/25 09:00 08/03/25 08:45 Calcium Carbonate 600 Mg Tablet PO 09/02/25 08:59 600 mg QDAY TANNER Administration Carvedilol 25 mg 08/02/25 21:00 08/03/25 08:44 Carvedilol 12.5 Mg Tablet PO 09/01/25 20:59 25 mg BID TANNER Administration Fidaxomicin 200 mg 08/01/25 21:00 08/03/25 08:43 Fidaxomicin 200 Mg Tablet (Non-Formulary) PO 08/08/25 20:59 200 mg BID TANNER Administration Hydralazine HCl 5 mg 08/01/25 18:02 Hydralazine Inj 20 Mg/Ml Vial IVP 08/31/25 18:01 Q4H PRN SBP > 170 Sodium Chloride 500 mls @ 999 mls/hr 08/03/25 11:55 08/03/25 11:59 Ns IV 08/03/25 12:25 999 mls/hr .Q31M ONE Administration Loratadine 10 mg 08/03/25 09:00 08/03/25 08:44 Loratadine 10 Mg Tablet PO 09/02/25 08:59 10 mg QDAY TANNER Administration Montelukast Sodium 10 mg 08/03/25 21:00 Montelukast Sodium 10 Mg Tablet PO 09/02/25 20:59 QDAY@2100 TANNER Ondansetron HCl 4 mg 08/01/25 17:57 Ondansetron Inj 2 Mg/Ml Inj 2 Ml IVP 08/31/25 17:56 Q6H PRN NAUSEA OR VOMITING Protocol Pantoprazole Sodium 40 mg 08/03/25 09:00 08/03/25 08:44 Pantoprazole 40 Mg Tablet PO 09/02/25 08:59 40 mg QDAY TANNER Administration Prednisone 40 mg/ Prednisone 50 mg 08/03/25 09:00 08/03/25 08:43 10 mg PO 09/02/25 08:59 50 mg QDAY TANNER Administration Fluticasone/Salmeterol 1 puff 08/02/25 21:00 08/03/25 07:01 Fluticasone/Salmeterol 250/50 14 Dose Inh INH 09/01/25 20:59 1 puff BID TANNER Administration Sodium Chloride 3 ml 08/03/25 08:26 Sodium Chloride Rt [place] 0.9% 3 Ml Nebu INH 09/02/25 08:25 PRN PRN SOLN Tiotropium [place] 2 puff 08/03/25 09:00 08/03/25 07:01 Tiotropium Br 2.5 Mcg 120 Puff/4 Gm Inhaler INH 09/02/25 08:59 2 puff QDAY TANNER Administration Vitamin D 400 iu 08/03/25 09:00 08/03/25 08:43 Cholecalciferol (Vitamin D3) 400 Iu Tablet PO 09/02/25 08:59 400 iu QDAY TANNER Administration Plan Patient is an 89-year-old female with past medical history significant for COPD on 2L home O2 as needed at night, pulmonary mass for investigation, MASLD, right ovarian mass, chronic normocytic anemia and recent history of C. difficile infection who presented to [facility] ED on 08/01 for assessment of Rt hip injury after she slid off her chair while to trying to stand up. She was admitted for surgical mgmt of subcapital hip fracture. #Right subcapital hip fracture s/p mechanical fall #s/p orthopaedic repair surgery 08/02 #Osteoporosis Patient fell onto her Rt hip while trying to get from her chair. Hip XR showed acute impacted Rt subcapital hip fracture. Hip CT showed (1) linear subcapital fracture of the right proximal femur with no major malalignment. (2) severe multiloculated osteoporosis involving both femoral heads. (3) a large sharply circumscribed lobulated mass arising off the left posterior aspect of the uterine fundus, likely a uterine fibroid. (4) a sharply circumscribed oval fluid density mass located in the right iliac fossa, MRI or pelvic ultrasound for further characterization Echo (08/02) normal LV and RV size and fx. EF 60-65%. Moderate TR. 08/03: XR Hip and pelvis Plan: -Surgery, Dr Pinedo, on board; patient underwent orthopedic repair of the fracture with placement of Steimann pins and Calcar screw. -Multimodal pain management with APAP (-11/01) and Dennis (12-02) -Given heparin SC 5000u x1 for PPx DVT; One dose only as patient will undergo surgery tomorrow. -Keep NPO after midnight. #hx of C. difficile colitis Patient was hospitalized recently for a weeklong watery diarrhea, fever, and leukocytosis after starting a weeklong course of Augmentin and azithromycin for pneumonia, which the patient had completed. 07/29: Positive C. difficile antigen. WBC 17.7 on previous admission meeting IDSA criteria for severe CDI. She was started on fidaxomicin on 07/29. * Continue Fidaxomicin 200 mg PO BID x 10 days (07/29 - 08/07) * Maintain contact precautions * Strict monitoring of stool output & daily abdominal exams * Trend CBC, BMP, lactate * Continue hydration; maintain euvolemia * Avoid antimotility agents * Low threshold to escalate to ICU evaluation if any signs of fulminant disease: * Hypotension, shock * Ileus (no stool, abdominal distension) * Toxic megacolon symptoms #History of COPD Patient previously diagnosed with COPD, however the patient herself stated that she does not know if she has any official testing done. Per chart review, the patient has been using 2 L of supplemental oxygen at night for at least 10 years. Patient saturating 96 to 98% on 2 L of oxygen in ED, no increased work of breathing noted. Treatment: Duonebs as needed Oxygen via nasal cannula as needed resumed budesonide-formoterol #Electrolyte abnormalities #Hypokalemia #Metabolic alkalosis / #COPD, hx of Diagnostic: Sodium 143, potassium 3.0, and bicarb 37.5 in ED Hypokalemia possibly chronic condition as patient has been prescribed potassium chloride previously as well as diarrhea and losses. Metabolic alkalosis possibly secondary to calcium carbonate-vitamin D3 that has been prescribed to the patient Treatment: Monitor BMP daily Replete potassium magnesium phosphate as needed PO KCl 40mEq x1 #Anemia, normocytic Diagnostic: Hemoglobin of 11.2 with MCV of 83 downtrended to 10.1. Treatment: Possibly anemia of chronic disease compounded by closed articular bleeding CTM CBC and transfuse if Hgb <7 #History of hypertension Patient noted to have a history of hypertension, does take antihypertensive at home, but does not know which medication doses. Treatment: Hydralazine IV 5mg PRN SBP >170 #Pulmonary mass versus consolidation, posterior superior left lower lobe #Bilateral pleural effusions, mild to moderate Patient noted to have pulmonary mass in the posterior superior left lower lobe on CT chest/abdomen/pelvis. Not identified on chest x-ray. Patient has not had any previous imaging of the chest with CT, so unclear of the evolution of this mass. Patient was noted to have pneumonia in the past per the patient and was recently given antibiotics that she completed. Diagnostic: CT chest/abdomen/pelvis on 07/28 showed 22 mm dense consolidation versus pulmonary mass in posterior superior left lower lobe with mild to moderate bilateral pleural effusions Treatment: Patient to follow-up outpatient for monitoring Cocci serology ordered, negative #Thickened gallbladder wall As shown on CT chest/abdomen/pelvis. Low suspicion for acute cholecystitis given lack of right upper quadrant pain. Treatment: Patient to follow-up outpatient #Irregular liver contour Possibly cirrhosis versus primary palisading disease. LFTs within normal limits. Patient denies any history of cirrhosis and denies extensive alcohol history. Treatment: Patient to follow-up outpatient #Right ovarian mass Diagnostic: CT chest/abdomen/pelvis on 07/28 shows 30 mm hypodense right ovarian mass CT abdomen/pelvis on 07/13/2025 shows 37 mm right pelvic cyst Pelvic ultrasound on 07/13/2025 shows solid left ovarian mass measuring 6.7 x 5.5 x 4.9 cm CA125 elevated. Treatment: Patient to follow-up outpatient for possible biopsy of the mass. #Anemia, normocytic Diagnostic: Hemoglobin of 11.2 with MCV of 83 downtrended to 10.1. Treatment: Possibly anemia of chronic disease compounded by closed articular bleeding CTM CBC and transfuse if Hgb <7 Health Maintenance: Disposition: Med Tele Diet: Regular, NPO after midnight PPx DVT: Eliquis 2.5mg bid Code Status: Routine This case was discussed with my attending physician, Dr. Merida, and senior resident, Dr Gaxiola. Even though this this note was carefully revised there may still be minor errors in financial assistance specialist due to voice recognition software. Lindsey Fry DO PGY I Attending Provider Attestation/Addendum I reviewed labs, imaging, EKG, home medications and prior available records. Face to face evaluation was performed by me. I have personally examined the patient and discussed assessment and plan with the IM team. I reviewed the resident note and agree with the plan with exceptions as below. Right subcapital femoral fracture Mechanical fall COPD without exacerbation Acute hypotension History of C. difficile colitis Pulmonary mass Status post OR Management of pain as needed PT evaluation Continue inhalation treatment Continue fidaxomicin Outpatient follow-up for evaluation for biopsy
[2025-08-03] MEDS: MONTELUKAST SODIUM 10 MG TABLET PO (20:22)
[2025-08-03] MEDS: APIXABAN 2.5 MG TABLET PO (20:22)
--- NOTE | 2025-08-03 22:06 | PC.NURSE ---
MD Garcia made aware of BP 98/45, new order made to give LR 500cc bolus and repeat BP after the bolus.
[2025-08-03] MEDS: RINGERS LACTATED 500 ML 500 ML 999 ML IV (22:12)
--- NOTE | 2025-08-03 23:34 | PC.NURSE ---
MD Garcia made aware of BP 98/55 with a MAP of 67, no new order made at this time, will continue to monitor.
[2025-08-04] VITALS (12 sets, daily range): BP systolic 98–116; BP diastolic 43–59; PULSE 53–74; RESP 16–18; TEMP 36.1–37.1; O2SAT 95–99; BMI 12.0
[2025-08-04 06:25] LABS: Basophils # (Auto) 0.0 Thou/mm3 (0.0-0.2); Basophils % (Auto) 0 % (0-2.5); Eosinophils # (Auto) 0.0 Thou/mm3 (0.0-0.5); Eosinophils % (Auto) 0 % (0-10); Hematocrit 34.2 % (36.0-46.0); Hemoglobin 9.5 g/dL (12.0-16.0); Immature Granulocytes Auto 0.13 Thou/mm3 (0.00-0.00); Lymphocytes # (Auto) 0.7 Thou/mm3 (1.0-4.8); Lymphocytes % (Auto) 4 % (10-50); Mean Corpuscular HGB Conc 27.8 g/dl (31.0-37.0); Mean Corpuscular Hemoglobin 24.1 pg (25.0-35.0); Mean Corpuscular Volume 87 fL (80-100); Monocytes # (Auto) 0.9 Thou/mm3 (0.0-0.8); Monocytes % (Auto) 6 % (0-12); Neutrophils # (Auto) 13.9 Thou/mm3 (1.8-7.7); Neutrophils % (Auto) 89 % (37-80); Nucleated Red Blood Cell # 0.00 Thou/mm3 (0.00-0.00); Nucleated Red Blood Cell % 0 /100 WBC (0); Platelet Count 374 Thou/mm3 (140-440); RDW Standard Deviation 51.2 fL (36.4-46.3); Red Blood Count 3.95 Miln/mm3 (4.00-5.20); White Blood Count 15.6 Thou/mm3 (3.6-11.0)
[2025-08-04 07:10] LABS: Alanine Aminotransferase < 7 U/L (10-49); Albumin, Serum 2.9 gm/dL (3.4-4.8); Albumin/Globulin Ratio 1.3 (1.2-2.2); Alkaline Phosphatase 72 U/L (46-116); Anion Gap 5 (7-16); Aspartate Amino Transferase 18 U/L (0-34); BUN/Creatinine Ratio 23 Ratio (12-20); Bilirubin,Total < 0.2 mg/dL (0.3-1.2); Blood Urea Nitrogen 27 mg/dL (9-23); Calcium 8.7 mg/dL (8.3-10.6); Calcium (Corrected) 9.6 mg/dL (8.5-10.1); Carbon Dioxide 34.4 mMol/L (20.0-31.0); Chloride 102 mMol/L (98-107); Creatinine (Component) 1.2 mg/dL (0.6-1.3); Estimated Creatinine Clearance 20.9 mL/min (>60); Globulin 2.3 gm/dL (2.3-3.5); Glucose 143 mg/dL (74-106); Magnesium 2.2 mg/dL (1.6-2.6); Osmolality,Calculated 288 (275-295); Phosphorous 3.6 mg/dL (2.4-5.1); Potassium 5.5 mMol/L (3.4-5.1); Sodium 141 mMol/L (136-145); Total Protein 5.2 gm/dL (5.7-8.2); eGFR 44 See Note
[2025-08-04] MEDS: FIDAXOMICIN 200 MG TABLET (NON-FORMULARY) PO ×2 (08:58→20:24)
[2025-08-04] MEDS: SOD POLYSTYRENE SULFON SUSP 15 GM/60 ML BTL PO (08:58)
[2025-08-04] MEDS: APIXABAN 2.5 MG TABLET PO ×2 (08:59→20:25)
[2025-08-04] MEDS: PANTOPRAZOLE 40 MG TABLET PO (08:59)
[2025-08-04] MEDS: CHOLECALCIFEROL (Vitamin D3) 400 IU TABLET PO (08:59)
[2025-08-04] MEDS: CALCIUM CARBONATE 600 MG TABLET PO (08:59)
[2025-08-04] MEDS: TIOTROPIUM BR 2.5 MCG 120 PUFF/4 GM INHALER INH (09:24)
[2025-08-04] MEDS: ALBUTEROL RT 2.5 MG/0.5 ML NEBU INH (09:24)
[2025-08-04] MEDS: FLUTICASONE/SALMETEROL 250/50 14 DOSE INH 1 PUFF INH ×2 (09:24→19:11)
[2025-08-04] MEDS: BUDESONIDE RT 0.25 MG/2 ML NEBU INH ×2 (09:24→19:11)
[2025-08-04] MEDS: RINGERS LACTATED 1000 ML 1,000 ML 500 ML IV (10:07)
--- NOTE | 2025-08-04 12:03 | ESPR_ITS ---
Documentation for date of: 08/04/25 Subjective Subjective Interval history: Patient was seen and examined at bedside. No acute events took place overnight. Pain has been controlled, patient has not needed pain meds. Patient underwent orthopedic surgical repair of the right subcapital hip fracture successfully on 08/02 and is minimally symptomatic. Her strength already improving on the right side. Patient has an appetite, nursing noted underlying dysphagia, diet ordered in the form of Pureed. Patient was going to be discharged today, however, as she has active C diff, a private room at [facility] will not become available until the weekend. Exam Vital Signs Temp Pulse Resp BP Pulse Ox O2 Del Method O2 Flow Rate 97.0 F 53 L 16 100/45 L 95 Nasal Cannula 2 08/04/25 08:00 08/04/25 09:25 08/04/25 09:25 08/04/25 09:17 08/04/25 09:25 08/04/25 08:00 08/04/25 09:25 Narrative Exam General: Alert, no acute distress. Slow to respond. Skin: Warm, dry, intact. Head: Normocephalic, atraumatic. Eye: Normal conjunctiva, PERRL. Throat: Oral mucosa dry. No obvious lesions in oropharynx. Cardiovascular: Regular rate and rhythm, no murmur, +S1/S2. Respiratory: Lungs are clear to auscultation, respirations unlabored, no crackles, no wheezing. Gastrointestinal: Soft, non-distended, non tender to palpation throughout. No guarding or rebound tenderness. Extremities: No edema, no cyanosis, no clubbing. 2+ radial pulse bilaterally, 2+ pedal pulse bilaterally. Tenderness noted around the Rt hip, no bruising, erythema, or open lesions noted about the Rt hip, Lt hip, Rt knee, or lower back. ROM is restricted at the Rt hip, and patient has improved strength 4/5 to move her Rt leg. Sensation intact to gross touch in BLE dermatomes. DP and PT pulses +2/3 b/l. Neuro: No focal deficits observed. Conversant, moving all extremities. No overt cerebellar signs/incoordination. Psychiatric: Cooperative, flat affect. Objective Labs 08/04/25 06:10 08/04/25 12:46 Labs: Laboratory Results - last 24 hr 08/04/25 06:10 WBC 15.6 H D RBC 3.95 L Hgb 9.5 L Hct 34.2 L MCV 87 MCH 24.1 L MCHC 27.8 L RDW Std Deviation 51.2 H Plt Count 374 D Neut % (Auto) 89 H Lymph % (Auto) 4 L [place] % (Auto) 6 Eos % (Auto) 0 Baso % (Auto) 0 Neut # (Auto) 13.9 H Lymph # (Auto) 0.7 L [place] # (Auto) 0.9 H Eos # (Auto) 0.0 Baso # (Auto) 0.0 Immature Gran # (Auto) 0.13 H Absolute Nucleated RBC 0.00 Immature Gran % 1 H Nucleated RBC % 0 Sodium 141 Potassium 5.5 H Chloride 102 Carbon Dioxide 34.4 H Anion Gap 5 L BUN 27 H Creatinine 1.2 Estim Creat Clear Calc 20.9 L eGFR 44 L BUN/Creatinine Ratio 23 H Glucose 143 H Calculated Osmolality 288 Calcium 8.7 Corrected Calcium 9.6 Phosphorus 3.6 Magnesium 2.2 Total Bilirubin < 0.2 L AST 18 ALT < 7 L Alkaline Phosphatase 72 Total Protein 5.2 L Albumin 2.9 L Globulin 2.3 Albumin/Globulin Ratio 1.3 Quality Measures Quality Measures VTE prophylaxis Advance care planning discussed with:: patient Assessment & Plan Assessment Current Active Medications: Generic Name Dose Route Start Last Admin Trade Name Freq PRN Reason Stop Dose Admin Acetaminophen 650 mg 08/01/25 17:57 Acetaminophen 325 Mg Tablet PO 08/31/25 17:56 Q6H PRN Fever >100 Acetaminophen 650 mg 08/01/25 17:57 Acetaminophen 325 Mg Tablet PO 08/31/25 17:56 Q6H PRN PAIN SCALE 1-3 (mild Hydrocodone Bitart/Acetaminophen 1 tab 08/01/25 17:57 08/01/25 22:24 Hydrocodone/Apap 5/325 Tablet PO 08/06/25 17:56 1 tab Q4HR PRN Administration PAIN SCALE 4-10(Mod-Sev Albuterol 2 puff 08/02/25 17:06 Albuterol Inh 8 Gm INH QID PRN shortness of breath or wheezing Alendronate Sodium 70 mg 08/09/25 09:00 Alendronate Sodium 70 Mg Tablet PO 09/08/25 08:59 QWEEK TANNER Alprazolam 1 mg 08/02/25 17:06 Alprazolam 0.25 Mg Tablet PO 08/07/25 17:05 BID PRN ANXIETY Apixaban 2.5 mg 08/03/25 21:00 08/04/25 08:59 Apixaban 2.5 Mg Tablet PO 08/24/25 20:59 2.5 mg BID TANNER Administration Budesonide 0.25 mg 08/02/25 07:00 08/04/25 09:24 Budesonide Rt 0.25 Mg/2 Ml Nebu INH 09/01/25 06:59 0.25 mg BIDRT TANNER Administration Calcium Carbonate 600 mg 08/03/25 09:00 08/04/25 08:59 Calcium Carbonate 600 Mg Tablet PO 09/02/25 08:59 600 mg QDAY TANNER Administration Fidaxomicin 200 mg 08/01/25 21:00 08/04/25 08:58 Fidaxomicin 200 Mg Tablet (Non-Formulary) PO 08/08/25 20:59 200 mg BID TANNER Administration Hydralazine HCl 5 mg 08/01/25 18:02 Hydralazine Inj 20 Mg/Ml Vial IVP 08/31/25 18:01 Q4H PRN SBP > 170 Loratadine 10 mg 08/03/25 09:00 08/04/25 08:59 Loratadine 10 Mg Tablet PO 09/02/25 08:59 10 mg QDAY TANNER Administration Montelukast Sodium 10 mg 08/03/25 21:00 08/03/25 20:22 Montelukast Sodium 10 Mg Tablet PO 09/02/25 20:59 10 mg QDAY@2100 TANNER Administration Ondansetron HCl 4 mg 08/01/25 17:57 Ondansetron Inj 2 Mg/Ml Inj 2 Ml IVP 08/31/25 17:56 Q6H PRN NAUSEA OR VOMITING Protocol Pantoprazole Sodium 40 mg 08/03/25 09:00 08/04/25 08:59 Pantoprazole 40 Mg Tablet PO 09/02/25 08:59 40 mg QDAY TANNER Administration Prednisone 40 mg/ Prednisone 50 mg 08/03/25 09:00 08/03/25 08:43 10 mg PO 09/02/25 08:59 50 mg On Hold: 08/04/25 08:15 QDAY TANNER Administration Fluticasone/Salmeterol 1 puff 08/02/25 21:00 08/04/25 09:24 Fluticasone/Salmeterol 250/50 14 Dose Inh INH 09/01/25 20:59 1 puff BID TANNER Administration Sodium Chloride 3 ml 08/03/25 08:26 Sodium Chloride Rt [place] 0.9% 3 Ml Nebu INH 09/02/25 08:25 PRN PRN SOLN Sodium Chloride 3 ml 08/04/25 08:22 Sodium Chloride Rt [place] 0.9% 3 Ml Nebu INH 09/03/25 08:21 PRN PRN SOLN Tiotropium [place] 2 puff 08/03/25 09:00 08/04/25 09:24 Tiotropium Br 2.5 Mcg 120 Puff/4 Gm Inhaler INH 09/02/25 08:59 2 puff QDAY TANNER Administration Vitamin D 400 iu 08/03/25 09:00 08/04/25 08:59 Cholecalciferol (Vitamin D3) 400 Iu Tablet PO 09/02/25 08:59 400 iu QDAY TANNER Administration Plan Patient is an 89-year-old female with past medical history significant for COPD on 2L home O2 as needed at night, pulmonary mass for investigation, MASLD, right ovarian mass, chronic normocytic anemia and recent history of C. difficile infection who presented to [facility] on 08/01 for assessment of Rt hip injury after she slid off her chair while to trying to stand up. She was admitted for surgical mgmt of subcapital hip fracture. #Right subcapital hip fracture s/p mechanical fall #s/p orthopaedic repair surgery 08/02 #Osteoporosis Patient fell onto her Rt hip while trying to get from her chair. Hip XR showed acute impacted Rt subcapital hip fracture. Hip CT showed (1) linear subcapital fracture of the right proximal femur with no major malalignment. (2) severe multiloculated osteoporosis involving both femoral heads. (3) a large sharply circumscribed lobulated mass arising off the left posterior aspect of the uterine fundus, likely a uterine fibroid. (4) a sharply circumscribed oval fluid density mass located in the right iliac fossa, MRI or pelvic ultrasound for further characterization Echo (08/02) normal LV and RV size and fx. EF 60-65%. Moderate TR. 08/03: XR Hip and pelvis patient underwent orthopedic repair of the fracture with placement of Steimann pins and Calcar screw on 12/9. Plan: -Diet advanced to cardiac -Eliquis 2.5mg bid -PT to work with the patient for functional improvement -Multimodal pain management with APAP (-11/01) and [place] (12-02) #hx of C. difficile colitis Patient was hospitalized recently for a weeklong watery diarrhea, fever, and leukocytosis after starting a weeklong course of Augmentin and azithromycin for pneumonia, which the patient had completed. 07/29: Positive C. difficile antigen. WBC 17.7 on previous admission meeting IDSA criteria for severe CDI. She was started on fidaxomicin on 07/29. * Continue Fidaxomicin 200 mg PO BID x 10 days (07/29 - 08/07) * Maintain contact precautions * Strict monitoring of stool output & daily abdominal exams * Trend CBC, BMP, lactate * Continue hydration; maintain euvolemia * Avoid antimotility agents * Low threshold to escalate to ICU evaluation if any signs of fulminant disease: * Hypotension, shock * Ileus (no stool, abdominal distension) * Toxic megacolon symptoms #Electrolyte abnormalities #Hyperkalemia #Metabolic alkalosis 2/2 #COPD, hx of Diagnostic: Sodium 143, potassium 3.0, and bicarb 37.5 in ED Hypokalemia possibly chronic condition as patient has been prescribed potassium chloride previously as well as diarrhea and losses. Metabolic alkalosis possibly secondary to calcium carbonate-vitamin D3 that has been prescribed to the patient. Another probable cause is hx of dyspnea 2/2 COPD, the related acidosis, and appropriate metabolic compensation. K+ this AM was 5.5. Treatment: Monitor BMP daily Given Kayexalate 15g Albuterol 0.5mg breathing treatment x1 #History of COPD Patient previously diagnosed with COPD, however the patient herself stated that she does not know if she has any official testing done. Per chart review, the patient has been using 2 L of supplemental oxygen at night for at least 10 years. Patient saturating 96 to 98% on 2 L of oxygen in ED, no increased work of breathing noted. Treatment: Duonebs as needed Oxygen via nasal cannula as needed resumed budesonide-formoterol #Anemia, normocytic Diagnostic: Hemoglobin of 11.2 with MCV of 83 downtrended to 10.1. Treatment: Possibly anemia of chronic disease compounded by closed articular bleeding CTM CBC and transfuse if Hgb <7 #History of hypertension Patient noted to have a history of hypertension, does take antihypertensive at home, but does not know which medication doses. Treatment: Hydralazine IV 5mg PRN SBP >170 #Pulmonary mass versus consolidation, posterior superior left lower lobe #Bilateral pleural effusions, mild to moderate Patient noted to have pulmonary mass in the posterior superior left lower lobe on CT chest/abdomen/pelvis. Not identified on chest x-ray. Patient has not had any previous imaging of the chest with CT, so unclear of the evolution of this mass. Patient was noted to have pneumonia in the past per the patient and was recently given antibiotics that she completed. Diagnostic: CT chest/abdomen/pelvis on 07/28 showed 22 mm dense consolidation versus pulmonary mass in posterior superior left lower lobe with mild to moderate bilateral pleural effusions Treatment: Patient to follow-up outpatient for monitoring Cocci serology ordered, negative #Thickened gallbladder wall As shown on CT chest/abdomen/pelvis. Low suspicion for acute cholecystitis given lack of right upper quadrant pain. Treatment: Patient to follow-up outpatient #Irregular liver contour Possibly cirrhosis versus primary palisading disease. LFTs within normal limits. Patient denies any history of cirrhosis and denies extensive alcohol history. Treatment: Patient to follow-up outpatient #Right ovarian mass Diagnostic: CT chest/abdomen/pelvis on 07/28 shows 30 mm hypodense right ovarian mass CT abdomen/pelvis on 07/13/2025 shows 37 mm right pelvic cyst Pelvic ultrasound on 07/13/2025 shows solid left ovarian mass measuring 6.7 x 5.5 x 4.9 cm CA125 elevated. Treatment: Patient to follow-up outpatient for possible biopsy of the mass. #Anemia, normocytic Diagnostic: Hemoglobin of 11.2 with MCV of 83 downtrended to 10.1. Treatment: Possibly anemia of chronic disease compounded by closed articular bleeding CTM CBC and transfuse if Hgb <7 Health Maintenance: Disposition: Med Tele Diet: Regular, NPO after midnight PPx DVT: Eliquis 2.5mg bid Code Status: Routine This case was discussed with my attending physician, Dr. Merida, and senior resident, Dr Gaxiola. Even though this this note was carefully revised there may still be minor errors in management engineer due to voice recognition software. Lindsey Fry DO PGY I Attending Provider Attestation/Addendum I reviewed labs, imaging, EKG, home medications and prior available records. Face to face evaluation was performed by me. I have personally examined the patient and discussed assessment and plan with the IM team. I reviewed the resident note and agree with the plan with exceptions as below. Right subcapital femoral fracture Mechanical fall COPD without exacerbation Acute hypotension History of C. difficile colitis Pulmonary mass Status post OR Management of pain as needed PT evaluation: Recommended SNF Continue inhalation treatment Status post IV fluids. Gave midodrine. Monitor BP Continue fidaxomicin Discussed with social services specialist: May need mandatory 10-day hospital stay given her positive C. difficile Outpatient follow-up for evaluation for biopsy
[2025-08-04 13:42] LABS: B-Type Natriuretic Peptide 481 pg/mL (0-100)
[2025-08-04 13:49] LABS: Albumin, Serum 2.8 gm/dL (3.4-4.8); Anion Gap 5 (7-16); BUN/Creatinine Ratio 24 Ratio (12-20); Blood Urea Nitrogen 24 mg/dL (9-23); Calcium 8.8 mg/dL (8.3-10.6); Calcium (Corrected) 9.8 mg/dL (8.5-10.1); Carbon Dioxide 37.3 mMol/L (20.0-31.0); Chloride 101 mMol/L (98-107); Creatinine (Component) 1.0 mg/dL (0.6-1.3); Estimated Creatinine Clearance 25.1 mL/min (>60); Glucose 118 mg/dL (74-106); Osmolality,Calculated 289 (275-295); Phosphorous 2.1 mg/dL (2.4-5.1); Potassium 4.7 mMol/L (3.4-5.1); Sodium 143 mMol/L (136-145); eGFR 54 See Note
--- NOTE | 2025-08-04 15:14 | ESPR_ITS ---
RE: SUELLEN GENTILE : 1935 DATE OF SERVICE: 08/04/2025 Suellen Gentile is an 89-year-old lady admitted with multiple problems including lung disease, hypertension. Admitted to the hospital for fracture of the hip and underwent surgery successful. Appears to be doing better now not having chest pain, shortness of breath. She has recovered well from surgery. Not having any issues. Her vital signs remain stable. Blood pressure 100/45 on the low side. Heart rate is 60. Respirations 16. Temp is normal. Saturation 95%. Neck: Supple. Lung: Decreased breath sounds, no rales or rhonchi. Heart sounds S1 S2 regular, no gallops. Abdomen: Thin and soft. Extremities: No edema. LABORATORY DATA: Showed mild elevation of white count 15,000, possibly stress. Hemoglobin 9.5 slightly low. Chemistry panel shows normal BUN and creatinine. Slight BNP elevation. IMPRESSION: 1. Status post hip surgery successful. No complication. 2. Chronic obstructive lung disease. RECOMMENDATIONS: Continue current medications. Monitor patient for any cardiac decompensation, shortness of breath. DT: 14:56:56 TT: 15:13:00 Ref: [id number] - TID: [id number]
--- NOTE | 2025-08-04 15:42 | PC.SS ---
Addendum entered by Radha Herrera 08/04/25 16:21: SS received call from [facility] they are making room changes to accommodate pt requiring an isolation room until 08-07-25. Per bedside fortino, Shira patient's blood pressure is low. Original Note: SS was informed by bedside nurse, Shira pt is CDIFF positive and requires isolation until 08-07-25. SS has informed [facility] who is following up if they can accept pt.
[2025-08-04] MEDS: MIDODRINE 5 MG TABLET PO (16:36)
--- NOTE | 2025-08-04 18:18 | PC.NURSE ---
1530 DR. MILLER AT BEDSIDE BP 99/47 HR 66 MAP:65, MD TO ADD NEW ORDERS, ORDERS RECEIVED, READ BACK AND CARRIED OUT. 1540: DISCHARGE CANCELLED PT CONTACT [facility], SNF NEEDS TO ACCOMMODATE PT. DR. MILLER MADE AWARE.
[2025-08-04] MEDS: SODIUM CHLORIDE RT SOL 0.9% 3 ML NEBU INH (19:11)
[2025-08-04] MEDS: MONTELUKAST SODIUM 10 MG TABLET PO (20:24)
[2025-08-05] VITALS: BP 107/52; PULSE 65; RESP 17; TEMP 36.9; O2SAT 95
[2025-08-05 04:00] VITALS: BP 124/64; PULSE 66; RESP 16; TEMP 37.1; O2SAT 96
[2025-08-05 05:15] LABS: Basophils # (Auto) 0.0 Thou/mm3 (0.0-0.2); Basophils % (Auto) 0 % (0-2.5); Eosinophils # (Auto) 0.2 Thou/mm3 (0.0-0.5); Eosinophils % (Auto) 2 % (0-10); Hematocrit 30.8 % (36.0-46.0); Hemoglobin 8.9 g/dL (12.0-16.0); Immature Granulocytes Auto 0.06 Thou/mm3 (0.00-0.00); Lymphocytes # (Auto) 1.4 Thou/mm3 (1.0-4.8); Lymphocytes % (Auto) 17 % (10-50); Mean Corpuscular HGB Conc 28.9 g/dl (31.0-37.0); Mean Corpuscular Hemoglobin 24.3 pg (25.0-35.0); Mean Corpuscular Volume 84 fL (80-100); Monocytes # (Auto) 0.8 Thou/mm3 (0.0-0.8); Monocytes % (Auto) 9 % (0-12); Neutrophils # (Auto) 5.9 Thou/mm3 (1.8-7.7); Neutrophils % (Auto) 71 % (37-80); Nucleated Red Blood Cell # 0.00 Thou/mm3 (0.00-0.00); Nucleated Red Blood Cell % 0 /100 WBC (0); Platelet Count 354 Thou/mm3 (140-440); RDW Standard Deviation 49.7 fL (36.4-46.3); Red Blood Count 3.67 Miln/mm3 (4.00-5.20); White Blood Count 8.4 Thou/mm3 (3.6-11.0)
[2025-08-05 05:47] LABS: Alanine Aminotransferase < 7 U/L (10-49); Albumin, Serum 2.7 gm/dL (3.4-4.8); Albumin/Globulin Ratio 1.2 (1.2-2.2); Alkaline Phosphatase 61 U/L (46-116); Anion Gap 4 (7-16); Aspartate Amino Transferase 17 U/L (0-34); BUN/Creatinine Ratio 33 Ratio (12-20); Bilirubin,Total 0.2 mg/dL (0.3-1.2); Blood Urea Nitrogen 26 mg/dL (9-23); Calcium 8.8 mg/dL (8.3-10.6); Calcium (Corrected) 9.8 mg/dL (8.5-10.1); Carbon Dioxide 38.8 mMol/L (20.0-31.0); Chloride 101 mMol/L (98-107); Creatinine (Component) 0.8 mg/dL (0.6-1.3); Estimated Creatinine Clearance 31.4 mL/min (>60); Globulin 2.2 gm/dL (2.3-3.5); Glucose 92 mg/dL (74-106); Magnesium 2.1 mg/dL (1.6-2.6); Osmolality,Calculated 291 (275-295); Phosphorous 1.1 mg/dL (2.4-5.1); Potassium 4.3 mMol/L (3.4-5.1); Sodium 144 mMol/L (136-145); Total Protein 4.9 gm/dL (5.7-8.2); eGFR > 60 See Note
[2025-08-05 08:00] VITALS: BP 139/71; PULSE 80; RESP 18; TEMP 36.2; O2SAT 98
[2025-08-05] MEDS: CALCIUM CARBONATE 600 MG TABLET PO (08:38)
[2025-08-05] MEDS: PANTOPRAZOLE 40 MG TABLET PO (08:39)
[2025-08-05] MEDS: FIDAXOMICIN 200 MG TABLET (NON-FORMULARY) PO (08:39)
[2025-08-05] MEDS: APIXABAN 2.5 MG TABLET PO (08:39)
[2025-08-05] MEDS: CHOLECALCIFEROL (Vitamin D3) 400 IU TABLET PO (08:39)
--- NOTE | 2025-08-05 09:01 | PC.SS ---
Follow up note: Pt is CDIFF positive and requires isolation until 12-25. SS spoke to Rae Voss and Rae Davison from [facility] and they are working on room changes to accept. SS spoke to Breana from [facility] and Ginger from [facility] and they do not have private rooms available. SS [facility] but was only able to leave message.
--- NOTE | 2025-08-05 10:17 | PC.SS ---
SS received call from [facility] who states they can accept pt today after lunch. SS has setup [employer] transportation with Teresa from [employer] for 2pm transportation time to [facility]. Ref# [id number].? SS has requested [facility] and informed him pt is contact precaution for CDIFF..? Per [facility] client care representative [facility] is not a guaranteed transport company.? Estimated time is 3-4 hours.? SS has sent patient?s facesheet and ambulance form to [facility] using [employer].? SS has spoken to Kvng at [facility] who has placed pt on will call list until [facility] Roxy is also aware pt is contact per caution. Bedside nurse, Kiya is aware. [facility] from [facility] is aware. Patient's sons Jesse and Peng are aware.
[2025-08-05 10:51] VITALS: PULSE 70; PULSE 73; RESP 18; O2SAT 96; O2SAT 99
[2025-08-05] MEDS: BUDESONIDE RT 0.25 MG/2 ML NEBU INH (10:51)
[2025-08-05] MEDS: FLUTICASONE/SALMETEROL 250/50 14 DOSE INH 1 PUFF INH (10:51)
[2025-08-05] MEDS: TIOTROPIUM BR 2.5 MCG 120 PUFF/4 GM INHALER INH (10:51)
[2025-08-05 12:00] VITALS: BP 150/88; PULSE 79; RESP 17; TEMP 36.6; O2SAT 94
--- NOTE | 2025-08-05 12:55 | PC.SS ---
JOSAFAT sent to [facility] [employer] using [employer].
--- NOTE | 2025-08-05 13:15 | PC.NURSE ---
report called to Maggy at [facility] at [phone], unit phone number provided if questions arise
--- NOTE | 2025-08-05 15:14 | ESDS_ITS ---
Planned Discharge Date 08/05/25 DS: Providers Provider Date of admission: 08/01/25 17:30 Primary care physician: Thu Jay Admitting Provider: Braden Hall DO Attending Provider on Admission: Arnold Elena MD Consults: 08/01/25 14:54 Consult to Orthopedic Stat Comment: r sub frax Consulting Provider: Pete Pinedo 08/01/25 22:46 Referral Registered Dietitian Routine Comment: Health [facility] Referral - Knowledge Deficit Routine Comment: Positive screening for knowledge deficit needs. 08/02/25 10:02 Consult to Cardiology Stat Comment: Cardiology consult prior to surgery per anesthesia Consulting Provider: Markus Peace 08/02/25 16:08 PT [Referral Physical Therapy] Urgent Comment: Physician Instructions: Instructions: Post Op Right hip screw Attending Provider on DC: Boogie Merida MD Discharging Provider: Boogie Merida MD Diagnosis Problem List Completed Was Problem List Reviewed/Reconciled?: Yes Hospital Course - Hospitalist Hospital Course Hospital course: Patient is an 89-year-old female with past medical history significant for COPD on 2L home O2 as needed at night, pulmonary mass for investigation, MASLD, right ovarian mass, chronic normocytic anemia and recent history of C. difficile infection who presented to [facility] ED on 08/01 for assessment of Rt hip injury after she slid off her chair while to trying to stand up. She was admitted for surgical mgmt of subcapital hip fracture. ED course: Initial vitals were BP 148/88, HR 90, HR 18, T98.5, O2 94% on 2 L via NC Initial labs significant for WBC 10.4, Hgb 11.2, MCV 83,K+ 3.0, bicarb 37.5, CR 0.6, BUN 5, eGFR >6 Hip and pelvis x-ray was suspicious for acute right subcapital hip fracture with mild impaction. Left hip bones of the pelvis intact. Follow-up hip x-ray, showed acute impacted appearing impacted right subcapital hip fracture without dislocation. EKG showed sinus rhythm with first-degree AV block Patient was given potassium chloride PO x1. Hospital course and medical problems: #Right subcapital hip fracture s/p mechanical fall #s/p orthopaedic repair surgery 08/02 #Osteoporosis Patient fell onto her Rt hip while trying to get from her chair. Hip XR showed acute impacted Rt subcapital hip fracture. Hip CT showed (1) linear subcapital fracture of the right proximal femur with no major malalignment. (2) severe multiloculated osteoporosis involving both femoral heads. (3) a large sharply circumscribed lobulated mass arising off the left posterior aspect of the uterine fundus, likely a uterine fibroid. (4) a sharply circumscribed oval fluid density mass located in the right iliac fossa, MRI or pelvic ultrasound for further characterization Echo (08/02) normal LV and RV size and fx. EF 60-65%. Moderate TR. 08/03: XR Hip and pelvis patient underwent orthopedic repair of the fracture with placement of Steimann pins and Calcar screw on 08/02. Plan: -Diet advanced to cardiac -Eliquis 2.5mg bid -PT to work with the patient for functional improvement - Management of pain as needed #hx of C. difficile colitis Patient was hospitalized recently for a weeklong watery diarrhea, fever, and leukocytosis after starting a weeklong course of Augmentin and azithromycin for pneumonia, which the patient had completed. 07/29: Positive C. difficile antigen. WBC 17.7 on previous admission meeting IDSA criteria for severe CDI. She was started on fidaxomicin on 07/29. * Continue Fidaxomicin 200 mg PO BID x 10 days (07/29 - 08/07) * Maintain contact precautions * Strict monitoring of stool output & daily abdominal exams * Trend CBC, BMP, lactate * Continue hydration; maintain euvolemia * Avoid antimotility agents * Low threshold to escalate to ICU evaluation if any signs of fulminant disease: * Hypotension, shock * Ileus (no stool, abdominal distension) * Toxic megacolon symptoms #Electrolyte abnormalities, corrected #Hyperkalemia, improved Monitor potassium level as outpatient #History of COPD Patient previously diagnosed with COPD, however the patient herself stated that she does not know if she has any official testing done. Per chart review, the patient has been using 2 L of supplemental oxygen at night for at least 10 years. Patient saturating 96 to 98% on 2 L of oxygen in ED, no increased work of breathing noted. Treatment: Continue Symbicort and Spiriva. DuoNebs as needed #Anemia, normocytic Stable. Continue to monitor H&H as outpatient #History of hypertension Coreg on hold in the setting of episodes of bradycardia and COPD #Pulmonary mass versus consolidation, posterior superior left lower lobe #Bilateral pleural effusions, mild to moderate Patient noted to have pulmonary mass in the posterior superior left lower lobe on CT chest/abdomen/pelvis. Not identified on chest x-ray. Patient has not had any previous imaging of the chest with CT, so unclear of the evolution of this mass. Patient was noted to have pneumonia in the past per the patient and was recently given antibiotics that she completed. Diagnostic: CT chest/abdomen/pelvis on 07/28 showed 22 mm dense consolidation versus pulmonary mass in posterior superior left lower lobe with mild to moderate bilateral pleural effusions Treatment: Patient to follow-up outpatient for monitoring/biopsy Cocci serology ordered, negative #Thickened gallbladder wall As shown on CT chest/abdomen/pelvis. Low suspicion for acute cholecystitis given lack of right upper quadrant pain. Treatment: Patient to follow-up outpatient #Irregular liver contour Possibly cirrhosis versus primary palisading disease. LFTs within normal limits. Patient denies any history of cirrhosis and denies extensive alcohol history. Treatment: Patient to follow-up outpatient #Right ovarian mass Diagnostic: CT chest/abdomen/pelvis on 07/28 shows 30 mm hypodense right ovarian mass CT abdomen/pelvis on 07/13/2025 shows 37 mm right pelvic cyst Pelvic ultrasound on 07/13/2025 shows solid left ovarian mass measuring 6.7 x 5.5 x 4.9 cm CA125 elevated. Treatment: Patient to follow-up outpatient for possible biopsy of the mass. #Anemia, normocytic Diagnostic: Hemoglobin of 11.2 with MCV of 83 downtrended to 10.1. Treatment: Possibly anemia of chronic disease compounded by closed articular bleeding CTM CBC and transfuse if Hgb <7 Time Spent with Patient Time attestation: Total time spent providing and/or coordinating discharge services: Time spent: Greater than 30 minutes Discharge Results Labs Diagrams: 08/05/25 04:47 08/05/25 04:47 Labs: Short CBC 08/05/25 Range/Units 04:47 WBC 8.4 D (3.6-11.0) Thou/mm3 Hgb 8.9 L (12.0-16.0) g/dL Hct 30.8 L (36.0-46.0) % Plt Count 354 (140-440) Thou/mm3 BMP 08/05/25 04:47 Sodium 144 Potassium 4.3 Chloride 101 Carbon Dioxide 38.8 H BUN 26 H Creatinine 0.8 Glucose 92 Calcium 8.8 Liver Function 08/05/25 Range/Units 04:47 Total Bilirubin 0.2 L (0.3-1.2) mg/dL AST 17 (0-34) U/L ALT < 7 L (10-49) U/L Alkaline Phosphatase 61 (46-116) U/L Albumin 2.7 L (3.4-4.8) gm/dL Exam Vital Signs Temp Pulse Resp BP Pulse Ox O2 Del Method O2 Flow Rate 97.8 F 79 17 150/88 H 94 L Nasal Cannula 2 08/05/25 12:00 08/05/25 12:00 08/05/25 12:00 08/05/25 12:00 08/05/25 12:00 08/05/25 12:00 08/05/25 12:00 Discharge Plan Plan Patient Disposition: Xfer [facility] (SNF) Patient condition on transfer: Stable Care Plan Goals: Please follow-up with your PCP within 1 week of discharge. Please follow-up with orthopedics Dr. Pinedo within 2-week of discharge. You have been started on: -Eliquis 2.5 mg twice daily for 34 more days We have held your carvedilol 12.5 mg twice daily until your systolic blood pressure is greater than 140 mmHg. Continue with fidaxomicin 200 mg twice daily until 08/07/2025, on that day you will be completing your 10-day of course. Continue taking all other medicines as prescribed -Recommended to return back to emergency department if your symptoms persists or worsens - We found that you have a possible pulmonary mass and ovarian mass. There is concern for malignancy. Follow-up as outpatient for evaluation for malignancy Prescriptions/Referrals Prescriptions/Med Rec: New Eliquis 2.5 mg Tablet 2.5 mg PO BID 34 Days Qty: 68 0RF Continued alprazolam [Xanax] 1 MG tablet 1 mg PO BID PRN (Reason: Anxiety) Qty: 0 alendronate 70 mg tablet 70 mg PO QWEEK montelukast 10 mg tablet 10 mg PO QDAY loratadine 10 mg tablet 10 mg PO QDAY tiotropium bromide [Spiriva with HandiHaler] 18 mcg capsule, w/inhalation device 1 cap INHALATION QDAY calcium carbonate-vitamin D3 600 mg(1,500mg) -400 unit tablet 1 tab PO QDAY budesonide-formoterol [Symbicort] 160-4.5 mcg/actuation HFA aerosol inhaler 2 puff INHALATION BID fidaxomicin 200 mg tablet 200 mg PO Q12H 10 Days Qty: 20 0RF pantoprazole [Protonix] 40 mg tablet,delayed release (DR/EC) 40 mg PO QDAY Qty: 30 0RF prednisone 50 mg tablet 50 mg PO QDAY Qty: 7 0RF Proair Digihaler 90 mcg/actuation aero powdr breath act w/sensor 2 inh inhalation QID PRN (Reason: shortness of breath or wheezing) Qty: 1 0RF Held carvedilol 25 mg tablet 25 mg PO BID Hold Instructions: Resume on 08/10/25. Until your SBP is >140 or you see your PCP. Referrals: Thu Jay [Primary Care Provider] Patient/Caregiver Discharge Instructions Discharge Activity: as per physical therapy Other Discharge Activity Instructions:: Please follow-up with your PCP within 1 week of discharge. Please follow-up with orthopedics Dr. Pinedo within 2-week of discharge. You have been started on: -Eliquis 2.5 mg twice daily for 34 more days We have held your carvedilol 12.5 mg twice daily until your systolic blood pressure is greater than 140 mmHg. Continue with fidaxomicin 200 mg twice daily until 08/07/2025, on that day you will be completing your 10-day of course. Continue taking all other medicines as prescribed -Recommended to return back to emergency department if your symptoms persists or worsens Education Materials: After a Hip Fracture: Common Questions Print Language: German Stand Alone Forms: Karen Award Info., Patient Portal Info Letter Discharge Order Discharge Orders: Discharge (Routine); Ordered 08/05/25 Ordered By: Boogie Merida Quality Discharge Quality Measures none
== END 2025-08-05 14:00 | disposition skilled nursing facility (03) | DRG 481 ==
LOC: SERX 15:41 → SERHOLD 17:46 → S3NX 19:55
PROVIDERS: Orthopaedic Surgery Adult Reconstructive Orthopaedic Surgery; Admitting Provider Student in an Organized Health Care Education/Training Program; PCP Nurse Practitioner Family; Visit Provider Internal Medicine
PROC: 0QS634Z Reposition Right Upper Femur with Internal Fixation Device, Percutaneous Approach (ICD-10-PCS; principal; 2025-08-02 15:30)
DX: S72.011A Unspecified intracapsular fracture of right femur, initial encounter for closed fracture (principal); E87.3 Alkalosis; J90 Pleural effusion, not elsewhere classified; K56.7 Ileus, unspecified; Z99.81 Dependence on supplemental oxygen; J44.9 Chronic obstructive pulmonary disease, unspecified; I10 Essential (primary) hypertension; Z60.2 Problems related to living alone; D25.9 Leiomyoma of uterus, unspecified; D64.9 Anemia, unspecified; M81.0 Age-related osteoporosis without current pathological fracture; E87.5 Hyperkalemia; Z86.19 Personal history of other infectious and parasitic diseases; E87.6 Hypokalemia; N83.9 Noninflammatory disorder of ovary, fallopian tube and broad ligament, unspecified; I44.0 Atrioventricular block, first degree; I49.3 Ventricular premature depolarization; R13.10 Dysphagia, unspecified; W01.0XXA Fall on same level from slipping, tripping and stumbling without subsequent striking against object, initial encounter; Z79.83 Long term (current) use of bisphosphonates
CPT/HCPCS: 36415; 73501; 73502; 73521; 73700; 76000; 80053; 80069; 83735; 83880; 84100; 85025; 85610; 85730; 86850; 86900; 86901; 87081; 93005; 93225; 93306; 94640; 97162; 99283; C1713; C1769; J0131; J0690; J1100; J1644; J2405; J2704; J3010; J3475; J3480; J3490; J7120; J7512; J7611; J7999; A9270

== ENCOUNTER 2025-08-23 09:28 | Outpatient (AMB) | payer MEDICARE, MEDICAID, SELFPAY ==
[2025-08-23 09:59] VITALS: BP 130/78; PULSE 86; RESP 18; TEMP 36.2; O2SAT 90; BMI 18.1
--- NOTE | 2025-08-23 09:59 | PD.ORTHCLVIS ---
Vital signs 08/23/25 09:59 Height 1.5 m Height Method Stated Weight 40.9 kg Weight Measurement Method Estimated by Patient BMI 18.1 BP 130/78 Blood Pressure Source Automatic Cuff Blood Pressure Location Left Upper Arm Position Sitting Respiration 18 Pulse 86 Pulse Source Monitor Temp 97.1 F Temp Source Temporal Artery Scan Pulse Oximetry (%) 90 L Oxygen Delivery Method Room Air Med/Allergies Allergies & Medications Allergies codeine Allergy (Mild, Verified 08/23/25 10:01) Vomiting Exam Exam Patient is in no acute distress and is cooperative with the examination today. Breathing is nonlabored. In no respiratory distress. Patient has no paraspinal tenderness. Spinal deformity cannot be appreciated. The gait of the patient is nonantalgic Bilateral extremities were evaluated and demonstrates sensation intact to light touch. Palpable pedal pulses are present. No significant edema is present. Bilateral knees were examined and the patient has full strength and range of motion.. The left hip was examined. Patient was able to flex to 90 degrees, adduct to 30 degrees, abduct to 40 degrees, internally rotate to 20 degrees, and externally rotate to 20 degrees. Patient has a negative logroll. Stinchfield is negative. The patient is nontender diffusely to touch. Right hip incision is clean dry and intact Assessment and Plan Problem List (1) Hip fracture: Status: Acute Plan: Patient is doing well status post right hip percutaneous hip screws. We will see him back in approximately 4 weeks with x-rays Advanced Care Planning Discussion Advance care planning discussed with:: patient and other Office Procedures GNS Level of Care Nursing/Assessment Patient Status: Established Patient Nursing Assessment/Reassesment: Medication Reconciliation, Update PMH in EMR and Vital Signs Coordination of Care: Complex Care and Chronic Disease 1-5, Education Complex Pt/Fam, Consent,records obtained, informed consent, Results/Orders obtained and Staff clarify orders Established Patient Charge Established Patient Point Assignment: 95 Established Patient Point Charge: EP Level 3 (80-115) MA Intake Visit Data Collection New Patient or Established: Established Patient (seen at [facility] within 3 years) Reason for Visit:: 2 WK POST HIP FX Seen by Clinical Staff ONLY (RN/MA): No PCP or OBGYN visit in last 3 months: Yes Hx Now: No Do You Feel Safe at Home: Yes Authorities Contacted: N/A Questionairres Past Medical History Past Medical History Have you ever been diagnosed with any of the following: Neurological Problems Seizures: No Cardiology Problems Congestive Heart Failure: No Hypertension: Yes Respiratory Problems Chronic Obstructive Pulmonary Disease (COPD): Yes (Pt said there's mixed oppinions on if she has COPD or not) Asthma: Yes Genital/Urinary Problems Renal Disease: No Endocrine Problems Diabetes Mellitus Type 1: No Diabetes Mellitus Type 2: No Blood Problems Sickle Cell Disease: No Other Problems Blood Transfusions: No Blood Transfusion Reaction: No Anesthesia Reactions: No Subjective Visit Visit for: follow up visit and hip Immunization / Flu Flu Vaccine in the Last 12 Months: No Flu Vaccine Exclusion Criteria: No Exclusion Criteria History of Present Illness Chief complaint: 3-week postop She really is 3 weeks postop from a percutaneous hip screws. She is doing well. She is walking with a walker in a detention Pain Pain level (0-10): 0 Associated signs & symptoms: none Ambulatory data Ambulatory device: other (specify) (WHEEL CHAIR) Treatments Improvement with previous injections: No Improvement with PT: No Improvement with NSAIDS: no Review of Systems Review of Systems: All systems negative unless otherwise noted in HPI.
== END 2025-08-23 10:10 | disposition home or self-care (01) ==
LOC: HODSRG 09:28
PROVIDERS: PCP Nurse Practitioner Family; Referring Provider Nurse Practitioner Family; Supervising Provider Orthopaedic Surgery Adult Reconstructive Orthopaedic Surgery; Visit Provider Orthopaedic Surgery Adult Reconstructive Orthopaedic Surgery
DX: S72.001D Fracture of unspecified part of neck of right femur, subsequent encounter for closed fracture with routine healing (principal); X58.XXXD Exposure to other specified factors, subsequent encounter; I10 Essential (primary) hypertension
CPT/HCPCS: 99213; G0463